=== PATIENT | female | born 1950 | race Caucasian/White ===

== ENCOUNTER 2022-05-02 08:35 | Outpatient (CLI) | payer MEDICARE, BC, SELFPAY | END 2022-05-02 08:36 | disposition home or self-care (01) | LOC: INJ CL 08:39 | PROVIDERS: PCP Family Medicine; Visit Provider Family Medicine | DX: M53.3 Sacrococcygeal disorders, not elsewhere classified (principal) | CPT/HCPCS: 27096; J0702; Q9966 ==

== ENCOUNTER 2022-06-20 09:34 | Outpatient (CLI) | payer MEDICARE, BC, SELFPAY | END 2022-06-20 09:35 | disposition home or self-care (01) | PROVIDERS: PCP Family Medicine; Visit Provider Family Medicine | DX: M47.816 Spondylosis without myelopathy or radiculopathy, lumbar region (principal) | CPT/HCPCS: 64493; 64494; J0702; Q9966 ==

== ENCOUNTER 2023-01-30 08:26 | Outpatient (CLI) | payer MEDICARE, BC, SELFPAY | END 2023-01-30 08:27 | disposition home or self-care (01) | LOC: INJ CL 08:29 | PROVIDERS: PCP Family Medicine; Visit Provider Family Medicine | DX: M53.3 Sacrococcygeal disorders, not elsewhere classified (principal) | CPT/HCPCS: 27096; J1100; Q9966 ==

== ENCOUNTER 2023-10-23 09:51 | Outpatient (CLI) | payer MEDICARE, BC, SELFPAY ==
--- OUTSIDE RECORDS SUMMARY | 2023-10-23 09:54 | XMS_ITS ---
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 Procedure Estimated Blood Loss Check Surgery Details section. Procedure Findings Check Surgery Details section. Procedure Specimens Taken Check Surgery Details section.
--- OUTSIDE RECORDS SUMMARY | 2023-10-23 09:54 | XMS_ITS ---
Author Organization [facility] Address [address] [place] [id number] Care Team Providers Care Manager Ethics Name Role Phone Elsewhere, Pcp Primary Care Provider Unavailabl e Active Problems Problem Noted Date Diagnosed Date Gynecological Examination Normal 02/16/2022 Overview: S/P total abdominal hysterectomy with bilateral salpingo-oophorectomy for endometrial cancer in 2007. Recommend follow-up every 1-2 years for gynecological exam. She no longer requires Pap smears. Cancer Breast Personal History 02/16/2022 Overview: Diagnosed November, with Stage IA (cT1c, cN0, cM0, G1, ER: Positive, KS: Positive, HER2: Negative) right breast cancer. She continues to follow up every 6 months in the breast Clinic at the [facility] in [place]. 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 on 02/04/2018 Overview: Added automatically from request for surgery [id number] Cancer Colon Personal History 08/15/2017 Cancer Endometrium Personal History 08/15/2017 Overview: She is status post laparoscopic vaginal hysterectomy with bilateral salpingo-oophorectomy and bilateral pelvic and periaortic lymphadenectomy on the January for a grade 1, stage IB endometrial cancer. Last Assessment & Plan: Recommend follow-up in 1-2 years for continued visual assessment. Hypertension 12/15/2016 Other Polyuria 09/12/2016 Body Mass Index 40.0 To 44.9 Adult 08/02/2016 Overview: Body mass index (BMI) 40.0-44.9, adult Rule activated problem due to BMI 40-44 posted on 08/02 at 11:01 CDT. Varicose Veins Of Other Specified Sites 02/22/20 13 Hyperlipidemia Mixed 02/21/2013 Keratosis Seborrheic 09/29/2010 Primary Osteoarthritis Knee Bilateral 02/03/2010 Urinary Urge Incontinence 09/29/2009 Hernia Ventral 02/18/2009 Embolus Pulmonary Personal History 08/05/2008 Lymphedema 04/29/2008 Current Oncology Plans No current plan information found. Past Plans No past plan information found. Radiation Treatments * Plan Last Treated On Elapsed Days Fractions Treated Prescribed Fraction Dose Prescribed Total Dose F1 R breast 03/18/2018 21 15 of 15 267 cGy 4,005 c Gy Reference Point Last Treated On Elapsed Days Session Dose Total Dose [id number] 03/18/2018 21 267 cGy 4,005 cGy Treatment Summaries Malignant Neoplasm Of Breast Female Right (HCC)* Your Survivorship Care Plan Provided on 08/19/18 General Information Patient name Melita Glaser (home) Date of 1950 Introduction This is your personal survivorship care plan. It is both a summary of your treatment history as well as a follow-up plan to guide you through the management of your continued medical care. The plan was developed by a multidisciplinary team of [place] cancer providers to help you understand, discuss, and plan post-treatment needs with your healthcare providers, including your primary care team. It includes detailed medical information regarding your treatment as well as information relating to potential shorter and long-term side-effects post-treatment. It also provides specific tools and direction for self-care, including advice on wellness that encompasses both the physical and emotional aspects of your journey to recovery. What is Survivorship? The most widely used definition of survivorship care involves the following elements: 1. Prevention of recurrent and new cancers, and of other late effects; 2. Surveillance for cancer spread, recurrence, or second cancers; assessment of medical and psychosocial late effects; 3. Intervention for consequences of cancer and its treatment, for example: medical problems such aslymphedema and sexual dysfunction; symptoms, including pain and fatigue; psychological distress experienced by cancer survivors and their caregivers; and concerns related to employment, insurance, and disability; and 4. Coordination between specialists and primary care providers to ensure that all of the survivors health needs are met. Care Team Medical Oncologist Dr. Lopez Your point of contact for questions regarding the adverse effects of IV cancer treatments Your point of contact for questions regarding the adverse effects of oral cancer treatments Surgeon Dr. Contreras Your point of contact for any questions regarding your surgical incision or cancer surgery. Radiation Oncologist Dr. Jeffrey Your point of contact for any questions you have regarding radiation therapy including skin issues related to radiation therapy Internal Medicine Breast Clinic Dr. Renee Redding/[place]mira Calero [facility] Genetic Counselor Veronique Lackey Your point of contact for any questions you have regarding genetic tests for cancer Plastic Surgeon Primary Care Physician No primary care provider on file. Your point of contact for any questions regarding your routine health maintance (e.g blood pressure, cholesterol, other cancer screenings) Cancer Diagnosis and Staging Information Diagnosis Malignant Neoplasm Of Breast Female Right (HCC) Diagnosis date 12/14/2017 Staging information Cancer Staging No matching staging information was found for the patient. Breast laterality right Core needle biopsy date 12/12/2017 Size 4 x4 mm, 7mm Grade 2 (intermediate / moderate grade) Estrogen Receptor (ER) status positive Progesterone Receptor (KS) status positive HER2 pura protein status negative Surgical margins Clear (negative or clean) Was re-excision required? No Comments on re-excision Other pathology information [place] lymph node biopsy performed? Yes # Removed 1 # Positive 0 # with micrometastasis (0.2-2 mm) 0 Extracapsular extension 0 Axillary dissection performed? No # Removed # Positive # with micrometastasis (0.2-2 mm) Extracapsular extension no Total number of positive lymph nodes 0 Angiolymphatic invasion No Dermal invasion No Genetic Testing Performed None needed Background Information Family history Cancer-related family history includes Colon cancer in her aunt, father's brother, father's brother, father's sister, and uncle; Lung cancer in her father; Pancreatic cancer in her mother's sister. Social History Alcohol use reports that she drinks alcohol. Tobacco use reports that she quit smoking about 43 years ago. She started smoking about 50 years ago. She has never used smokeless tobacco. Treatment Summary Breast Cancer Surgeries Oncologic Systemic Therapies [No treatment plan] Lifetime Cumulative Dose Lifetime Dose Tracking: No doses have been documented on this patient for the following tracked chemicals: doxorubicin, epirubicin, idarubicin, daunorubicin, mitoxantrone, bleomycin, doxorubicin HCl pegylated liposomal, daunorubicin citrate liposomal, Pediatric total anthracycline, Adult total anthracycline Oral Endocrine Therapy Start date of endocrine therapy January 2018 Drug name Anastrozole 1 mg daily for 5 years Radiation Therapy:?? Treatment Dates: February 25, 2018 - March 18, 2018 ?? 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 The course of treatment was tolerated well and with anticipated side effects. Mrs. Melita Glaser experienced toxicities of grade 1 radiation dermatitis during radiation treatment. Making Healthy Choices After cancer treatment, most people are eager to get back to good health. Many of the steps you cantake to live well are the same steps everyone can take to improve health: -Exercise -Eat a balanced diet -Stay at a healthy weight -Do not use tobacco -Limit alcohol But after cancer treatment, these steps have added benefits. They can improve your quality of life,and they may lower the risk for cancer coming back. Exercise Regular exercise can help you feel better about yourself after cancer treatment. It also may speed your recovery. Exercise may strengthen your immune system and give you more strength and endurance. You may also feel the following benefits from regular exercise: -Less anxiety -More energy -Better sleep -Better mood -Fewer signs and symptoms of depression -Greater self-worth Try to work up to at least 30 minutes of exercise five or more days a week. But don???t do it all at once. Talk to your health care provider before you start an exercise program. Then start slowly. Sometimes you won???t feel like exercising. That???s OK. Do what you can. Remember that rest also is important to your recovery. Eat a balanced diet Choose a healthy, balanced diet. Include lots of fruits, vegetables and whole grains. It???s not known whether a certain kind of diet can keep cancer from coming back. Studies of low-fat diets or diets that have specific foods show mixed results. In general, it???s a good idea to have many different kinds of food in your diet. Follow these guidelines: -Eat five or more servings of fruits and vegetables every day. -Pick healthy sources of carbohydrates, such as whole grains, legumes, and fruits and vegetables. -Choose proteins low in saturated fat, such as fish, lean meats, eggs, nuts, seeds and legumes. -Limit dietary supplements. The best way to get the vitamins and minerals you need is in the food you eat. If you think you need a supplement, talk to your health care provider before you start to take it. Large amounts of some supplements can hurt you. Stay at a healthy weight You may have gained or lost weight during cancer treatment. Try to get your weight to a healthy level. Talk to your health care provider about what a healthy weight is for you and the best way to reach that weight. Get the sleep you need A good night???s sleep can help restore your energy. Most adults need 7 to 9 hours of sleep a night. To help you sleep, try these tips: -Go to bed and get up at about the same time every day. -Follow a bedtime routine each night. -Make your bedroom as quiet and comfortable as possible. -Don???t use caffeine or alcohol or drink a lot of fluids before bedtime. After cancer treatment, some people struggle with feeling tired. If this is a problem for you, paceyourself during the day. Save energy for the work you need to do. Limit naps to about 10 to 30 minutes in the middle of the afternoon, so they don???t cause problems with your sleep at night. Do not use tobacco Smoking cigarettes or using any other tobacco puts you at risk for several kinds of cancer. If you smoke and you stop now, you could lower your risk for future cancers. If you have tried to quit smoking but have not been able to do so, seek help. Talk to your health care provider about programs in your area that can help you. Limit alcohol If you choose to drink alcohol, keep it to a minimum. Women and anyone over 65 should have no more than one alcoholic drink a day. Men younger than 65 should not have more than two alcoholic drinks aday. Alcohol does have health benefits for some people. Having one drink a day may lower your risk for heart disease. But alcohol also raises your risk for certain cancers. These include breast, mouth and throat cancers. Think about the risks and benefits of drinking alcohol. Talk about alcohol usewith your health care provider. Understand complementary therapies You can use complementary therapies along with your other medical care. In some people, complementary therapies may ease tiredness, help manage stress and lower pain. Examples of these therapies include: -Mind-body therapies, such as relaxation techniques, aromatherapy and meditation. -Therapy that uses manipulation and touch, such as massage. -Energy therapy, such as acupuncture and healing touch. Talk to your health care provider to learn more about the risks and benefits of complementary therapies. Schedule of Surveillance Testing and Visits The basis for the surveillance testing schedule and test recommendations in this section are largely based on guidelines from the [place] [employer] (ASCO), the biggest cancer society regarding clinical practice. -Physical examinations should be performed every 3 to 6 months for the first 3 years, every 6 to 12months for years 4 and 5, and annually thereafter. -Monthly breast and/or chest wall self examinations. -Women who have undergone breast conserving surgery should have a post treatment mammogram 1 year after the initial mammogram and at least 6 months after completion of radiation therapy. Thereafter, unless otherwise indicated, a yearly mammographic evaluation should be performed. Message from provider: Surveillance visits How often: Every 6 months for the 1st 5 years post diagnosis With Who: Primary Care Additional information: Imaging (mammograms and bone scans) How often: Annual diagnostic mammograms for the 1st 5 years post diagnosis and then annual screening mammograms there after Where: Her local provider clinic Additional information: Follow-up care with your Primary Care Physician (PCP) Follow-up care with your primary care physician is recommended for age- appropriate cancer screenings, for monitoring blood pressure, cholesterol, blood sugar, weight, and for other medical conditions. Your Potential side effects x indicates this is a possibility for you x Side Effects from Endocrine Therapy Endocrine therapy uses medication that travels through your body to either reduce the amount of hormones that reach hormone-sensitive cancer cells or block the action of estrogen so cancer cells stopgrowing and . Women whose tumors are hormone receptor positive generally have a lower rate of cancer returning inthat location and have a longer overall survival rate. Hormonal therapy appears to lessen the chance of recurrence and improve survival rates. Tamoxifen (Nolvadex???) blocks a tumor???s ability to use hormones. It typically is taken daily in pill form for five years after cancer surgery. Tamoxifen is available for women who are premenopausal or postmenopausal. Common side effects of tamoxifen include: -Hot flashes or night sweats. -Nausea. -Irregular periods in women prior to menopause. -Vaginal discharge. -Vaginal itching, dryness or irritation. Less frequent symptoms include depression, loss of appetite, eye problems such as cataracts, headache, and weight gain. There also can be an increased risk of blood clots, strokes and uterine cancerssuch as endometrial cancer. Another group of hormonal medications called aromatase inhibitors are available for post-menopausalwomen who have hormone receptor positive breast cancer. Rather than blocking a tumor???s ability touse estrogen, aromatase inhibitors prevent tumor growth by reducing the amount of estrogen the bodyproduces. The three aromatase inhibitors currently approved for use in breast cancer treatment are anastrozole (Arimidex???), exemestane (Aromasin???) and letrozole (Femara???). Aromatase inhibitors come in pill form and typically are taken daily for five years. They appear to be as effective as tamoxifen, with fewer side effects and less risk of blood clots and uterine cancer. However, aromatase inhibitors are associated with a small increased risk for osteoporosis. Common side effects of aromatase inhibitors include: -Joint/ muscle pain -Muscle pain. -Hot flashes. -Vaginal dryness. -Fatigue x Side Effects from Radiation Therapy Side effects from radiation therapy tend to build up; they may affect you more toward the end of your radiation treatment. Side effects usually lessen over time after radiation treatment ends. Common side effects include the following: Fatigue is the most common side effect of radiation therapy. Try to plan for this possibility by limiting your extra activities so that you can rest whenever you feel the need. Sometimes putting yourfeet up for 15 to 20 minutes can help you feel rested. Your skin near the radiation site may feel as if it were sunburned. It may be itchy, red, shiny, sore or swollen and may peel or blister. For some women, sensation at the radiation site may increase or it may decrease. -You may have swelling, pain, or tenderness in the breast. -Your breast may become tender, darker, firmer or smaller from radiation therapy. -You also may have a feeling of heaviness in the breast. These changes may be permanent. More serious, long-term complications are rare but they can occur. These include rib fractures, lung inflammation, nerve damage and injury to the heart. In extremely rare cases, a new tumor may result from radiation therapy. If you receive radiation after a mastectomy with immediate reconstruction,you may be at higher risk for healing problems and for the reconstruction to fail, and you may needmore surgery. How your breast looks may not be as good as it would have been had you not received radiation. If you experience or have concerns about the side effects of radiation therapy, talk with your health care provider. Your Ongoing Side Effects x indicates this is a possibility for you x Fatigue Some cancer survivors report that they still feel tired or worn out. In fact, fatigue is one of themost common complaints during the first year of recovery. Rest or sleep does not cure the type of fatigue that you may have. Doctors do not know its exact causes. The causes of fatigue are different for people who are receiving treatment than they are for those who have finished. Fatigue during treatment can be caused by cancer therapy. Other problems can also play a part in fatigue, like anemia (having too few red blood cells) or having a weak immune system. Poor nutrition, not drinking enoughliquids, and depression can also be causes. Pain can make fatigue worse. Researchers are still learning about what may cause fatigue after treatment. How long will fatigue last? There is no normal pattern. For some, fatigue gets better over time. Some people may still feel energy loss years later. Some people feel very frustrated when fatigue lasts longer than they think it should and when it gets in the way of their normal routine. They may also worry that their friends, family, and coworkers will get upset with them if they continue to show signs of fatigue. Getting Help Talk with your doctor or nurse about what may be causing your fatigue and what can be done about it. Ask about: -How many medicines you are taking or other medical problems you have might affect your energy level -How you can control your pain, if pain is a problem for you -Exercise programs that might help, such as walking -Relaxation exercises -Changing your diet or drinking more fluids -Medicines or nutritional supplements that can help -Specialists who might help you, such as physical therapists, occupational therapists, procedures nurse, or mental health care providers Coping With Fatigue Here are some ideas: -Plan your day. Be active at the time of day when you feel most alert and energetic. -Save your energy by changing how you do things. For example, sit on a stool while you cook or washdishes. -Take short naps or rest breaks between activities. -Try to go to sleep and wake up at the same time every day. -Do what you enjoy, but do less of it. Focus on old or new interests that don???t tire you out. Forexample, try to read something brief or listen to music. -Let others help you. They might cook a meal, run errands, or do the laundry. If no one offers, askfor what you need. Friends and family might be willing to help but may not know what to do. -Choose how to spend your energy. Try to let go of things that don???t matter as much now. -Think about joining a support group. Talking about your fatigue with others who have had the same problem may help you find new ways to cope. x Changes in Weight and Eating Habits Some survivors who have had certain kinds of chemotherapy or medicines have problems with weight gain. Sometimes the added pounds stay on even when treatment ends. Breast cancer survivors who have had certain types of chemotherapy gain weight in a different way--they may lose muscle and gain fat tissue. Unfortunately, the usual ways people try to lose weight may not work for them. Try to be patient with yourself. Look for the positive things that you can control, such as eating a healthy diet. Try to focus on the fact that treatment is over, and you are trying to get stronger with time. Some cancer survivors have the opposite problem: they have no desire to eat, and they lose weight. Some men say that weight loss or loss of muscle tone is a bigger concern for them than weight gain. It makes them feel less strong and like less of a man. Managing a Healthy Weight For weight issues, ask your doctor or nurse about: -Doing strength-building exercises, if you have lost muscle or gained fat tissue -Talking to a dietitian or lather apprentice who can help you plan a healthy diet that won???t add extrapounds Regaining a Lost Appetite Here are some tips that have helped others improve their appetites: -Start with small meals. Five small meals a day may be easier to manage than three larger ones. -Focus on your favorite foods. If the thought of eating still lacks appeal, try the foods you really liked before treatment to jump-start your appetite. Try adding some fresh fruit, juice, or other flavoring to improve the taste. -Stay active. A short walk before a meal can help you feel hungry. Menopause Symptoms After chemotherapy, some women stop getting their periods every month-- or stop getting them altogether. Some cancer treatments (and the medicines tamoxifen and raloxifene) can cause changes in women???s bodies and reduce the amount of hormones they make. These changes can cause your periods to stop, as well as cause other symptoms of menopause (also called ???the change?? or ???change of life?? ). Over time, some women will start getting their periods again (this is more likely foryounger women), but others will not. Even though your doctor may have discussed early menopause with you, give yourself permission to mourn the loss of your fertility. Some common signs of menopause are: Irregular periods. One of the first signs is a change in your periods. They may become less regular. They could be engagement quality consultant. Some women have short times of heavy bleeding. Sometimes, they stop all of a sudden. Hot flashes. Hot flashes are often worse at night and can affect sleep or cause mood changes. Problems with your vagina or bladder. Tissues in these areas become drier belt conveyor and thinner. You may be more likely to get vaginal infections. As you get older, you may also have problems holding your urine or urinary tract problems. Lack of interest in having sex. These changes may make it hard for you to become sexually aroused. Fatigue and sleep problems. You may feel tired or have trouble getting to sleep, getting up early, or getting back to sleep after waking up in the middle of the night. Memory and other problems, such as depression, mood swings, and irritability. Some of these, especially memory problems, may be related to growing older. There may be a connection between changes in your hormone levels and your emotions. Other changes in your body. You may notice your waist getting bigger, less muscle and more fat around your body, or thinning and loss of elasticity of your skin. Ask your doctor if you still need to use control, even if you are not getting your period. Understand the Emotional Impact x indicates this is a possibility for you After cancer treatment, you may feel your life has changed in some ways that are hard to explain. It may seem hard to get back to ???normal.?? It is common for people who have had cancer to feel many emotions, including anxiety, depression, anger, grief or guilt. These are reasonable responses to a big health change. To help handle these emotions, you may need to decide what ???normal?? means to you after all the changes you have gone through. Doing this may help you find a new way to live that brings you more dex and meaning. If you feel emotionally overwhelmed after your cancer treatment, tell your health care provider. She or he may be able to connect you with a support group or other support services. Your health care provider may also offer you treatment choices for specific concerns or refer to you a mental health p fessional. x Anxiety Anxiety is a common emotion among people who have had cancer. Fear of cancer coming back often causes anxiety. Because of this, follow-up testing can be stressful. Other common sources of anxiety include job issues, concerns about money or relationships, and worries about the physical effect of cancer treatment. What you can do -Talk about your worries with someone you trust. -Try stress management tools, such as meditation, prayer and regular exercise. -Learn the signs that may tell you your cancer has returned. Learn what you can do to lower your cancer risk. -Focus on the healthy choices you can make in areas of your life that you can control. If anxiety makes your daily life difficult, see your health care provider. x Depression After cancer treatment, you may have many different feelings as you think about what you have been through. Some of these feelings may not be positive. That is normal. However, negative feelings thatstay with you for more than two weeks or get in the way of your daily life can be signs of depression. If this happens to you, talk to your health care provider. Symptoms of depression include: -Sadness -Hopelessness -Loss of interest in activities -Irritability -Difficulty Sleeping -Change in appetite -Difficulty concentrating -Problems thinking clearly Anger Many cancer survivors feel a sense of anger. Cancer may change many parts of your life, including relationships, school, work, and correction plans. Anger is a normal response to those changes. What you can do It is important to express your anger in a healthy way. Talk about the way you are feeling with someone you trust. Think about whether you can talk with: -Friends -Family members -Other people who have been through cancer -A professional counselor -Your health care provider x Spiritual issues A cancer diagnosis may change your spirituality. You may find it to be stronger and deeper and fromthe challenges you have overcome, or you may feel abandoned and struggle with the question Why me? What you can do - Take time to think about your spirituality. Try to find a sense of peace within your own spiritual framework. -Talk with your spiritual or leadership recruiter to help guide you through some of the questions raised by your illness. -Consider using the [employer] staff at [facility] to help you with your spiritual questions. x Back to Work Going back to work can be a challenging transition after cancer treatment. If you have questions about employment, ask your health care provider to refer you to a [facility] social work msw. He or shecan give you workplace information. Americans with Disabilities Act If you believe that your physical function is temporarily or permanently affected by cancer or its treatment, you should know about the Americans with Disabilities Act, or ADA. ADA bans discrimination against qualified employees with disabilities who can perform the essential functions of their job, with or without reasonable accommodations. Cancer survivors who return to work are due any reasonable change or adjustment in their work environment that allows a person with a disability to have equal opportunities. A social work msw can help you look at your situation and the Americans with Disabilities Act Genetic testing and employment Sometimes cancer diagnosis and treatment involves genetic testing. This information becomes a part of your medical record. It is against the law for an employer to discriminate against a job applicant or a current or former employee because of genetic information. Additional Information for you: Some of the information provided in this care plan was provided by the [place] Department of Health and Human Services and National Cancer Leupp. (2014) Facing Forward: Life after cancer treatment. NIH Publications No. 14-8978. Resources [employer] [place] [employer] The [place] [employer] is a non-profit organization that has developed many resources for patients and families dealing with a cancer diagnosis. http://www.cancer.org National Cancer Leupp The National Cancer Leupp (NCI) is part of the National [employer] for Health and is a governmental organization with a mission focused on cancer research and training. The NCI has developed many patient resources related to cancer. Included here is their Facing Forward which is an electronic resource focused on helping patients negotiate their lives after cancer treatment. http://www.cancer.gov http://www.cancer.gov/cancertopics/coping/dsgd-gvvqx-yqbwhzkmr [facility] Cancer Education Program www.[employer].org/cancer-education Cancer Support Community www.cancersupportcommunity.org/?gclid=BMrd-6-1jZUJJLxWsKjfweLE6i [facility] Living with Cancer blog www.[employer]/livingwithcancer [facility] web site www.[employer].org Resolved Problems Problem Noted Date Diagnosed Date Resolved Date Thrombosis Deep Vein Without Delivery 02/21/2013 08/15/2017 Morbid obesity 01/09/2012 08/15/2017 Edema 10/12/2008 08/15/2017 Thrombosis Deep Vein Acute Lower Extremity 05/22/2008 08/15/2017 Overview: Deep Vein Thrombosis Lower Extremity NOS Malignant Neoplasm Of Endometrium 04/22/2008 08/15/2017 Overview: Ca Uterus Endometrial Malignant Neoplasm Of Uterus Endometrial 04/22/2008 08/15/2017 Malignant Neoplasm Of Endometrium 01/29/2008 08/15/2017 Malignant Neoplasm Of Rectum 05/31/2004 08/15/2017
--- OUTSIDE RECORDS SUMMARY | 2023-10-23 09:54 | XMS_ITS | Encounter Summary ---
Author Organization [facility] Address [address] [place] [id number] Care Team Providers Care Signwriter Name Role Phone Elsewhere, Pcp Primary Care Provider Unavailabl e Reason for Visit * Reason Comments Follow-up Post Botox * Outpatient (Routine) - Closed Specialty Diagnoses / Procedures Referred By Sarina t Referred To Contact Urology Nicolasa Fields APRN, C.N.P. [address] [phone] [facility] Region Referral ID Status Reason Start Date Expiration Date Visits Re quested Visits Authorized [id number] Closed 08/21/2023 02/19/2025 1 1 Encounter Details Date Type Department Care Team (Late st Contact Info) Description 10/08/2023 2:30 PM CDT Office Visit Department of Urology in [place] [address] [place] [phone] Nicolasa Fields APRN, C.N.P. [address] [phone] Urinary Urge Incontinence (Primary Dx) Social History Tobacco Use Types Packs/Day Years Used Date Smoking Tobacco: Former Cigarettes 0 12/23/1967 - 06/22/1975 Smokeless Tobacco: Never Tobacco Cessation:Counseling Given: Not Answered Comments:Only a social smoker when I smoked. Maybe smoked a pack a week. Alcohol Use Standard Drinks/Week Comments Yes 1 (1 standard drink = 0.6 oz pur e alcohol) Rarely drink. [facility] Utilities Answer Date Recorded In the past 12 months has th e electric, gas, oil, or water company threatened to shut off services in your home? No 10/01/2023 Humiliation, Afraid, Rape, and Kick questionnair e Answer Date Recorded Within the last year, have y ou been afraid of your partner or ex-partner? No 09/18/2022 Within the last year, have y ou been humiliated or emotionally abused in other ways by your partner or ex-partner? No Within the last year, have y ou been kicked, hit, slapped, or otherwise physically hurt by your partner or ex-partner? No 09/18/2022 Within the last year, have y ou been raped or forced to have any kind of sexual activity by your partner or ex-partner? No 09/18/2022 Social Connection and Isolat ion Panel [NHANES] Answer Date Recorded In a typical week, how many times do you talk on the phone with family, friends, or neighbors? More than three times a week 09/04/2022 How often do you get togethe r with friends or relatives? More than three times a week 09/04/2022 How often do you attend chur ch or voodoo services? 1 to 4 times per year 09/04/2022 Do you belong to any clubs o r organizations such as latter day groups, unions, fraternal or athletic groups, or school groups? Yes 09/04/2022 How often do you attend meet ings of the clubs or organizations you belong to? More than 4 times per year 09/04/2022 Are you , , di vorced, , never , or living with a partner? 09/04/2022 AUDIT-C Answer Date Recorded Q1: How often do you have a drink containing alc ohol? 2-4 times a month 09/04/2022 Q2: How many drinks containi ng alcohol do you have on a typical day when you are drinking? 1 or 2 09/04/2022 Q3: How often do you have si x or more drinks on one occasion? Never 09/04/2022 Overall Financial Resource Strain (CARDIA) Answe r Date Recorded How hard is it for you to pa y for the very basics like food, housing, medical care, and heating? Not hard at all 09/18/2022 PHQ-2 Answer Date Recorded PHQ-2 Score 0 11/25/2019 [facility] Occupat ional Health - Occupational Stress Questionnaire Answer Date Recorded Do you feel stress - tense, restless, nervous, or anxious, or unable to sleep at night because your mind is troubled all the time - these days? Only a little 09/04/2022 Exercise Vital Sign Answer Date Recorde d On average, how many days pe r week do you engage in moderate to strenuous exercise (like a brisk walk)? 2 days 10/01/2023 On average, how many minutes do you engage in exercise at this level? 50 min 10/01/2023 Hunger Vital Sign Answer Date Recorded Within the past 12 months, y ou worried that your food would run out before you got the money to buy more. Never true 10/01/19 24 Within the past 12 months, t he food you bought just didn't last and you didn't have money to get more. Never true 10/01/2023 PRAPARE - Transportation Answer Date Re corded In the past 12 months, has l ack of transportation kept you from medical appointments or from getting medications? No 09/21 In the past 12 months, has l ack of transportation kept you from meetings, work, or from getting things needed for daily living? No 10/01/2023 Nutrition Answer Date Recorded On average, how many serving s of fruits and vegetables do you eat per day (serving size is equal to 1 cup or approximately the size of a tennis ball)? 3-5 10/01/2023 Dental Answer Date Recorded Dental: Regular Dentist Yes 06/15/19 Employment Answer Date Recorded Employment status Retired 10/01/2023 Housing Stability Answer Date Recorded What is your living situation today? I have a [facility] [place] [address] to live 10/01/2023 Education Answer Date Recorded What is the highest level of school you have completed or the highest degree you have received? 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 - 10/08/2023 2:30 PM CDT SUBJECTIVE CHIEF COMPLAINT/REASON FOR VISIT Chief Complaint Patient presents with Follow-up Post Botox HISTORY OF PRESENT ILLNESS Melita is a pleasant 72-year-old female here today for follow-up after intravesical Botox injectionswith Dr. Livingston on September 27, 2023. She is emptying her bladder well, her urinary symptoms are greatly improved. She gets up once in the night to urinate. She takes trospium 20 mg tablet at bedtime and is very pleased with results. The following portions of the patient's history were reviewed and updated as appropriate: allergies, current medications, family history, medical history, social history, surgical history, and problem list. DIAGNOSTIC Postvoid residual by bladder scan 21 mL ASSESSMENT / PLAN 1. Urinary Urge Incontinence She is doing well, emptying her bladder well, urinary symptoms have improved. Plan to follow-up in Urology Department as needed. When she is ready to schedule Botox injections again she will contact us. All questions answered. Signed by: Nicolasa Fields APRN, C.N.P. 10/08/2023 4:50 PM CDT documented in this encounter Plan of Treatment Not on file documented as of this encounter Visit Diagnoses Diagnosis Urinary Urge Incontinence- Primary documented in this encounter Care Teams Signwriter Relationship Specialty Start Date End Date Elsewhere, Pcp PCP - General Internal Medicine 01/04/23 documented as of this encounter
--- OUTSIDE RECORDS SUMMARY | 2023-10-23 09:54 | XMS_ITS | Clinical Summary ---
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 For routine questions regarding patient records, call [phone] during business hours, M-F 8:00 AM - 5:00 PM Central Time. Record requests for emergency care only can be directed to [phone] at any time.[facility] Allergies Active Allergy Reactions Criticality Noted Date Comments Clams GI intolerance Medium 10/12/2008 Projectile vomiting Lisinopril Cough Medium 10/27/2016 Oxycodone-Acetaminophen Anxiety 08/15/2017 Medications Medication Sig Dispensed Refills Start Date End Date Status atorvastatin (LIPITOR) 20 mg tablet Take 20 mg by mouth daily. 10/27/2016 Active cholecalciferol (VITAMIN D3) 1,000 Unit capsule Take 1 tablet by mouth daily. 02/25/2014 Active cinnamon bark 500 mg capsule Take 1,000 mg by mouth daily. 02/15/2011 Active docusate sodium (COLACE) 100 mg capsule Take 100 mg by mouth as needed for constipation. 02/25/2014 Active multivit-min/iron /folic/lutein (CENTRUM SILVER WOMEN ORAL) Take 1 tablet by mouth daily. 10/04/2010 Active piroxicam (FELDENE) 20 mg capsule Take 1 capsule by mouth daily. 10/04/2010 Active metFORMIN XR (GLUCOPHAGE-XR) 500 mg 24 hr tablet Take 1 tablet by mouth daily. 05/14/2021 Active DME Gradient compression garments & suppliesIndicatio ns:Lymphedema DME Order Open Toe 4 Unspecified 02/16/2022 Active losartan (COZAAR) 100 mg tablet 08/28/2022 Active anastrozole (ARIMIDEX) 1 mg tabletIndications :Cancer Breast Personal History TAKE 1 TABLET(1 MG) BY MOUTH DAILY. SWALLOW WHOLE WITH A DRINK OF WATER 90 tablet 11/17/2022 Active potassium chloride (KLOR-CON M) 10 mEq ER tablet Take 10 mEq by mouth daily with breakfast. 10/04/2022 Active furosemide (LASIX) 20 mg tablet Take 20 mg by mouth daily. 10/04/2022 Active losartan (COZAAR) 50 mg tablet Take 50 mg by mouth daily. 03/16/2023 Active trospium (SANCTURA) 20 mg tablet TAKE 1 TABLET(20 MG) BY MOUTH TWICE DAILY BEFORE BREAKFAST AND DINNER 180 tablet 3 05/28/2023 Active tirzepatide (MOUNJARO) 2.5 mg/0.5 mL pen injector injection Inject 2.5 mg under the skin over 168 hr. 08/29/2023 Active tirzepatide (MOUNJARO) 15 mg/0.5 mL pen injector injection Inject 15 mg under the skin over 168 hr. 12/19/2023 Active tirzepatide (MOUNJARO) 12.5 mg/0.5 mL pen injector injection Inject 12.5 mg under the skin over 168 hr. 11/21/2023 12/19/2023 Active tirzepatide (MOUNJARO) 10 mg/0.5 mL pen injector injection Inject 10 mg under the skin over 168 hr. 10/24/2023 11/21/2023 Active tirzepatide (MOUNJARO) 7.5 mg/0.5 mL pen injector injection Inject 7.5 mg under the skin over 168 hr. 09/26/2023 Active cefdinir (OMNICEF) 300 mg capsule Take 1 capsule (300 mg total) by mouth every 12 (twelve) hours for 7 days. 14 capsule 09/18/2023 09/25/2023 Hospital, Clinic, or Other Facility Administered Medication Ordered Dose Route Frequency Start Date End Date Status onabotulinumtoxinA injection 100 Units (BOTOX)Indications:Urinary Urge Incontinence,Hypertonic Bladder 100 Units dtrs Once 09/27/2023 09/27/2023 Ended Active Problems Problem Noted Date Diagnosed Date Gynecological Examination Normal 02/16/2022 Overview: S/P total abdominal hysterectomy with bilateral salpingo-oophorectomy for endometrial cancer in 2007. Recommend follow-up every 1-2 years for gynecological exam. She no longer requires Pap smears. Cancer Breast Personal History 02/16/2022 Overview: Diagnosed November, with Stage IA (cT1c, cN0, cM0, G1, ER: Positive, OK: Positive, HER2: Negative) right breast cancer. She continues to follow up every 6 months in the breast Clinic at the [facility] in [place]. 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 on 02/04/2018 Overview: Added automatically from request for surgery [id number] Cancer Colon Personal History 08/15/2017 Cancer Endometrium [...] Embolus Pulmonary Personal History 08/05/2008 Lymphedema 04/29/2008 Resolved Problems Problem Noted Date Diagnosed Date [...] 08/15/2017 Malignant Neoplasm Of Rectum 05/31/2004 08/15/2017 Encounters Date Type Department Care Team Description 10/08/2023 2:30 PM CDT Office Visit Department of Urology in [place], [place] [address] [place] [address] Nicolasa Fields APRN, C.N.P. Urinary Urge Incontinence (Primary Dx) 09/27/2023 2:30 PM CDT Procedure visit Department of Urology in [place], [place] [address] [phone] Schuyler Livingston M.D. Hypertonic Bladder (Primary Dx); Urinary Urge Incontinence 09/18/2023 Orders Only Department of Urology in [place], [place] [address] [address] Nicolasa Fields APRN, C.N.P. 09/14/2023 11:20 AM CDT - 09/14/2023 11:59 PM CDT Hospital Encounter Department of Laboratory Medicine in [place], [place] [address] [place] [phone] Nicolasa Fields APRN, C.N.P. Urinary Urge Incontinence Discharge Disposition: Home or Self Care from Last 3 Months Immunizations Name Administration Dates Next Due H1N1 Inj 04/06/2009 HZV (ZOSTAVAX) 05/05/2009 HepA Adult 12/15/2016,06/03/2000 HepB Adult 12/30/2013,07/24/2013,06/27/2013 Influenza (IM) Preservative Free 01/14/2009,01/22 Influenza TIV (IM) 01/01/2019, 1,03/07/2005,2003,02/19/2003 Influenza high dose QV(65 ye ars or older) (PF) 01/09/2020 Influenza, Quadrivalent, Adj uvanted, Preservative Free 01/23/2023,01/01/2022,01/27/2021 Influenza, Unspecified 03/07/2005,02/18/2004, PCV13 03/06/2014 PCV20 10/05/2022 PPSV23 07/29/2015 RSV: respiratory syncytial v irus (ABRYSVO) bivalent vaccine 01/23/2023 RZV (SHINGRIX) 09/23/2018, 9(Deferred: Other - Patient states 05/24/2018),07/22/2018,05/24/2018 SARS-COV-2 (COVID-19) - MODERNA(Discontinued) 07/10/2020,06/10/2020 SARS-COV-2 (COVID-19) - PFIZ ER (Discontinued)(12 years or older) 12/16/2020 Td Preservative Free (TENIVA C, DECAVAC) 10/27/2016 Tdap 09/27/2006 TyVi (inj) 06/18/2013 Typhoid, Unspecified 05/24/2000 Typhus (discontinued) 05/24/2000 influenza high dose (65 year s or older) (PF) 01/01/2019,01/21/2018,01/26/2014 Family History Medical History Relation Name Comments Colon cancer Aunt Paternal Age 52 Lung cancer Father Chris Cabezas passed at 69 Colon cancer Father's Brother 1 Fran Cabezas Colon cancer Father's Brother 2 Jeremiah Cabezas Daughter, Alda, had colon cancer Colon cancer Father's Sister Mattie Castillo No Known Problems Maternal Grandfather pa ssed in 80's No Known Problems Maternal Grandmother po ssible stroke Arthritis Mother Chanelle Cabezas Osteoporosis Mother Chanelle Cabezas pelvic fracture Mother Chanelle Cabezas related to fall Other cancer Mother's Brother 1 Alonso Gutierrez Bladd er cancer Stroke Mother's Brother 2 Sigmund Chogabonackayla Stroke Mother's Brother 3 Iain Chogabonackayla Pancreatic cancer Mother's Sister Mira Riggs Lung disease Paternal Grandmother overweight Sister 1 dry eye Sister 2 No Known Problems Son 1 No Known Problems Son 2 Colon cancer Uncle Paternal Age 56 Relation Name Status Comments Aunt Paternal Father Chris Cabezas Father's Brother 1 Fran Cabezas Father's Brother 2 Jeremiah Cabezas Father's Sister Mattie Castillo Maternal Grandfather Maternal Grandmother Mother Chanelle Cabezas Mother's Brother 1 Alonso Gutierrez Mother's Brother 2 Sigmbeth Gutierrez Mother's Brother 3 Iain Mynorki Mother's Sister Mira Riggs Paternal Grandfather Paternal Grandmother Sister 1 Alive Sister 2 Alive Son 1 Alive Son 2 Alive Uncle Paternal Social History Tobacco Use Types Packs/Day Years Used Date Smoking Tobacco: Former Cigarettes 0 12/23/1967 - 06/22/1975 Smokeless Tobacco: Never Tobacco Cessation:Counseling Given: Not Answered Comments:Only a social smoker when I smoked. Maybe smoked a pack a week. Alcohol Use Standard Drinks/Week Comments Yes 1 (1 standard drink = 0.6 oz pur e alcohol) Rarely drink. [facility] Utilities Answer Date Recorded In the past 12 months has e [employer], oil, or water the grafter threatened to shut off services in your [...] often do you attend chur ch or taoism services? 1 to 4 times per year 09/04/2022 Do you belong to any clubs o r organizations such as uatsdin groups, unions, fraternal or athletic groups, or [...] Answer Date Recorded PHQ-2 Score 0 11/25/2019 [facility] of Occupat ional Health - Occupational Stress [...] Date Recorded Dental: Regular Dentist Yes 06/15/19 21 Employment Answer Date Recorded Employment status Retired 10/01/2023 Housing Stability Answer Date Recorded What is your living situation today? [facility] 10/01/2023 Education Answer Date Recorded What is the highest level of school you have completed or the highest degree you have received? Master's degree (e.g., MA, MS, Enrique, MEd, ROOFER, ALLYN) 01/09/2019 Sex and Gender Information Value Date Recorded Sex Assigned at Female 09/19/2017 7:29 PM CDT Gender Identity Female 09/19/2017 7:29 PM CDT Sexual Orientation Straight 09/19/2017 7: 29 PM CDT Last Filed Vital Signs Vital Sign Reading Time Taken Comments Blood Pressure 147/84 03/29/2023 3:04 PM [employer] Pulse 83 03/29/2023 3:04 PM [employer] Temperature 37 ??C (98.6 ??F) 12/06/2020 1:49 PM CDT Respiratory Rate 20 11/25/2019 12:44 PM CDT Oxygen Saturation 95% 12/06/2020 1:49 PM CDT Inhaled Oxygen Concentration - - Weight 131 kg (289 lb 11 oz) 03/29/2023 3:04 PM [employer] Height 168.5 cm (5' 6.34) 03/29/2023 3:04 PM CS T Body Mass Index 46.28 03/29/2023 3:04 PM [employer] Plan of Treatment Health Maintenance Due Date Last Done Comments CT Colonography 1950 Cologuard 1950 Hepatitis C Screening 1950 Depression Screening (Annual PHQ-2) 04/23/2023 Fall Risk Screen (Annual) 04/23/2023 Office Visit for Blood Pressure Check / Re-check 06/28/2023 03/29/2023 Influenza Vaccine (#1) 2024 , 01/01/2022, 01/27/2021, Additional history exists Creatinine Level (Kidney Function Test) 03/20/2024 03/20/2023, 10/17/2022, 10/04/2022, Additional history exists Potassium Level 03/20/2024 03/20/2023, 09/22, 10/04/2022, Additional history exists Sodium Level 03/20/2024 03/20/2023, 09/22, 10/04/2022, Additional history exists Mammogram 03/29/2024 03/29/2023, 12/2021, 02/01/2021, Additional history exists Colonoscopy 02/08/2026 02/08/2021, 01/21, 10/05/2010 (Performed elsewhere), Additional history exists Colorectal Cancer Surveillance 02/08/2026 Fasting Glucose for Diabetes Screening 03/20/2026 03/20/2023, 10/17/2022, 10/04/2022, Additional history exists DTaP,Tdap,and Td Vaccines (3 - Td or Tdap) 10/27/2026 10/27/2016, 09/27/2006 Lipid (Cholesterol) Screening 03/20/2028 03/20/2023, 03/03/2022, 02/18/2021, Additional history exists Hepatitis B Vaccines Completed 12/30/2013, 07/24/2013, 06/27/2013 Hepatitis A Vaccines Completed 12/15/2016, 06/03/19 Zoster Vaccines Completed 09/23/2018, 04/2018, 05/24/2018, Additional history exists Bone Density Scan (Osteoporosis Screen) Discontinued 03/01/2022 Pneumococcal vaccine (65+ years) Completed 10/05/2022, 07/29/2015, 03/06/2014 RSV vaccine - (32-36 weeks) or 60+ years Completed 01/23/2023 COVID-19 Vaccine Completed 07/24/2023, 06/2022, 08/24/2022, Additional history exists HPV Vaccines Aged Out No longer eligi ble based on patient's age to complete this topic Medical Devices Implanted Type [employer] Device Identifier Shelf Expiration Date Model / Serial / Lot Clp Hrzn Ti 6 Clp Md Dank - [id number] Implanted:Qty: 1 on 12/31/2017 by Monica Contreras M.D. at [facility] Hardware e.g. pins/screw s/rods [employer] [id number] / / Clp Hrzn Ti 6 Clp Sm Red - [id number] Implanted:Qty: 1 on 12/31/2017 by Monica Contreras M.D. at [facility] Hardware e.g. pins/screw s/rods Weck (Div of [employer]) [id number] 07/21/2022 1201 / / [id number] Gabo Lopez Tib Mb Sz 4.0 - Wright [id number] Implanted:Qty: 1 on 04/12/2010 Knee Implant Other/Legacy - See Implant Description [employer] Description:Device Manufactu rer - [employer]. Body Location - Other. Right. Device Status Text - [id number] [id number]. Sigma Post Stab.W Lug Fem Sz 4n Rt - Wright [id number] Implanted:Qty: 1 on 04/12/2010 Knee Implant Other/Legacy - See Implant Description [employer] Description:Device Manufactu rer - [employer]. Body Location - Other. Right. Device Status Text - KNEE [id number]. J Gabo Tib Insert Sigma 4x12.5 - Wright [id number] Implanted:Qty: 1 on 04/12/2010 Knee Implant Other/Legacy - See Implant Description [employer] Description:Device Manufactu rer - [employer]. Body Location - Other. Right. Device Status Text - KNEE [id number]. J J Sig Patella Oval 38 - Wright [id number] Implanted:Qty: 1 on 04/12/2010 Knee Implant Other/Legacy - See Implant Description [employer] Description:Device Manufactu rer - [employer]. Body Location - Other. Right. Device Status Text - KNEE [id number]. Patch Dual Mesh 1mm 20.0 X 30 - Wright [id number] Implanted:Qty: 1 on 01/13/2009 Mesh or Patch Other/Legacy - See Implant Description [place] Description:Device Manufactu rer - [employer] Body Location - ?. Not Applicable. Device Status Text - [id number]. Cement Bone Large - Wright [id number] Implanted:Qty: 1 on 04/12/2010 Mis Other [place] Description:Device Manufactu rer - [place] [employer]iola.. Device Status Text - [id number]. Cement Bone Small - Wright [id number] Implanted:Qty: 1 on 04/12/2010 Misc Other [place] Description:Device Manufactu rer - [place] [employer].. Device Status Text - [id number]. Procedures Procedure Name Priority Date/Time Associated Diagnosis Comments URO CYSTO W/BOTOX Routine 09/27/2023 2:3 0 PM CDT Urinary Urge Incontinence URINALYSIS WITH MICROSCOPIC Routine 09/14/2023 11:27 AM CDT Urinary Urge Incontinence BACTERIAL CULTURE, AEROBIC + SUSC, URINE Routine 09/14/2023 11:27 AM CDT Urinary Urge Incontinence BI BREAST DIAGNOSTIC BILATERAL WITH TOMOSYNTHESIS RAD - Routine (most inpatients and all outpatients) 03/29/2023 10:56 AM [employer] Screening Mammogram Breast Cancer EXTI LIPID PANEL W REFLEX MEASURED LDL Routine 03/20/2023 10:05 AM [employer] EXTI BASIC METABOLIC PANEL, S/P Routine 03/20/2023 10:05 AM [employer] from Last 3 Months or Most Recently Relevant to Health Maintenance Results * Cysto w/botox (09/27/2023 2:30 PM CDT) Narrative Schuyler Livingston M.D. - 09/27/2023 2:30 PM CDT Schuyler Livingston M.D. ? 09/27/2023 ??2:50 PM Cystoscopy within injection of Intravesicular Botox PREOPERATIVE DIAGNOSIS Urge incontinence secondary to a hypertonic bladder. 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 PROCEDURE Cystoscopy with injection of intravesical botulinum toxin. (CPT code 20580) MEDICATION Botulinum toxin 100 units mixed with 10 mL of injectable normal saline. The patient received preoperative antibiotics and had a negative urine culture prior to the procedure. After informed consent, and after appropriately identifying the patient with 2 separate parameters, the patient was placed in a modified dorsal lithotomy position. The urethral area was prepped and draped in the usual sterile fashion, then 5 mL of 2% aqueous lidocaine was instilled into the urethra for several minutes. A Rader catheter was placed and the urine drained, then 30 mL of 1% lidocaine solution was instilled into the bladder and allowed to remain in place for 15 to 30 minutes. The lidocaine was drained and the Rader catheter removed. A second 5 mm aqueous lidocaine 2% gel was injected into the urethra. A rigid 22-Kazakh Olympus cystoscope with 30-degree lens was utilized for the procedure. Normal saline was used as an irrigant. A cystoscope needle ??was used for the procedure. The 100 units of botulinum toxin was injected in equally divided aliquots. ??Approximately 12 to 15 injection sites were utilized in a 3-row pattern, sparing the trigone and the ureteral orifices. After this was completed, the bladder was drained and the procedure concluded. The patient tolerated the procedure well. The patient normally tolerates her procedure well and will return in a few weeks to follow-up. She will complete her existing antibiotics. Electronically signed by: Schuyler Livingston M.D. 09/27/23 2:50 PM CDT Russ Irizarry APRNNShantePShante UROLOGY O RDERABLES * (ABNORMAL) Bacterial Culture, Aerobic + Susceptibility, Urine (09/14/2023 11:27 AM CDT) Urine Culture with mixed microbiota(A) 09/16/2023 9:43 AM CDT MKTO Urine Culture ESCHERICHIA COLI >100,000 cfu/mL (A) 09/16/2023 9:43 AM CDT MKTO Urine (Urine, Midstream) 09/14/2023 11:27 AM CDT 09/14/2023 2:23 PM CDT Comment:Specimen Source Site : Urine Narrative Organism Antibiotic Method Susceptibility Escherichia coli Ampicillin SUSCEPTIBILITY, WANDY (MCG/ML) 4 mcg/mL: Susceptible Escherichia coli Ampicillin + Sulbactam SUSCEPTI BILITY, WANDY (MCG/ML) <=2 mcg/mL: Susceptible Escherichia coli Piperacillin + Tazobactam SUSCE PTIBILITY, WANDY (MCG/ML) <=4 mcg/mL: Susceptible Escherichia coli Cefazolin SUSCEPTIBILITY, WANDY (MCG/ML) <=4 mcg/mL: Susceptible Comment: The interpretation applies to uncomplicated urinary tract infections only. It also applies to these oral cephalosporins: cefuroxime, cephalexin, and cefprozil. Escherichia coli Ceftazidime SUSCEPTIBILITY, WANDY (MCG/ML) <=1 mcg/mL: Susceptible Escherichia coli Ceftriaxone SUSCEPTIBILITY, WANDY (MCG/ML) <=1 mcg/mL: Susceptible Escherichia coli Cefepime SUSCEPTIBILITY, WANDY (MCG/ML) <=1 mcg/mL: Susceptible Escherichia coli Aztreonam SUSCEPTIBILITY, WANDY (MCG/ML) <=1 mcg/mL: Susceptible Escherichia coli Ertapenem SUSCEPTIBILITY, WANDY (MCG/ML) <=0.5 mcg/mL: Susceptible Escherichia coli Meropenem SUSCEPTIBILITY, WANDY (MCG/ML) <=0.25 mcg/mL: Susceptible Escherichia coli Gentamicin SUSCEPTIBILITY, WANDY (MCG/ML) <=1 mcg/mL: Susceptible Escherichia coli Tobramycin SUSCEPTIBILITY, WANDY (MCG/ML) <=1 mcg/mL: Susceptible Escherichia coli Levofloxacin SUSCEPTIBILITY, WANDY (MCG/ML) <=0.12 mcg/mL: Susceptible Escherichia coli Nitrofurantoin SUSCEPTIBILITY, WANDY (MCG/ML) 32 mcg/mL: Susceptible Escherichia coli Trimethoprim + Sulfamethoxazole SUSCEPTIBILITY, WANDY (MCG/ML) <=20 mcg/mL: Susceptible Nicolasa Fields APRN, C.N.P. LAB MICRO BIOLOGY - GENERAL ORDERABLES [facility] [address] [place] [address], [facility] MKTO [facility] in [place] [address] [place] [address] * (ABNORMAL) Urinalysis, with Microscopic: Urine, Midstream (09/14/2023 11:27 AM CDT) Source Urine, Urine, Midstream 09/14/2023 11:36 AM CDT FB60 Clarity Slightly Cloudy(A) Clear 09/14/2023 11:40 AM CDT FB60 Color Yellow 09/14/2023 11:40 AM CDT FB60 Comment: ----REFERENCE VALUE---- Colorless Yellow Ester Blood Negative Negative 09/14/2023 11:40 AM CDT FB60 Nitrite Positive(A) Negative 09/14/2023 11:40 AM CDT FB60 Leukocyte Esterase Small(A) Negative 09/14/2023 11:40 AM CDT FB60 Protein Negative mg/dL 09/14/2023 11:40 AM CDT FB60 Comment: ----REFERENCE VALUE---- Negative Trace Glucose Negative Negative mg/dL 09/14/2023 11:40 AM CDT FB60 Ketones, QI(U) Negative Negative mg/dL 09/14/2023 11:40 AM CDT FB60 Bilirubin Negative Negative 09/14/2023 11:40 AM CDT FB60 pH 7.0 5.0 - 8.0 09/14/2023 11:40 AM CDT FB60 Specific [place] 1.015 1.001 - 1.035 09/14/2023 11:40 AM CDT FB60 Urobilinogen 1.0 0.2 - 1.0 mg/dL 09/14/2023 11:40 AM CDT FB60 White Blood Cells 4-10 /hpf 09/14/2023 12:07 PM CDT FB60 Comment: ----REFERENCE VALUE---- Males: 0-3 Females: 0-10 Unknown: 0-10 Red Blood Cells Occ-2 0 - 2 /hpf 12:07 PM CDT FB60 Squamous Cells 4-10 /hpf 09/14/2023 12:07 PM CDT FB60 Bacteria Present(A) None Seen 09/14/2023 12:07 PM CDT FB60 Urine (Urine, Midstream) 09/14/2023 11:27 AM CDT 09/14/2023 11:36 AM CDT Russ Irizarry APRNNGabriela LAB URINE ORDERABLES Performing Organization Address City/State/[facility] Co de Phone Number [facility] [address] [place] [address], [facility] FB60 [facility] in [place] [address] [place] [address] * BI Breast Diagnostic Bilateral with Tomosynthesis (03/29/2023 10:56 AM [employer]) Anatomical Region Laterality Modality Breast, Breast Imaging RST L OS, Breast Imaging ARZ LOS, Breast Imaging FLA LOS Bilateral Mammography 03/29/2023 11:0 6 AM [employer] Impressions 03/29/2023 11:18 AM [employer] No mammographic findings of malignancy. RECOMMENDATION: ??Annual Screening Mammogram ASSESSMENT: ??BI-RADS: 2: Benign. Narrative 03/29/2023 11:18 AM [employer] EXAM: ??BI BREAST DIAGNOSTIC BILATERAL WITH TOMOSYNTHESIS INDICATION: ??Lumpectomy followup COMPARISON: ??Prior exam(s) were available and reviewed for comparison. DENSITY: ??b. There are scattered areas of fibroglandular density. FINDINGS: ??Stable postsurgical change can be seen in the upper right breast. Nothing for malignancy in either breast. Procedure Note Cristy Gilmore M.B., Ch.B. - 03/29/2023 EXAM: BI BREAST DIAGNOSTIC BILATERAL WITH TOMOSYNTHESIS INDICATION: Lumpectomy followup COMPARISON: Prior exam(s) were available and reviewed for comparison. DENSITY: b. There are scattered areas of fibroglandular density. FINDINGS: Stable postsurgical change can be seen in the upper rightbreast. Nothing for malignancy in either breast. IMPRESSION: No mammographic findings of malignancy. RECOMMENDATION: Annual Screening Mammogram ASSESSMENT: BI-RADS: 2: Benign. Carol Brambila APRN, C.N.P., M.S.N. 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
--- OUTSIDE RECORDS SUMMARY | 2023-10-23 09:54 | XMS_ITS | Referral Summary ---
Author Organization [facility] Address [address] [place] [id number] Care Team Providers Care Sld Teacher Name Role Phone Elsewhere, Pcp Primary Care Provider Unavailabl e Source Comments Patient records contain information from all sites at [facility]. For routine questions regarding patient records, call [phone] during business hours, M-F 8:00 AM - 5:00 PM Central Time. Record requests for emergency care only can be directed to [phone] at any time.[facility] Encounters Date Type Department Care Team Description 10/08/2023 2:30 PM CDT Office Visit Department of Urology in [place] [address] [place] [address] Nicolasa Fields APRN, C.N.P. Urinary Urge Incontinence (Primary Dx) 09/27/2023 2:30 PM CDT Procedure visit Department of Urology in [place], [place] [address] [phone] Schuyler Livingston M.D. Hypertonic Bladder (Primary Dx); Urinary Urge Incontinence 09/18/2023 Orders Only Department of Urology in [place], [place] [address] [phone] Nicolasa Fields APRN, C.N.P. 09/14/2023 11:20 AM CDT - 09/14/2023 11:59 PM CDT Hospital Encounter Department of Laboratory Medicine in [place], [place] [address] [facility] [address] Nicolasa Fields APRN, C.N.P. Urinary Urge Incontinence Discharge Disposition: Home or Self Care from Last 3 Months Allergies Active Allergy Reactions Criticality Noted Date [...] IA (cT1c, cN0, cM0, G1, ER: Positive, MI: Positive, HER2: Negative) right breast cancer. She continues to follow up every 6 months in the breast Clinic at the [facility] in [place]. 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 on 02/04/2018 Overview: Added automatically from request for surgery [id number] Cancer Colon Personal History 08/15/2017 Cancer Endometrium [...] 08/15/2017 Malignant Neoplasm Of Rectum 05/31/2004 08/15/2017 Immunizations Name Administration Dates Next Due H1N1 [...] (65 year s or older) (PF) 01/01/2019,01/21/2018,01/26/2014 Social History Tobacco Use Types Packs/Day Years Used Date Smoking Tobacco: Former Cigarettes 0 12/23/1967 - 06/22/1975 Smokeless Tobacco: Never Tobacco Cessation:Counseling Given: Not Answered Comments:Only a social smoker when I smoked. Maybe smoked a pack a week. Alcohol Use Standard Drinks/Week Comments Yes 1 (1 standard drink = 0.6 oz pur e alcohol) Rarely drink. [facility] Utilities Answer Date Recorded In the [...] often do you attend chur ch or oriental orthodox services? 1 to 4 times per year 09/04/2022 Do you belong to any clubs o r organizations such as advent groups, unions, fraternal or athletic groups, or [...] Answer Date Recorded PHQ-2 Score 0 11/25/2019 [facility] - Occupational Stress Questionnaire Answer Date Recorded [...] Master's degree (e.g., MA, MS, Enrique, MEd, INSPECTOR [employer]OL, ALLYN) 01/09/2019 Sex and Gender Information Value Date Recorded Sex Assigned at Female 09/19/2017 7:29 PM CDT Gender Identity Female 09/19/2017 7:29 PM CDT Sexual Orientation Straight 09/19/2017 7: 29 PM CDT Last Filed Vital Signs Vital Sign Reading Time Taken Comments Blood Pressure 147/84 03/29/2023 3:04 PM WHEAT SHIPPER Pulse 83 03/29/2023 3:04 PM WHEAT SHIPPER Temperature 37 ??C (98.6 ??F) 12/06/2020 1:49 PM CDT Respiratory Rate 20 11/25/2019 12:44 PM CDT Oxygen Saturation 95% 12/06/2020 1:49 PM CDT Inhaled Oxygen Concentration - - Weight 131 kg (289 lb 11 oz) 03/29/2023 3:04 PM WHEAT SHIPPER Height 168.5 cm (5' 6.34) 03/29/2023 3:04 PM CS T Body Mass Index 46.28 03/29/2023 3:04 PM WHEAT SHIPPER Plan of Treatment Not on file Medical Devices Implanted Type Area Retail Planner Device Identifier Shelf Expiration Date Model / Serial / Lot Clp Hrzn Ti 6 Clp Md Dank - [id number] Implanted:Qty: 1 on 12/31/2017 by Monica Contreras M.D. at [facility] Hardware e.g. pins/screw s/rods [employer] [id number] / / Clp Hrzn Ti 6 Clp Red - [id number] Implanted:Qty: 1 on 12/31/2017 by Monica Contreras M.D. at [facility] Hardware e.g. pins/screw s/rods Weck (Div of [employer]) [id number] 07/21/2022 1201 / / [id number] Gabo Ramirez Sz 4.0 - [place] [id number] Implanted:Qty: 1 on 04/12/2010 Knee Implant Other/Legacy - See Implant Description [employer] Description:Device Manufactu rer - [employer]. Body Location - Other. Right. Device Status Text - [id number] [id number]. Sigma Post Stab.W Lug Fem Sz 4n Rt - [place] [id number] Implanted:Qty: 1 on 04/12/2010 Knee Implant Other/Legacy - See Implant Description [employer] Description:Device Manufactu rer - [employer]. Body Location - Other. Right. Device Status Text - KNEE [id number]. J J Tib Insert Sigma 4x12.5 - Wright [id number] Implanted:Qty: 1 on 04/12/2010 Knee Implant Other/Legacy - See Implant Description [employer] Description:Device Manufactu rer - [employer]. Body Location - Other. Right. Device Status Text - [id number] [id number]. J J Sig Patella Oval 38 - [place] [id number] Implanted:Qty: 1 on 04/12/2010 Knee Implant Other/Legacy - See Implant Description [employer] Description:Device Manufactu rer - [employer]. Body Location - Other. Right. Device Status Text - KNEE [id number]. Patch Dual Mesh 1mm 20.0 X 30 - Wright [id number] Implanted:Qty: 1 on 01/13/2009 Mesh or Patch Other/Legacy - See Implant Description [place] Description:Device Manufactu rer - [employer] [place] [employer] Body Location - ?. Not Applicable. Device Status Text - [id number]. Cement Bone Large - [place] [id number] Implanted:Qty: 1 on 04/12/2010 Misc Other [place] Description:Device Manufactu rer - [place] [employer].. Device Status Text - [id number]. Cement Bone Small - Wright [id number] Implanted:Qty: 1 on 04/12/2010 Misc Other [place] Description:Device Manufactu rer - [place] [employer].. Device Status Text - MISCOTHER-2841. Procedures [...] inpatients and all outpatients) 03/29/2023 10:56 AM WHEAT SHIPPER Screening Mammogram Breast Cancer EXTI LIPID PANEL W REFLEX MEASURED LDL Routine 03/20/2023 10:05 AM WHEAT SHIPPER EXTI BASIC METABOLIC PANEL, S/P Routine 03/20/2023 10:05 AM WHEAT SHIPPER from Last 3 Months or Most Recently [...] injection of intravesical botulinum toxin. (CPT code 23914) MEDICATION Botulinum toxin 100 units mixed with [...] was injected into the urethra. A rigid 22-Swazi Olympus cystoscope with 30-degree lens was utilized [...] Schuyler Livingston M.D. 09/27/23 2:50 PM CDT Nicolasa Fields APRN, C.N.P. UROLOGY O RDERABLES * (ABNORMAL) Bacterial Culture, [...] C.N.P. LAB MICRO BIOLOGY - GENERAL ORDERABLES [facility] [address] [place] [address], [facility] [place] [address] [place] [address] * (ABNORMAL) Urinalysis, with Microscopic: Urine, Midstream [...] 8.0 09/14/2023 11:40 AM CDT FB60 Specific [place] 1.015 1.001 - 1.035 09/14/2023 11:40 AM [...] 11:27 AM CDT 09/14/2023 11:36 AM CDT Nicolasa Fields APRN, C.N.P. LAB URINE ORDERABLES Performing Organization Address City/State/[facility] Co de Phone Number [facility] [address] [place] [address], [facility] FB60 [facility] [place] [address] [place] [address] * BI Breast Diagnostic Bilateral with Tomosynthesis (03/29/2023 10:56 AM WHEAT SHIPPER) Anatomical Region Laterality Modality Breast, Breast Imaging RST L OS, Breast Imaging ARZ LOS, Breast Imaging FLA LOS Bilateral Mammography 03/29/2023 11:0 6 AM WHEAT SHIPPER Impressions 03/29/2023 11:18 AM WHEAT SHIPPER No mammographic findings of malignancy. RECOMMENDATION: ??Annual Screening Mammogram ASSESSMENT: ??BI-RADS: 2: Benign. Narrative 03/29/2023 11:18 AM WHEAT SHIPPER EXAM: ??BI BREAST DIAGNOSTIC BILATERAL WITH TOMOSYNTHESIS [...] Advance Directives For more information, please contact: [phone] * Full Code (Latest Code Status on File) Date Activated Date Inactivated Comments 12/31/2017 8:57 AM 12/31/2017 7:23 PM Question Answer Comments Full Code: Not Discussed Due to: Not medically appropriate Care Teams Sld Teacher Relationship Specialty Start Date End Date Elsewhere, Pcp PCP - General Internal Medicine 01/04/23
--- OUTSIDE RECORDS SUMMARY | 2023-10-23 09:54 | XMS_ITS | Clinical Summary ---
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 0 0 Active Cinnamon Bark (CINNAMON) 500 mg capsule Take 2 capsules by mouth once daily. 0 1 Active medical supply, miscellaneous (GRADUATED COMPRESSION STOCKINGS)Indicatio ns:Lymphedema For personal use. Length: calf Strength: 30-40 mmHg. Measurements pending. 4 Packet 2 8 Active docusate (COLACE) 100 mg capsule Take 2 mg by mouth. 4 Active cholecalciferol (VITAMIN D) 1,000 unit capsule Take 1 capsule by mouth once daily. 1 capsule 9 Active trospium (SANCTURA) 20 mg tablet Take 20 mg by mouth. 0 Active amoxicillin (AMOXIL) 500 mg capsuleIndications: History of joint replacement, unspecified joint TAKE FOUR CAPSULES BY MOUTH 1 HOUR BEFORE DENTAL APPOINTMENT 24 capsule. 2 Active Blood Pressure Monitor KitIndications:Hype rtension, unspecified type Frequency of testin times per week 1 Each 2 Active traMADoL (ULTRAM) 50 mg tabletIndications:C hronic right-sided low back pain without sciatica,Facet arthritis of lumbar region Take 0.5-1 Tablets (25-50 mg) by mouth 3 times daily if needed for Pain. Only for severe pain. 14 Tablet 3 Active potassium chloride (KLOR-CON M10) 10 mEq extended-release tablet (part/cryst)Indicat ions:Bilateral lower extremity edema Take 1 Tablet (10 mEq) by mouth once daily with a meal. 90 Tablet 3 3 Active losartan (COZAAR) 100 mg tabletIndications:H ypertension, unspecified type Take 1 Tablet (100 mg) by mouth once daily. 90 Tablet 3 3 Active furosemide (LASIX) 20 mg tabletIndications:B ilateral lower extremity edema Take 1 Tablet (20 mg) by mouth every morning. 90 Tablet 3 3 Active atorvastatin (LIPITOR) 20 mg tabletIndications:H yperlipidemia, unspecified hyperlipidemia type Take 1 Tablet (20 mg) by mouth once daily with evening meal. 90 Tablet 3 3 Active metFORMIN (GLUCOPHAGE XR) 500 mg Extended-Release tabletIndications:P rediabetes Take 1 Tablet (500 mg) by mouth once daily with evening meal. 90 Tablet 1 3 Active piroxicam (FELDENE) 20 mg capsuleIndications: Mastodynia TAKE 1 CAPSULE(20 MG) BY MOUTH EVERY DAY WITH A MEAL 90 Capsule 2 3 Active CPAPIndications:BELINDA (obstructive sleep apnea) CPAP machine for home use at pressure: 5-16 cmw , Heated humidifier x 1 q 5 yr, Humidifier chamber x 1 q 6 mo, Full face mask x1 q 3mos, with cushion x 1 q mo, Heated tubing x 1 q 3 mo, Headgear x 1 q 6 mo, Filters: Disposable x 2 q mo non-disposable filters x1 q 6mo, Length of Need: 99 months, Frequency of use: Daily 1 Each 3 Active tirzepatide (MOUNJARO) 2.5 mg/0.5 mL penIndications:Morb id obesity (HC) Inject 0.5 mL (2.5 mg) subcutaneous once weekly. 2 mL 5 4 Active tirzepatide (MOUNJARO) 7.5 mg/0.5 mL penIndications:Morb id obesity (HC) Inject 0.5 mL (7.5 mg) subcutaneous once weekly. 2 mL 4 Active celecoxib (CELEBREX) 100 mg capsuleIndications: Chronic right sacroiliac joint pain,Chronic right-sided low back pain without sciatica Take 1 Capsule (100 mg) by mouth two times daily with meals. 30 Capsule 4 Active pen tirzepatide (MOUNJARO) 10 mg/0.5 mL penIndications:Morb id obesity (HC) Inject 0.5 mL (10 mg) subcutaneous once weekly. 2 mL 4 Active tirzepatide (MOUNJARO) 12.5 mg/0.5 mL penIndications:Morb id obesity (HC) Inject 0.5 mL (12.5 mg) subcutaneous once weekly. 2 mL 4 Active tirzepatide (MOUNJARO) 15 mg/0.5 mL penIndications:Morb id obesity (HC) Inject 0.5 mL (15 mg) subcutaneous once weekly. 6 mL 3 4 Active tirzepatide (MOUNJARO) 5 mg/0.5 mL penIndications:Morb id obesity (HC) Inject 0.5 mL (5 mg) subcutaneous once weekly for 28 days. 2 mL 4 09/26/19 24 tirzepatide (MOUNJARO) 7.5 mg/0.5 mL penIndications:Morb id obesity (HC) Inject 0.5 mL (7.5 mg) subcutaneous once weekly for 28 days. 2 mL 4 09/26/19 24 Discontinue d(Reorder (E-cancel not sent)) pen tirzepatide (MOUNJARO) 10 mg/0.5 mL penIndications:Morb id obesity (HC) Inject 0.5 mL (10 mg) subcutaneous once weekly for 28 days. 2 mL 4 10/16/19 24 Discontinue d(*Availabi lity/Formul elizabeth change/Cost of medication) tirzepatide (MOUNJARO) 12.5 mg/0.5 mL penIndications:Morb id obesity (HC) Inject 0.5 mL (12.5 mg) subcutaneous once weekly for 28 days. 2 mL 4 10/16/19 24 Discontinue d(*Availabi lity/Formul elizabeth change/Cost of medication) tirzepatide (MOUNJARO) 15 mg/0.5 mL penIndications:Morb id obesity (HC) Inject 0.5 mL (15 mg) subcutaneous once weekly. 6 mL 3 4 10/16/19 24 Discontinue d(*Availabi lity/Formul elizabeth change/Cost of medication) Active Problems Problem Noted Date Diagnosed Date Bilateral lower extremity edema 10/04/2022 Venous insufficiency 10/04/2022 Chronic right-sided low back pain without sciati ca 06/22/2022 Overview: 05/02/2022 fluoroscopic guided right sacroiliac joint injection???LIdocaine was mildly better, ?? 50% better pain relief. June 20 2022: Right L4-5 and L5-S1 facet joint injections under fluoroscopic guidance. Jan 2023: Right sacroiliac joint injection under fluoro. Primary cancer of right breast 12/18/2017 Essential hypertension 12/15/2016 Lymphedema 02/21/2013 Endometrial cancer 02/21/2013 Mixed hyperlipidemia 02/21/2013 Morbid obesity 01/09/2012 Unspecified urinary incontinence 01/09/2012 Impaired fasting glucose 12/19/2011 Personal history of rectal cancer 03/09/2009 Overview: Colonoscopy 02/2009 normal repeat in 3 years Colonoscopy 03/2012 normal repeat in 5 years Colonoscopy 07/2015 diverticuli repeat in 5 years Colonoscopy 01/2021 2 TA, repeat in 5 years Resolved Problems Problem Noted Date Diagnosed Date Resolved Date Varicose veins 02/21/2013 03/27/2023 PE (pulmonary embolism) 02/21/201301/22 DVT (deep vein thrombosis) in 02/21/2013 02/19/2020 Mastodynia 01/09/2012 02/19/2020 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 (current) use of anticoagulants 04/15/2010 01/09/2012 Overview: INR Goal Range: 2.0 - 3.0 DVT (deep venous thrombosis) 04/29/2008 01/09/2012 Overview: Updated by system to replace inactive record Other pulmonary embolism and infarction 04/29/2008 01/09/2012 Other lymphedema 04/29/2008 02/17/2019 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 03/01/2021 FPC (current) use of anticoagulants 04/29/2008 01/09/2012 Encounters Date Type Department Care Team Description 10/12/2023 Refill [facility] [address] [place] [address] Maurizio Moreno MD Refill Request (Mounjaro) 10/09/2023 12:35 PM CDT Office Visit [facility] [address] [place] [address] Tristan Khan MD Musculoskeletal Problem (Follow-up Low Back Pain - Chronic RIGHT SI pain) 10/09/2023 Travel 07/24/2023 11:20 AM CDT Office Visit [facility] [address] [place] [address] Maurizio Moreno MD Concerns (Increase in SOB/Discuss weight loss) 07/24/2023 Travel from Last 3 Months Immunizations Name Administration Dates Next Due AMB INFLUENZA IIV3 (AGE 65+ YRS) PF (Flu Clinic Only) 02/02/2017 AMB Influenza, IIV3 (Age >=3 years)(Flu Clinic Only) 01/22/2013 Amb Influenza, Inact (High-d ose Quadrivalent) (Flu Clinic Only) 01/09/2020 Amb Influenza, Inact (High-d ose) (Flu Clinic Only) 02/05/2016,02/11/2015 COVID-19 Vaccine Spikevax (M oderna 50mcg/0.5mL) 12YO+ 9213-6575 Formula PF 07/24/2023 COVID-19 vaccine (Moderna 100mcg/0.5mL) PF, MDV 07/10/2020,06/10/2020 COVID-19 vaccine (Moderna 50mcg/0.5mL) 12YO+ BIVALENT PF, MDV 08/24/2022 COVID-19 vaccine (Activ [employer] 30mcg/0.3mL) 12YO+ BIVALENT PF, MDV 01/01/2022 COVID-19 vaccine ([employer] 30mcg/0.3mL) 12YO+ HERMINIA-SUCROSE PF, MDV 08/13/2021 COVID-19 vaccine Comirnaty (Activ [employer] 30mcg/0.3mL) 12YO+ [id number] Formula PF, SDV, PFS 01/23/2023 Hepatitis A (Adult) 12/15/2016,06/03/2000 Hepatitis B (Adult) 12/30/2013,07/24/2013,201312/28/2013 Inactivated Polio Vaccine 05/24/2000 Influenza A (H1N1), Inactiva lex (Age >=3 Years) 04/06/2009 Influenza Virus, Unspecified 01/22/2011 Influenza, High-dose Inactivated 01/21/2018,09/2013 Influenza, IIV3 (Age 6-35 mos) 01/14/2009,2007 Influenza, IIV3 (Age >=3 years) 01/09/20 12,01/22/2011,03/20/2007,02/21,02/18/2004,02/19/2003 Influenza, Inactivated AIIV4 (Age 65+ Years) Preserv Free 01/23/2023,01/01/2022,01/27/2021 Influenza, Inactivated IIV3 (Age 65+ Years) Preserv Free 01/01/2019 Pneumococcal Conj 20-valent (Prevnar 20) 10/04/2022 Pneumococcal Poly,23-Valent (Pneumovax) 07/29/2015 Pneumococcal conj 13-Valent (Prevnar 13) 03/06/2014 Pneumococcal, Unspecified 09/26/2005 RSV, Bivalent Vaccine Recons tituted (Abrysvo 120MCG/0.5mL) 01/23/2023 Td, Preservative Free (age > = 7 Years) 10/27/2016 Tdap 09/27/2006 Typhoid (injectable) 06/18/2013 Typhoid, Unspecified 05/24/2000 Zoster (Shingrix-RZV, recombinant) 09/23/2018,,05/24/2018 Zoster (Zostavax-ZVL, live) 05/05/2009 Family History Medical History Relation Name Comments Cancer Father lung fatal at 6 9. Cancer-breast Neg. 1 Heart Disease Neg. 2 Diabetes Neg. 3 Anesthesia Problem No Family History Relation Name Status Comments Father Mother Alive Neg. 1 Neg. 2 Neg. 3 Social History Tobacco Use Types Packs/Day Years Used Date Smoking Tobacco: Never Smokeless Tobacco: Never Tobacco Cessation:Counseling Given: No Alcohol Use Standard Drinks/Week Comments Yes 0 (1 standard drink = 0.6 oz pur e alcohol) rarely PHQ-2 Answer Date Recorded PHQ-2 TOTAL SCORE 0 03/27/2023 Social Connections Answer Date Recorded Frequency of Communication with Friends and Fami ly 0 03/27/2023 Financial Resource Strain Answer Date R ecorded Difficulty of Paying Living Expenses 3 03/27/2023 Difficulty of Paying Living Expenses Not on file 03/27/2023 Food Insecurity Answer Date Recorded Worried About Running Out of Food in the Last Ye ar 1 03/27/2023 Transportation Needs Answer Date Record ed Lack of Transportation (Medical) 1 03/27/2023 Housing Stability Answer Date Recorded Unable to Pay for Housing in the Last Year 1 03/27/2023 Sex and Gender Information Value Date Recorded Sex Assigned at Not on file Gender Identity Not on file Sexual Orientation Not on file Obstetrics History Last Filed Vital Signs Vital Sign Reading Time Taken Comments Blood Pressure 154/87 10/09/2023 12:43 PM CDT Pulse 70 10/09/2023 12:43 PM CDT Temperature 36.9 ??C (98.4 ??F) 11/29/2022 2:16 PM CD T Respiratory Rate 18 11/29/2022 2:16 PM CDT Oxygen Saturation 97% 10/09/2023 12: 43 PM CDT Inhaled Oxygen Concentration - - Weight 130.3 kg (287 lb 3.2 oz) 024 11:26 AM CDT Height 168.9 cm (5' 6.5) 03/27/2023 10 :28 AM DIRECTOR RADIO NEWS Body Mass Index 45.67 03/27/2023 10:28 AM DIRECTOR RADIO NEWS Plan of Treatment Upcoming Encounters Date Type Department Care Team (Late st Contact Info) Description 10/23/2023 10:20 AM CDT Office Visit [facility] [address] [phone] Chandra Gimenez MD [address] [place] [address] Arrived Health Maintenance Due Date Last Done Comments Mammogram for age 45-75 09/20/2023 09/20/19 23 (Verified in Care Everywhere or Patient Record), 12/06/2017, 11/27/2017, Additional history exists Influenza for age 65+ 12/23/2023 01/23/2023 , 01/01/2022, 01/27/2021, Additional history exists BMI (ht and wt on same day) for age 18+ 03/27/2024 03/27/2023, 03/09/2022, 04/21/2020, Additional history exists Depression screening for age 12+ 03/27/2024 03/27/2023, 03/09/2022, 03/01/2021, Additional history exists Medicare Wellness for age 65+ 03/27/2024, 03/09/2022, 03/01/2021, Additional history exists Colonoscopy through age 75 02/08/202602/08, 02/08/2021, 02/08/2021, Additional history exists Tetanus booster 10/27/2026 10/27/2016, 09/27/2006 Lipids for age 45-75 03/20/2028 03/20/2023, 03/03/2022, 02/18/2021, Additional history exists Tdap Completed 09/27/2006 DEXA/DXA scan for age 65+ Completed 03/12/2014 Hepatitis C screening for ag e 18-79 Completed 07/13/2015 Zoster (shingles) series for age 50+ Completed 09/23/2018, 07/22/2018, 05/24/2018, Additional history exists Pneumococcal series for age 65+ Completed 10/04/2022, 07/29/2015, 03/06/2014, Additional history exists COVID-19 vaccine series Completed 07/24/19 24, 01/23/2023, 08/24/2022, Additional history exists Procedures Procedure Name Priority Date/Time Associated Diagnosis Comments CBC WITH AUTO DIFFERENTIAL Routine 07/24/2023 12:25 PM CDT Fatigue, unspecified type TSH WITH REFLEX Routine 07/24/2023 12:25 PM CDT Fatigue, unspecified type CBC WITH AUTO DIFFERENTIAL Routine 07/24/2023 12:25 PM CDT Fatigue, unspecified type HEMOGLOBIN A1C SCREENING Routine 07/24/2023 12:25 PM CDT Prediabetes LIPID PANEL W REFLEX MEASURED LDL Routine 03/20/2023 10:05 AM DIRECTOR RADIO NEWS Hyperlipidemia, unspecified hyperlipidemia type COLONOSCOPY SCREENING Routine 02/08/2021 8:39 AM CDT Polyp of colon, unspecified part of colon, unspecified type XR MAMMO UNI ADDL VIEWS RIGHT Routine 12/06/2017 2:08 PM CDT Abnormal mammogram ANTI HCV Routine 07/13/2015 11:05 AM CDT Need for hepatitis C screening test XR DXA BONE DENSITY 2 SITES AXIAL Routine 03/12/2014 11:18 AM DIRECTOR RADIO NEWS Osteoporosis from Last 3 Months or Most Recently Relevant to Health Maintenance Results * (ABNORMAL) CBC WITH AUTO DIFFERENTIAL (07/24/2023 12:25 PM CDT) Pathologist [facility] WHITE BLOOD COUNT 7.3 4.5 - 11.0 thou/cu mm 07/24/2023 12:29 PM CDT [facility] RED BLOOD COUNT 4.98 4.00 - 5.20 mil/cu mm 07/24/2023 12:29 PM CDT [facility] HEMOGLOBIN 14.9 12.0 - 16.0 g/dL 07/24/2023 12:29 PM CDT [facility] HEMATOCRIT 44.3 33.0 - 51.0 % 07/24/2023 12:29 PM CDT [facility] MCV 89 80 - 100 fL 07/24/2023 12:29 PM CDT [facility] MCH 29.9 26.0 - 34.0 pg 07/24/2023 12:29 PM CDT [facility] MCHC 33.6 32.0 - 36.0 g/dL 07/24/2023 12:29 PM CDT [facility] RDW 15.4 11.5 - 15.5 % 07/24/2023 12:29 PM CDT [facility] PLATELET COUNT 195 140 - 440 thou/cu mm 07/24/2023 12:29 PM CDT [facility] MPV 11.6(H) 6.5 - 11.0 fL 07/24/2023 12:29 PM CDT [facility] % NEUT 70.9 % 07/24/2023 12:29 PM CDT [facility] % LYMPH 17.6 % 07/24/2023 12:29 PM CDT [facility] % MONO 9.0 % 07/24/2023 12:29 PM CDT [facility] % EOS 2.1 % 07/24/2023 12:29 PM CDT [facility] % BASO 0.4 % 07/24/2023 12:29 PM CDT [facility] ABSOLUTE NEUTROPHILS 5.2 1.7 - 7.0 thou/cu mm 07/24/2023 12:29 PM CDT [facility] ABSOLUTE LYMPHOCYTES 1.3 0.9 - 2.9 thou/cu mm 07/24/2023 12:29 PM CDT [facility] ABSOLUTE MONOCYTES 0.7 <0.9 thou/cu mm 07/24/2023 12:29 PM CDT [facility] ABSOLUTE EOSINOPHILS 0.2 <0.5 thou/cu mm 07/24/2023 12:29 PM CDT [facility] ABSOLUTE BASOPHILS 0.0 <0.3 thou/cu mm 07/24/2023 12:29 PM CDT [facility] Blood BLOOD SPECIMEN / Unknown Venipuncture / Unknown 07/24/2023 12:25 PM CDT 07/24/2023 12:25 PM CDT Maurizio Moreno MD HEMATOLOGY [facility] [address] [place] [address], [place] [phone] * HEMOGLOBIN A1C SCREENING (07/24/2023 12:25 PM CDT) HEMOGLOBIN A1C SCREENING 6.3 <=6.4 % 07/25/2023 6:49 AM CDT [facility] Blood BLOOD SPECIMEN / Unknown Venipuncture / Unknown 07/24/2023 12:25 PM CDT 07/24/2023 12:25 PM CDT Narrative [facility] - 07/25/2023 6:49 AM CDT ? (<5.7%) ?Normal ? (5.7% to 6.4%) ? Indicates prediabetes ? (>=6.5%) ? Confirms diabetes Falsely low levels may be seen with: Recent Transfusion, Recent Significant Blood Loss, Hemolytic Diseases, or Falsely elevated levels may be seen with: Untreated Anemias, Splenectomy Maurizio Moreno MD CHEMISTRY [facility] [address] [place] [address], * TSH WITH REFLEX (07/24/2023 12:25 PM CDT) Pathologist [facility] TSH 1.70 0.27 - 4.20 uIU/mL 07/24/2023 9:37 PM CDT [facility] Blood BLOOD SPECIMEN / Unknown Venipuncture / Unknown 07/24/2023 12:25 PM CDT 07/24/2023 12:25 PM CDT Narrative [facility] - 07/24/2023 9:37 PM CDT In Adults, TSH values between 5.00 and 10.00 uIU/ml do not necessarily indicate the presence of Hypothyroidism. Correlation with clinical findings such as presence of goiter and/or Thyroperoxidase (TPO) Antibody may be helpful. For more information please refer to LYSSA 2004; 291: 228-238. Maurizio Moreno MD CHEMISTRY Performing Organization Address City/[facility]/ZIP Co de Phone Number [facility] [address] [address], * (ABNORMAL) LIPID PANEL W REFLEX MEASURED LDL (03/20/2023 10:05 AM DIRECTOR RADIO NEWS) CHOLESTEROL,TOTAL 188 100 - 199 mg/dL 03/20/2023 4:27 PM DIRECTOR RADIO NEWS [facility] Comment: Cholesterol, Total Reference Ranges Desirable <200 mg/dL Borderline 200-239 mg/dL High >=240 mg/dL TRIGLYCERIDES 156(H) <150 mg/dL 03/20/2023 4:27 PM DIRECTOR RADIO NEWS [facility] HDL CHOLESTEROL 52 >40 mg/dL 4:27 PM DIRECTOR RADIO NEWS [facility] NON-HDL CHOLESTEROL 136 <145 mg/dl 03/20/2023 4:27 PM DIRECTOR RADIO NEWS [facility] CHOL/HDL RATIO 3.62 <4.50 03/20/2023 4:27 PM DIRECTOR RADIO NEWS [facility] LDL CHOLESTEROL 105 <=130 mg/dL 03/20/2023 4:27 PM DIRECTOR RADIO NEWS [facility] VLDL CHOLESTEROL 31(H) <=30 mg/dL 03/20/2023 4:27 PM DIRECTOR RADIO NEWS [facility] PROVIDER ORDERED STATUS RANDOM 03/20/2023 4:27 PM DIRECTOR RADIO NEWS [facility] Blood BLOOD SPECIMEN / Unknown Venipuncture / Unknown 03/20/2023 10:05 AM DIRECTOR RADIO NEWS 03/20/2023 10:08 AM DIRECTOR RADIO NEWS Maurizio Moreno MD CHEMISTRY Performing Organization Address City/[facility]/ZIP Co de Phone Number [facility] [address] [address], * COLONOSCOPY (02/08/2021 8:48 AM CDT) 02/08/2021 8:48 AM CDT Narrative Transcriptions Sheldon Love MD - 02/08/2021 10:06 AM CDT Patient Name: Melita Glaser Procedure Date: 02/08/2021 Gender: Female Date of : 1950 Admit Type: Outpatient Procedure: Colonoscopy Proceduralist: Sheldon Love MD , Ankita West (Nurse) Referring MD: Maurizio Moreno Indications/Pre-Op Diagnosis: High risk colon cancer surveillance:Personal history of colon cancer, Last colonoscopy: July 2015 Medications: Fentanyl 100 micrograms IV, Midazolam 4 mgIV, The level of sedation administered wasmoderate Procedure Description: The patient had risks, benefits and alternatives explained to andgave informed consent. The patient had a stable cardiopulmonary status and judged an adequate candidate for conscious sedation. The [id number] was passed through the anus and advanced tothe cecum, identified by appendiceal orifice and ileocecal valve. The colonoscopy was performed without difficulty. The patient toleratedthe procedure well. The quality of the bowel preparation was good. The ileocecal valve, appendiceal orifice, and rectum were photographed. Complications: No immediate complications. Estimated Blood Loss & Specimen: Estimated blood loss: none. Specimen collected - Yes and sent to Laboratory Findings: The perianal and digital rectal examinations were normal. Two sessile polyps were found in the ascending colon. The polyps were3 to 5 mm in size. These polyps were removed with a cold snare.Resection was complete, but the polyp tissue was only partially retrieved. There was evidence of a prior end-to-end colo-colonic anastomosis inthe rectum. This was patent and was characterized by healthy appearing mucosa. The exam was otherwise without abnormality on direct and retroflexion views. Impressions/Post-Op Diagnosis: - Two 3 to 5 mm polyps in the ascending colon, removed with a cold snare. Complete resection. Partial retrieval. - Patent end-to-end colo-colonic anastomosis, characterized byhealthy appearing mucosa. - The examination was otherwise normal on direct and retroflexionviews. Recommendation: - Patient has a contact number available for emergencies. The signsand symptoms of potential delayed complications were discussed with the patient. Return to normal activities tomorrow. Written discharge instructions were provided to the patient. - Resume previous diet. - Continue present medications. - Await pathology results. - Repeat colonoscopy in 5 years for surveillance. Moderate Sedation: Moderate (conscious) sedation was administered by the endoscopy nurse and supervised by the endoscopist. The following parameters were monitored: oxygen saturation, heart rate, respiratory rate, blood pressure, adequacy of pulmonary ventilation and reponse to care. Please refer to the patient's medical record flowsheets and nursing notes for moderate sedation details. Total physician intraservice time was 28 minutes. Sheldon Love MD 02/08/2021 10:06:48 AM This report has been signed electronically. Note Initiated On: 02/08/2021 8:48 AM Procedure Code(s): --- Professional --- 75274, Colonoscopy, flexible; with removalof tumor(s), polyp(s), or other lesion(s) bysnare technique Diagnosis Code(s): --- Professional --- Z85.038, Personal history of other malignant neoplasm of large intestine K63.5, Polyp of colon Z98.0, Intestinal bypass and anastomosisstatus CPT copyright 2020 [employer]. All rights reserved. The codes documented in this report are preliminary and upon certified medical coder reviewmay be revised to meet current compliance requirements. Scope In: 9:34:49 AM Scope Withdrawal Time 0 hours 12 minutes 23 seconds Scope Out: 9:59:26 AM Sheldon Love MD PROCEDURE ORD * XR MAMMO UNI ADDL VIEWS RIGHT (12/06/2017 2:08 PM CDT) Anatomical Region Laterality Modality BREASTS, Breast Right Mammograph y Impressions 12/06/2017 3:09 PM CDT ??BI-RADS Category 4: Suspicious RECOMMENDATION: ??Stereotactic biopsy. ?? NOTE: ??I discussed today's imaging findings with the patient. ??The biopsy will be scheduled through one of the care coordinators. ?? Clint Grande D.O. Diagnostic Radiologist [email or web address] ?? / Narrative 12/06/2017 3:09 PM CDT ADDITIONAL VIEWS RIGHT BREAST DIGITAL MAMMOGRAM, 12/06/2017 CLINICAL HISTORY: ??Recall for further evaluation of a focus of microcalcifications associated with a focal asymmetry in the RIGHT breast 12 o'clock position on screening mammogram 11/27/17. ?? TECHNIQUE: ??Magnification views of the RIGHT breast in the CC, MLO, and ML projections. BREAST COMPOSITION: ??Fatty. ?? FINDINGS: ??There is a focal oval asymmetry with associated punctate microcalcifications at the 12 o'clock position of the anterior to mid RIGHT breast. ?? Maurizio Moreno MD MAMMO * ANTI HCV (07/13/2015 11:05 AM CDT) HEPATITIS C ANTIBODY Non-Reacti ve Non-Reacti ve 07/13/2015 6:02 PM CDT [facility] [employer] [facility] Blood specimen (specimen) BLOOD SPECIMEN / Unknown Butterfly / Unknown 07/13/2015 11:05 AM CDT 07/13/2015 11:05 AM CDT Narrative [facility] - 07/13/2015 6:02 PM CDT Antibodies to HCV not detected; does not exclude the possibility of exposure to HCV. Maurizio Moreno MD SEND OUTS [facility] [address] [place] [address], [place] * XR DXA BONE DENSITY 2 SITES (03/12/2014 11:18 AM DIRECTOR RADIO NEWS) Anatomical Region Laterality Modality Spine, HIPS, HIPL, HIPR Other Narrative 03/23/2014 2:06 PM DIRECTOR RADIO NEWS Please see scanned document for results of this study. Procedure Note Shannan Cole, ANIVAL - 03/23/2014 Please see scanned document for results of this study. Maurizio Moreno MD DEXA from Last 3 Months or Most Recently Relevant to Health Maintenance Advance Directives Documents on File Type Date Recorded Patient Store Operations Associate Expl anation Healthcare Directive 03/12/2014 12:00 AM 15 Care Teams Mica Machine Operator Relationship Specialty Start Date End Date Maurizio Moreno MD [address] [place] [address] PCP - General 08/10/05
--- OUTSIDE RECORDS SUMMARY | 2023-10-23 09:55 | XMS_ITS | Encounter Summary ---
Author Organization [facility] Address [address] [place] [id number] Care Team Providers Care Microbiology Director Name Role Phone Elsewhere, Pcp Primary Care Provider Unavailabl e Encounter Details Date Type Department Care Team (Latest Contact Info) Description 09/14/2023 11:20 AM CDT - 09/14/2023 11:59 PM CDT Hospital Encounter Department of Laboratory Medicine in [place] [address] [place] [address] Nicolasa Fields, WET SUIT GLUER, C.N.P. [address] [phone] Urinary Urge Incontinence Discharge Disposition: Home or Self Care Social History Tobacco Use Types Packs/Day Years Used Date Smoking Tobacco: Former Cigarettes 0 12/23/1967 - 06/22/1975 Smokeless Tobacco: Never Comments:Only a social smoke r when I smoked. Maybe smoked a pack a week. Alcohol Use Standard Drinks/Week Comments Yes 1 (1 standard drink = 0.6 oz pur e alcohol) Rarely drink. Humiliation, Afraid, Rape, and Kick questionnair e [...] often do you attend chur ch or mandaen services? 1 to 4 times per year 09/04/2022 Do you belong to any clubs o r organizations such as congregational groups, unions, fraternal or athletic groups, or [...] Answer Date Recorded PHQ-2 Score 0 11/25/2019 [facility] [place] of Occupat ional Health - Occupational Stress [...] to strenuous exercise (like a brisk walk)? 0 days 09/04/2022 On average, how many minutes do you engage in exercise at this level? 0 min 09/04/2022 Hunger Vital Sign Answer Date Recorded Within the past 12 months, y ou worried that your food would run out before you got the money to buy more. Never true 09/19/19 23 Within the past 12 months, t he food you bought just didn't last and you didn't have money to get more. Never true 09/18/2022 PRAPARE - Transportation Answer Date Re corded In the past 12 months, has l ack of transportation kept you from medical appointments or from getting medications? No 08/22 In the past 12 months, has l ack of transportation kept you from meetings, work, or from getting things needed for daily living? No 09/18/2022 Nutrition Answer Date Recorded On average, how many serving s of fruits and vegetables do you eat per day (serving size is equal to 1 cup or approximately the size of a tennis ball)? 4-5 09/04/2022 Dental Answer Date Recorded Dental: Regular Dentist Yes 06/15/19 Employment Answer Date Recorded Employment status Retired 09/04/2022 Housing Stability Answer Date Recorded What is your living situation today? I have a [facility] place to live 09/18/2022 Education Answer Date Recorded What is the highest level of school you have completed or the highest degree you have received? Master's degree (e.g., MA, MS, Enrique, MEd, FOXING PAINTER, ALLYN) 01/09/2019 Sex and Gender Information Value Date Recorded Sex Assigned at Female 09/19/2017 7:29 PM CDT Gender Identity Female 09/19/2017 7:29 PM CDT Sexual Orientation Straight 09/19/2017 7: 29 PM CDT documented as of this encounter Medications at Time of Discharge Medication Sig Dispensed Refills Start Date End Date anastrozole (ARIMIDEX) 1 mg tabletIndications:Canc er Breast Personal History TAKE 1 TABLET(1 MG) BY MOUTH DAILY. SWALLOW WHOLE WITH A DRINK OF WATER 90 tablet 11/17/2022 atorvastatin (LIPITOR) 20 mg tablet Take 20 mg by mouth daily. 10/27/2016 cholecalciferol (VITAMIN D3) 1,000 Unit capsule Take 1 tablet by mouth daily. 02/25/2014 cinnamon bark 500 mg capsule Take 1,000 mg by mouth daily. 02/15/2011 DME Gradient compression garments & suppliesIndications:Ly mphedema DME Order Open Toe 4 Unspecified 02/16/2022 docusate sodium (COLACE) 100 mg capsule Take 100 mg by mouth as needed for constipation. 02/25/2014 furosemide (LASIX) 20 mg tablet Take 20 mg by mouth daily. 10/04/2022 losartan (COZAAR) 100 mg tablet 08/28/2022 losartan (COZAAR) 50 mg tablet Take 50 mg by mouth daily. 03/16/2023 metFORMIN XR (GLUCOPHAGE-XR) 500 mg 24 hr tablet Take 1 tablet by mouth daily. 05/14/2021 multivit-min/iron/foli c/lutein (CENTRUM SILVER WOMEN ORAL) Take 1 tablet by mouth daily. 10/04/2010 piroxicam (FELDENE) 20 mg capsule Take 1 capsule by mouth daily. 10/04/2010 potassium chloride (KLOR-CON M) 10 mEq ER tablet Take 10 mEq by mouth daily with breakfast. 10/04/2022 tirzepatide (MOUNJARO) 2.5 mg/0.5 mL pen injector injection Inject 2.5 mg under the skin over 168 hr. 08/29/2023 trospium (SANCTURA) 20 mg tablet TAKE 1 TABLET(20 MG) BY MOUTH TWICE DAILY BEFORE BREAKFAST AND DINNER 180 tablet 3 05/28/2023 documented as of this encounter Plan of Treatment Not on file documented as of this encounter Procedures Procedure Name Priority Date/Time Associated Diagnosis Comments BACTERIAL CULTURE, AEROBIC + SUSC, URINE Routine 09/14/2023 11:27 AM CDT Urinary Urge Incontinence URINALYSIS WITH MICROSCOPIC Routine 09/14/2023 11:27 AM CDT Urinary Urge Incontinence documented in this encounter Results * (ABNORMAL) Urinalysis, with Microscopic: Urine, Midstream [...] 8.0 09/14/2023 11:40 AM CDT FB60 Specific [place] 1.015 1.001 - 1.035 09/14/2023 11:40 AM [...] Nicolasa Fields APRN, C.N.P. LAB URINE ORDERABLES [facility] [address] [place] [address], [facility] FB60 [facility] [place] [address] [place] [address] * (ABNORMAL) Bacterial Culture, Aerobic + Susceptibility, [...] Sulfamethoxazole SUSCEPTIBILITY, WANDY (MCG/ML) <=20 mcg/mL: Susceptible Russ Irizarry APRNNGabriela LAB MICRO BIOLOGY - GENERAL ORDERABLES Performing Organization Address City/State/[facility] Co de Phone Number [facility] [address] [place] [address], [facility] MKTO [facility] [place] [address] documented in this encounter Visit Diagnoses Diagnosis Urinary Urge Incontinence documented in this encounter Care Teams Microbiology Director Relationship Specialty Start Date End Date Elsewhere, Pcp PCP - General Internal Medicine 01/04/23 documented as of this encounter
--- OUTSIDE RECORDS SUMMARY | 2023-10-23 09:55 | XMS_ITS | Encounter Summary ---
Author Organization [facility] Address [address] [place] [address] Care Team Providers Care Hat Liner Name Role Phone Elsewhere, Pcp Primary Care Provider Unavailabl e Encounter Details Date Type Department Care Team (Late st Contact Info) Description 09/18/2023 Orders Only Department of Urology in [place], [place] [address], [place] [phone] Nicolasa Fields, RAJNI, C.N.P. [address], [place] [address] Social History Tobacco Use Types Packs/Day Years [...] often do you attend chur ch or jewish services? 1 to 4 times per year 09/04/2022 Do you belong to any clubs o r organizations such as druze groups, unions, fraternal or athletic groups, or [...] Answer Date Recorded PHQ-2 Score 0 11/25/2019 [facility] [place] of Occupat ional Health - Occupational Stress [...] your living situation today? I have a [facility] place to live 09/18/2022 Education Answer Date Recorded What is the highest level of school you have completed or the highest degree you have received? Master's degree (e.g., MA, MS, Enrique, MEd, HELMET COVERER, ALLYN) 01/09/2019 Sex and Gender Information Value Date Recorded Sex Assigned at Female 09/19/2017 7:29 PM CDT Gender Identity Female 09/19/2017 7:29 PM CDT Sexual Orientation Straight 09/19/2017 7: 29 PM CDT documented as of this encounter Plan of Treatment Not on file documented as of this encounter Visit Diagnoses Not on filedocumented in this encounter Care Teams Hat Liner Relationship Specialty Start Date End Date Elsewhere, Pcp PCP - General Internal Medicine 01/04/23 documented as of this encounter
--- OUTSIDE RECORDS SUMMARY | 2023-10-23 09:55 | XMS_ITS | Encounter Summary ---
Author Organization [facility] Address [address] [place] [address] Care Team Providers Care Dye Tub Operator Name Role Phone Elsewhere, Pcp Primary Care Provider Unavailabl e Reason for Visit * Reason Comments Botulinum Toxin Injection * Outpatient (Routine) - Closed Specialty Diagnoses / Procedures Referred By Sarina pierce Referred To Contact Diagnoses Urinary Urge Incontinence Procedures Cysto w/botox Nicolasa Feilds APRN, C.N.P. [address], [place] [address] [facility] Referral ID Status Reason Start Date Expiration Date Visits Re quested Visits Authorized [id number] Closed 08/21/2023 08/20/2026 1 1 Encounter Details Date Type Department Care Team (Latest Contact Info) Description 09/27/2023 2:30 PM CDT Procedure visit Department of Urology in [place], [place] [address] [place] [address] Schuyler Livingston M.D. [address], [place] [address] Hypertonic Bladder (Primary Dx); Urinary Urge Incontinence Social History Tobacco Use Types Packs/Day Years [...] 09/04/2022 How often do you attend chur or taoist services? 1 to 4 times per year 09/04/2022 Do you belong to any clubs o r organizations such as latter-day groups, unions, fraternal or athletic groups, or [...] Answer Date Recorded PHQ-2 Score 0 11/25/2019 [facility] - Occupational Stress Questionnaire Answer Date [...] money to buy more. Never true 09/19/19 Within the past 12 months, t he [...] living situation today? I have a [facility] place to live 09/18/2022 Education Answer Date Recorded What is the highest level of school you have completed or the highest degree you have received? Master's degree (e.g., DEMETRIO, MS, Enrique, MEd, TREASURY MANAGEMENT SALES CONSULTANT, ALLYN) 01/09/2019 Sex and Gender Information Value Date Recorded Sex Assigned at Female 09/19/2017 7:29 PM CDT Gender Identity Female 09/19/2017 7:29 PM CDT Sexual Orientation Straight 09/19/2017 7: 29 PM CDT documented as of this encounter Procedure Notes * Schuyler Livingston M.D. 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 PROCEDURE Cystoscopy with injection of intravesical botulinum toxin. (CPT code 07834) MEDICATION Botulinum toxin 100 units mixed with [...] was injected into the urethra. A rigid 22-Peruvian Olympus cystoscope with 30-degree lens was utilized for the procedure. Normal saline was used as an irrigant. A cystoscope needle was used for the procedure. The 100 units of botulinum toxin was injected in equally divided aliquots. Approximately 12 to 15 injection sites were utilized [...] Schuyler Livingston M.D. 09/27/23 2:50 PM CDT documented in this encounter Plan of Treatment Not on file documented as of this encounter Procedures Procedure Name Priority Date/Time Associated Diagnosis Comments URO CYSTO W/BOTOX Routine 09/27/2023 2:3 0 PM CDT Urinary Urge Incontinence documented in this encounter Results * Cysto w/botox (09/27/2023 2:30 PM CDT) Narrative Schuyler Livingston M.D. - 09/27/2023 2:30 PM CDT Schuyler Livingston M.D. ? 09/27/2023 ??2:50 PM Cystoscopy within injection of Intravesicular Botox PREOPERATIVE DIAGNOSIS Urge incontinence secondary to a hypertonic bladder. 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 PROCEDURE Cystoscopy with injection of intravesical botulinum toxin. (CPT code 00416) MEDICATION Botulinum toxin 100 units mixed with [...] was injected into the urethra. A rigid 22-Peruvian Olympus cystoscope with 30-degree lens was utilized [...] Nicolasa Fields APRN, C.N.P. UROLOGY O RDERABLES documented in this encounter Visit Diagnoses Diagnosis Hypertonic Bladder- Primary Urinary Urge Incontinence documented in this encounter Administered Medications Inactive Administered Medications - up to 3 most recent administrations Medication Order MAR Action Action Date Dose Rate Site onabotulinumtoxinA injection 100 Units (BOTOX) 100 Units, intradetrusor, Once, On Sosa 09/27/23 at 1515, For 1 dose, Reconstitute per package insert instructions according to maintenance worker. Given 09/27/2023 3:13 PM CDT 100 Units Other documented in this encounter Care Teams Dye Tub Operator Relationship Specialty Start Date End Date Elsewhere, Pcp PCP - General Internal Medicine 01/04/23 documented as of this encounter
== END 2023-10-23 09:52 | disposition home or self-care (01) ==
LOC: INJ CL 09:52
PROVIDERS: PCP Family Medicine; Visit Provider Family Medicine
DX: M53.3 Sacrococcygeal disorders, not elsewhere classified (principal)
CPT/HCPCS: 27096; J0702; Q9966

== ENCOUNTER 2024-01-22 08:10 | Outpatient (CLI) | payer MEDICARE, BC, SELFPAY ==
--- OUTSIDE RECORDS SUMMARY | 2024-01-22 08:14 | XMS_ITS | Clinical Summary ---
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 0 11/26/2009 Active Cinnamon Bark (CINNAMON) 500 mg capsule Take 2 capsules by mouth once daily. 0 02/15/2011 Active medical supply, miscellaneous (GRADUATED COMPRESSION STOCKINGS)Indication s:Lymphedema For personal use. Length: calf Strength: 30-40 mmHg. Measurements pending. 4 Packet 2 12/18/2017 Active docusate (COLACE) 100 mg capsule Take 2 mg by mouth. 02/25/2014 Active cholecalciferol (VITAMIN D) 1,000 unit capsule Take 1 capsule by mouth once daily. 1 capsule 07/01/2018 Active trospium (SANCTURA) 20 mg tablet Take 20 mg by mouth. 03/22/2020 Active amoxicillin (AMOXIL) 500 mg capsuleIndications:H istory of joint replacement, unspecified joint TAKE FOUR CAPSULES BY MOUTH 1 HOUR BEFORE DENTAL APPOINTMENT 24 capsule. 09/26/2021 Active Blood Pressure Monitor KitIndications:Hyper tension, unspecified type Frequency of testin times per week 1 Each 03/09/2022 Active traMADoL (ULTRAM) 50 mg tabletIndications:Ch ronic right-sided low back pain without sciatica,Facet arthritis of lumbar region Take 0.5-1 Tablets (25-50 mg) by mouth 3 times daily if needed for Pain. Only for severe pain. 14 Tablet 02/16/2023 Active potassium chloride (KLOR-CON M10) 10 mEq extended-release tablet (part/cryst)Indicati ons:Bilateral lower extremity edema Take 1 Tablet (10 mEq) by mouth once daily with a meal. 90 Tablet 3 03/27/2023 Active losartan (COZAAR) 100 mg tabletIndications:Hy pertension, unspecified type Take 1 Tablet (100 mg) by mouth once daily. 90 Tablet 3 03/27/2023 Active furosemide (LASIX) 20 mg tabletIndications:Bi lateral lower extremity edema Take 1 Tablet (20 mg) by mouth every morning. 90 Tablet 3 03/27/2023 Active atorvastatin (LIPITOR) 20 mg tabletIndications:Hy perlipidemia, unspecified hyperlipidemia type Take 1 Tablet (20 mg) by mouth once daily with evening meal. 90 Tablet 3 03/27/2023 Active piroxicam (FELDENE) 20 mg capsuleIndications:M astodynia TAKE 1 CAPSULE(20 MG) BY MOUTH EVERY DAY WITH A MEAL 90 Capsule 2 04/17/2023 Active CPAPIndications:BELINDA (obstructive sleep apnea) CPAP machine [...] months, Frequency of use: Daily 1 Each 04/20/2023 Active tirzepatide (MOUNJARO) 2.5 mg/0.5 mL penIndications:Morbi d obesity (HC) Inject 0.5 mL (2.5 mg) subcutaneous once weekly. 2 mL 5 08/29/2023 Active tirzepatide (MOUNJARO) 7.5 mg/0.5 mL penIndications:Morbi d obesity (HC) Inject 0.5 mL (7.5 mg) subcutaneous once weekly. 2 mL 09/26/2023 Active celecoxib (CELEBREX) 100 mg capsuleIndications:C hronic right sacroiliac joint pain,Chronic right-sided low back pain without sciatica Take 1 Capsule (100 mg) by mouth two times daily with meals. 30 Capsule 10/09/2023 Active tirzepatide (MOUNJARO) 12.5 mg/0.5 mL penIndications:Morbi d obesity (HC) Inject 0.5 mL (12.5 mg) subcutaneous once weekly. 2 mL 11/21/2023 Active tirzepatide (MOUNJARO) 15 mg/0.5 mL penIndications:Morbi d obesity (HC) Inject 0.5 mL (15 mg) subcutaneous once weekly. 6 mL 3 12/19/2023 Active pen tirzepatide (Mounjaro) 10 mg/0.5 mL penIndications:Morbi d obesity (HC) ADMINISTER 10 MG UNDER THE SKIN 1 TIME WEEKLY 2 mL 11/03/2023 Active metFORMIN (GLUCOPHAGE XR) 500 mg Extended-Release tabletIndications:Pr ediabetes TAKE 1 TABLET(500 MG) BY MOUTH EVERY DAY WITH THE EVENING MEAL 90 Tablet 11/23/2023 Active Active Problems Problem Noted Date Diagnosed Date Bilateral lower extremity edema 10/04/2022 Venous insufficiency 10/04/2022 Chronic right-sided low back pain without sciati ca 06/22/2022 Overview (11/28/2023): 05/02/2022 fluoroscopic guided right sacroiliac joint injection? LIdocaine was mildly better, 50% better pain relief. June 20 2022: Right L4-5 and L5-S1 facet joint injections under fluoroscopic guidance. Jan 2023: Right sacroiliac joint injection under fluoro. October 23, 2023: Right sacroiliac joint injection under fluoro, did not get any significant relief, at best 20% pain reduction. Primary cancer of right breast 12/18/2017 Essential hypertension 12/15/2016 Lymphedema 02/21/2013 Endometrial cancer 02/21/2013 Mixed hyperlipidemia 02/21/2013 Morbid obesity 01/09/2012 Unspecified urinary incontinence 01/09/2012 Impaired fasting glucose 12/19/2011 Personal history of rectal cancer 03/09/2009 Overview (02/09/2021): Colonoscopy 02/2009 normal repeat in 3 years Colonoscopy 03/2012 normal repeat in 5 years Colonoscopy 07/2015 diverticuli repeat in 5 years Colonoscopy 01/2021 2 TA, repeat in 5 years Resolved Problems Problem Noted Date Diagnosed Date Resolved Date Varicose veins 02/21/2013 03/27/2023 PE (pulmonary embolism) 02/21/201301/22 DVT (deep vein thrombosis) in 02/21/2013 02/19/2020 Mastodynia 01/09/2012 02/19/2020 FDC (current) use of anticoagulants 04/15/2010 01/09/2012 Overview (04/18/2010): INR Goal Range: 2.0 - 3.0 DVT (deep venous thrombosis) 04/29/2008 01/09/2012 Overview (07/06/2009): Updated by system to replace inactive record Other pulmonary embolism and infarction 04/29/2008 01/09/2012 Other lymphedema 04/29/2008 02/17/2019 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 03/01/2021 watermaster (current) use of anticoagulants 04/29/2008 01/09/2012 Encounters Date Type Department Care Team Description 01/18/2024 Telephone [facility] [address] [place] [address] Maurizio Moreno MD Follow Up 01/18/2024 Orders Only [facility] [address] [place] [id number] Maurizio Moreno MD <No scans attached> 01/17/2024 Travel 01/04/2024 1:45 PM CDT Ancillary Procedure [facility] [address] [place] [id number] 01/04/2024 Travel 12/31/2023 Travel 11/27/2023 8:15 AM CDT Office Visit [facility] [address] [place] [address] Tristan Khan MD Musculoskeletal Problem (Follow-up Low Back Pain/Had injection with Dr Gimenez on 10/23/2023) 11/27/2023 Travel 11/23/2023 Travel 11/21/2023 Refill [facility] [address] [place] [address] Maurizio Moreno MD Refill Request (Metformin) 10/31/2023 Refill [facility] [address] [place] [address] Maurizio Moreno MD Refill Request (Mounjaro) 10/23/2023 10:20 AM CDT Office Visit [facility] [address] [facility] [phone] Chandra Gimenez MD Procedure (Right intra-articular SACROILIAC JOINT INJECTION ) 10/23/2023 Orders Only [facility] Scanner 1 scan: (1-Ord) [facility], DIAGNOSTIC AND THERAPEUTIC RT SACRO-ILIAC JOINT INJ OF ANESTHETIC AND OR STEROID UNDER FLUORO, 10/23/2023 from Last 3 Months Immunizations Name Administration Dates Next Due AMB INFLUENZA IIV3 (AGE 65+ YRS) PF (Flu Clinic Only) 02/02/2017 AMB Influenza, IIV3 (Age >=3 years)(Flu Clinic Only) 01/22/2013 Amb Influenza, Inact (High-d ose Quadrivalent) (Flu Clinic Only) 01/09/2020 Amb Influenza, Inact (High-d ose) (Flu Clinic Only) 02/05/2016,02/11/2015 COVID-19 VACCINE COMIRNATY (PFIZER-BIONTECH 30MCG/0.3ML) 12YO+ PFS 01/23/2023 COVID-19 VACCINE SPIKEVAX (M ODERNA 50MCG/0.5ML) 12YO+ PFS 07/24/2023 COVID-19 vaccine (Moderna 100mcg/0.5mL) PF, MDV 07/10/2020,06/10/2020 COVID-19 vaccine (Moderna 50mcg/0.5mL) 12YO+ BIVALENT PF, MDV 08/24/2022 COVID-19 vaccine (Pfizer-Bio NTech 30mcg/0.3mL) 12YO+ BIVALENT PF, MDV 01/01/2022 COVID-19 vaccine (Pfizer-Bio NTech 30mcg/0.3mL) 12YO+ HERMINIA-SUCROSE PF, MDV 08/13/2021 Hepatitis A (Adult) 12/15/2016,06/03/2000 Hepatitis B (Adult) [...] Sign Reading Time Taken Comments Blood Pressure 121/79 11/27/2023 8:18 AM CDT Pulse 71 11/27/2023 8:18 AM CDT Temperature 36.9 ??C (98.4 ??F) 11/29/2022 2:16 PM CD T Respiratory Rate 18 11/29/2022 2:16 PM CDT Oxygen Saturation 99% 11/27/2023 8:18 AM CDT Inhaled Oxygen Concentration - - Weight 126.6 kg (279 lb 1.6 oz) 11/27/2023 8:18 AM CDT Height 168.9 cm (5' 6.5) 03/27/2023 10 :28 AM RN HEMODIALYSIS CHARGE Body Mass Index 44.38 03/27/2023 10:28 AM RN HEMODIALYSIS CHARGE Plan of Treatment Upcoming Encounters Date Type Department Care Team (Late st Contact Info) Description 01/22/2024 8:40 AM CDT Office Visit [facility] at [facility] [address] [place] [phone] Chandra Gimenez MD [address] [place] [address] Arrived 02/14/2024 10:20 AM CDT Office Visit [facility] [address] [place] [address] Tristan Khan MD [address] [place] [address] 04/08/2024 9:40 AM RN HEMODIALYSIS CHARGE Office Visit [facility] [address] [place] [address] Maurizio Moreno MD [address] [place] [address] Health Maintenance Due Date Last Done Comments COVID-19 vaccine series ( season) 2023 07/24/2023, 01/23/2023, 08/24/2022, Additional history exists Influenza for age 65+ [...] Completed 10/04/2022, 07/29/2015, 03/06/2014, Additional history exists RSV vaccine for adults or Completed 01/23/2023 Procedures Procedure Name Priority Date/Time Associated Diagnosis Comments US THYROID/PARATHYROID Routine 01/04/2024 2:23 PM CDT Thyroid nodule SCAN-OPERATIVE/PROC EDURE REPORT 10/23/2023 12:00 AM CDT LIPID PANEL W REFLEX MEASURED LDL Routine 03/20/2023 10:05 AM RN HEMODIALYSIS CHARGE Hyperlipidemia, unspecified hyperlipidemia type COLONOSCOPY SCREENING Routine 02/08/2021 8:39 AM CDT Polyp of colon, unspecified part of colon, unspecified type ANTI HCV Routine 07/13/2015 11:05 AM CDT Need for hepatitis C screening test XR DXA BONE DENSITY 2 SITES AXIAL Routine 03/12/2014 11:18 AM RN HEMODIALYSIS CHARGE Osteoporosis from Last 3 Months or Most Recently Relevant to Health Maintenance Results * US THYROID/PARATHYROID (01/04/2024 2:23 PM CDT) Anatomical Region Laterality Modality THYROID Ultrasound 01/07/2024 5:49 AM CDT Impressions 01/07/2024 5:49 AM CDT Stable bilateral thyroid nodules. Dictated by Luis Felipe Lacey MD @ 01/07/2024 5:49:54 AM (Electronically Signed) Narrative 01/07/2024 5:49 AM CDT For Patients: ??As a result of the Century Cures Act, medical imaging exams and procedure reports are released immediately into your electronic medical record. ??You may view this report before your referring provider. ??If you have questions, please contact your health care provider. INDICATION: Thyroid nodule COMPARISON: 01/09/2022 TECHNIQUE: Cedeno scale and color Doppler images were acquired of the thyroid gland. FINDINGS: Isthmus measures less than 1 millimeter. Solid heterogeneous nodule left thyroid lobe measures 1.8 x 1.3 x 1.6 cm, previously measuring 1.9 x 1.0 x 1.4 cm. Solid and cystic nodule left thyroid lobe measures 1.1 x 0.9 x 0.9 cm, previously measuring 1.0 cm. Solid nodule right thyroid lobe measures 1.6 x 0.8 x 1.3 cm, previously measuring 1.1 cm. Mostly cystic nodule right thyroid lobe measures 1.2 x 0.7 x 1.1 cm, previously measuring 9 millimeters. The right lobe measures 5.0 x 2.3 x 1.8 cm and the left lobe measures 5.5 x 2.6 x 2.0 cm in size. The color Doppler images demonstrate normal vascularity. There is no evidence of cervical lymphadenopathy or parathyroid mass. Procedure Note Luis Felipe Lacey MD - 01/07/2024 For Patients: As a result of the Cures Act, medical imagingexams and procedure reports are released immediately into your electronicmedical record. You may view this report before your referring provider.If you have questions, please contact your health care provider. INDICATION: Thyroid nodule COMPARISON: 01/09/2022 TECHNIQUE: Cedeno scale and color Doppler images were acquired of the thyroid gland. FINDINGS: Isthmus measures less than 1 millimeter. Solid heterogeneous nodule leftthyroid lobe measures 1.8 x 1.3 x 1.6 cm, previously measuring 1.9 x 1.0 x1.4 cm. Solid and cystic nodule left thyroid lobe measures 1.1 x 0.9 x 0.9cm, previously measuring 1.0 cm. Solid nodule right thyroid lobe measures1.6 x 0.8 x 1.3 cm, previously measuring 1.1 cm. Mostly cystic noduleright thyroid lobe measures 1.2 x 0.7 x 1.1 cm, previously measuring 9millimeters. The right lobe measures 5.0 x 2.3 x 1.8 cm and the left lobemeasures 5.5 x 2.6 x 2.0 cm in size. The color Doppler images demonstratenormal vascularity. There is no evidence of cervical lymphadenopathy orparathyroid mass. IMPRESSION: Stable bilateral thyroid nodules. Dictated by Luis Felipe Lacey MD @ 01/07/2024 5:49:54 AM (Electronically Signed) Maurizio Moreno MD US * SCAN-OPERATIVE/PROCEDURE REPORT (10/23/2023 12:00 AM CDT) Scanner OTHER * (ABNORMAL) LIPID PANEL W REFLEX MEASURED LDL (03/20/2023 10:05 AM RN HEMODIALYSIS CHARGE) CHOLESTEROL,TOTAL 188 100 - 199 mg/dL 03/20/2023 4:27 PM RN HEMODIALYSIS CHARGE [facility] Comment: Cholesterol, Total Reference Ranges Desirable <200 mg/dL Borderline 200-239 mg/dL High >=240 mg/dL TRIGLYCERIDES 156(H) <150 mg/dL 03/20/2023 4:27 PM RN HEMODIALYSIS CHARGE [facility] HDL CHOLESTEROL 52 >40 mg/dL 4:27 PM RN HEMODIALYSIS CHARGE [facility] NON-HDL CHOLESTEROL 136 <145 mg/dl 03/20/2023 4:27 PM RN HEMODIALYSIS CHARGE [facility] CHOL/HDL RATIO 3.62 <4.50 03/20/2023 4:27 PM RN HEMODIALYSIS CHARGE [facility] LDL CHOLESTEROL 105 <=130 mg/dL 03/20/2023 4:27 PM RN HEMODIALYSIS CHARGE [facility] VLDL CHOLESTEROL 31(H) <=30 mg/dL 03/20/2023 4:27 PM RN HEMODIALYSIS CHARGE [facility] PROVIDER ORDERED STATUS RANDOM 03/20/2023 4:27 PM [facility] Blood BLOOD SPECIMEN / Unknown Venipuncture / Unknown 03/20/2023 10:05 AM RN HEMODIALYSIS CHARGE 03/20/2023 10:08 AM RN HEMODIALYSIS CHARGE Maurizio Moreno MD CHEMISTRY [facility] [address] [place] [address], * COLONOSCOPY (02/08/2021 8:48 AM CDT) 02/08/2021 [...] adequate candidate for conscious sedation. The [id number] was passed through the anus and advanced [...] 8:48 AM Procedure Code(s): --- Professional --- 60561, Colonoscopy, flexible; with removalof tumor(s), polyp(s), or other lesion(s) bysnare technique Diagnosis Code(s): --- Professional --- Z85.038, Personal history of other malignant neoplasm of large intestine K63.5, Polyp of colon Z98.0, Intestinal bypass and anastomosisstatus CPT copyright 2020 [employer]. All rights reserved. The codes documented in this report are preliminary and upon dye colorist dyer reviewmay be revised to meet current compliance requirements. Scope In: 9:34:49 AM Scope Withdrawal Time 0 hours 12 minutes 23 seconds Scope Out: 9:59:26 AM Sheldon Love MD PROCEDURE ORD * ANTI HCV (07/13/2015 11:05 AM CDT) HEPATITIS C ANTIBODY Non-Reacti ve Non-Reacti ve 07/13/2015 6:02 PM CDT [facility] Blood specimen (specimen) BLOOD SPECIMEN / Unknown Butterfly / Unknown 07/13/2015 11:05 AM CDT 07/13/2015 11:05 AM CDT Narrative [facility] - 07/13/2015 6:02 PM CDT Antibodies to HCV not detected; does not exclude the possibility of exposure to HCV. Maurizio Moreno MD SEND OUTS [facility] [address] [place] [address], [place] * XR DXA BONE DENSITY 2 SITES (03/12/2014 11:18 AM RN HEMODIALYSIS CHARGE) Anatomical Region Laterality Modality Spine, HIPS, HIPL, HIPR Other Narrative 03/23/2014 2:06 PM RN HEMODIALYSIS CHARGE Please see scanned document for results of this study. Procedure Note Shannan Cole PA - 03/23/2014 Please see scanned document for results of this study. 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
--- OUTSIDE RECORDS SUMMARY | 2024-01-22 08:14 | XMS_ITS | Clinical Summary ---
Author Organization [facility] Address [address] [place] [address] Care Team Providers Care Nurse Instructor Name Role Phone Elsewhere, Pcp Primary Care Provider Unavailabl e Source Comments Patient records contain information from all sites at [facility]. For routine questions regarding patient records, call [phone] during business hours, M-F 8:00 AM - 5:00 PM Central Time. Record requests for emergency care only can be directed to [phone] at any time.[facility] Allergies Active Allergy Reactions Criticality Noted [...] mouth as needed for constipation. 02/25/2014 Active multivit-min/iron/ folic/lutein (CENTRUM SILVER WOMEN ORAL) Take 1 tablet by mouth daily. 10/04/2010 Active piroxicam (FELDENE) 20 mg capsule Take 1 capsule by mouth daily. 10/04/2010 Active metFORMIN XR (GLUCOPHAGE-XR) 500 mg 24 hr tablet Take 1 tablet by mouth daily. 05/14/2021 Active DME Gradient compression garments & suppliesIndication s:Lymphedema DME Order Open Toe 4 Unspecified 02/16/2022 Active losartan (COZAAR) 100 mg tablet 08/28/2022 Active anastrozole (ARIMIDEX) 1 mg tabletIndications: Cancer Breast Personal History TAKE 1 TABLET(1 MG) [...] under the skin over 168 hr. 11/21/2023 Active tirzepatide (MOUNJARO) 10 mg/0.5 mL pen injector injection Inject 10 mg under the skin over 168 hr. 10/24/2023 Active tirzepatide (MOUNJARO) 7.5 mg/0.5 mL pen injector injection Inject 7.5 mg under the skin over 168 hr. 09/26/2023 Active Active Problems Problem Noted Date Diagnosed Date Gynecological Examination Normal 02/16/2022 Overview (02/16/2022): S/P total abdominal hysterectomy with bilateral salpingo-oophorectomy for endometrial cancer in 2007. Recommend follow-up every 1-2 years for gynecological exam. She no longer requires Pap smears. Cancer Breast Personal History 02/16/2022 Overview (02/16/2022): Diagnosed November, with Stage IA (cT1c, cN0, cM0, G1, ER: Positive, DE: Positive, HER2: Negative) right breast cancer. She continues to follow up every 6 months in the breast Clinic at the [facility] in [place]. 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 on 02/04/2018 Overview (12/14/2017): Added automatically from request for surgery [id number] Cancer Colon Personal History 08/15/2017 Cancer Endometrium Personal History 08/15/2017 Overview (11/25/2019): She is status post laparoscopic vaginal hysterectomy with bilateral salpingo-oophorectomy and bilateral pelvic and periaortic lymphadenectomy on the January for a grade 1, stage IB endometrial cancer. Assessment & Plan (11/25/2019 1:53 PM CDT): Recommend follow-up in 1-2 years for continued visual assessment. Hypertension 12/15/2016 Other Polyuria 09/12/2016 Body Mass Index 40.0 To 44.9 Adult 08/02/2016 Overview (09/12/2016): Body mass index (BMI) 40.0-44.9, adult Rule [...] Deep Vein Acute Lower Extremity 05/22/2008 08/15/2017 Overview (09/12/2016): Deep Vein Thrombosis Lower Extremity NOS Malignant Neoplasm Of Endometrium 04/22/2008 08/15/2017 Overview (09/12/2016): Ca Uterus Endometrial Malignant Neoplasm Of Uterus Endometrial 04/22/2008 08/15/2017 Malignant Neoplasm Of Endometrium 01/29/2008 08/15/2017 Malignant Neoplasm Of Rectum 05/31/2004 08/15/2017 Immunizations Name Administration Dates Next Due H1N1 Inj 04/06/2009 HZV (ZOSTAVAX) 05/05/2009 HepA Adult 12/15/2016,06/03/2000 HepB Adult 12/30/2013,07/24/2013,06/27/2013 Influenza TIV (IM) 01/01/2019, 1,03/07/2005,2003,02/19/2003 Influenza high [...] Typhoid, Unspecified 05/24/2000 Typhus (discontinued) 05/24/2000 influenza trivalent high dos e (HD)(PF) 01/01/2019,01/21/2018,01/26/2014 influenza trivalent vaccine (6 months and older)(PF) 01/14/2009,02/10/2008 Family History Medical History Relation Name Comments [...] er cancer Stroke Mother's Brother 2 Sigmund Chojnacki Stroke Mother's Brother 3 Iain Chojnacki Pancreatic cancer Mother's Sister Mira Oneil Lung disease Paternal Grandmother overweight Sister 1 dry eye Sister 2 No Known Problems Son 1 No Known Problems Son 2 Colon cancer Uncle Paternal Age 56 Relation Name Status Comments Aunt Paternal Father Chris Cabezas Father's Brother 1 Fran Cabezas Father's Brother 2 Jeremiah Cabezas Father's Sister Mattie Castillo Maternal Grandfather Maternal Grandmother Mother Chanelle Cabezas Mother's Brother 1 Alonso Babaralva Mother's Brother 2 Sigmund Chogabonacki Mother's Brother 3 Iain Chogabonacki Mother's Sister Mira Oneil Paternal Grandfather Paternal Grandmother Sister 1 Alive [...] 0.6 oz pur e alcohol) Rarely drink. [facility] Utilities Answer Date Recorded In the past [...] often do you attend chur ch or confucianist services? 1 to 4 times per year 09/04/2022 Do you belong to any clubs o r organizations such as anabaptist groups, unions, fraternal or athletic groups, or [...] Answer Date Recorded PHQ-2 Score 0 11/25/2019 [facility]ational Stress Questionnaire Answer Date Recorded [...] living situation today? I have a [facility] place to live 10/01/2023 Education Answer Date Recorded What is the highest level of school you have completed or the highest degree you have received? Master's degree (e.g., DEMETRIO, MS, Enrique, MEd, TICK INSPECTOR, ALLYN) 01/09/2019 Sex and Gender Information Value Date Recorded Sex Assigned at Female 09/19/2017 7:29 PM CDT Gender Identity Female 09/19/2017 7:29 PM CDT Sexual Orientation Straight 09/19/2017 7: 29 PM CDT Last Filed Vital Signs Vital Sign Reading Time Taken Comments Blood Pressure 147/84 03/29/2023 3:04 PM IT TECHNICIAN Pulse 83 03/29/2023 3:04 PM IT TECHNICIAN Temperature 37 ??C (98.6 ??F) 12/06/2020 1:49 PM CDT Respiratory Rate 20 11/25/2019 12:44 PM CDT Oxygen Saturation 95% 12/06/2020 1:49 PM CDT Inhaled Oxygen Concentration - - Weight 131 kg (289 lb 11 oz) 03/29/2023 3:04 PM IT TECHNICIAN Height 168.5 cm (5' 6.34) 03/29/2023 3:04 PM CS T Body Mass Index 46.28 03/29/2023 3:04 PM IT TECHNICIAN Plan of Treatment Upcoming Encounters Date Type Department Care Team (Late st Contact Info) Description 02/18/2024 12:00 PM CDT Office Visit Department of Obstetrics and Gynecology in [place], [place] [address] [phone] Veronique Galeana, LOADER MAGAZINE GRINDER, C.N.P. [address] [phone] Health Maintenance Due Date Last Done Comments CT Colonography 1950 Cologuard 1950 Hepatitis C Screening 1950 Depression Screening (Annual PHQ-2) 04/23/2023 Fall Risk Screen (Annual) 04/23/2023 Office Visit for Blood Pressure Check / Re-check 06/28/2023 03/29/2023 COVID-19 Vaccine ( season) 2023 07/24/2023, 01/23/2023, 08/24/2022, Additional history exists Influenza Vaccine (#1) 2024 , 01/01/2022, 01/27/2021, [...] (32-36 weeks) or 60+ years Completed 01/23/2023 HPV Vaccines Aged Out No longer eligi ble based on patient's age to complete this topic Medical Devices Implanted Type Area Plant Supervisor Device Identifier Shelf Expiration Date Model / Serial / Lot Clp Hrzn Ti 6 Demetrius Tapia Dank - [id number] Implanted:Qty: 1 on 12/31/2017 by Monica Contreras M.D. at [facility] Hardware e.g. pins/screw s/rods [employer] [id number] / / Clp Hrzn Ti 6 Demetrius Red - [id number] Implanted:Qty: 1 on 12/31/2017 by Monica Contreras M.D. at [facility] Hardware e.g. pins/screw s/rods Amanda (Div of [employer]) [id number] 07/21/2022 1201 / / [id number] Gabo Lopez Tib Mb Sz 4.0 - Wright [id number] Implanted:Qty: 1 on 04/12/2010 Knee Implant Other/Legacy - See Implant Description [employer] Description:Device Manufactu rer - J & J Ortho. Body Location - Other. Right. Device Status Text - [id number] [id number]. Sigma Post Stab.W Lug Fem Sz 4n Rt - Wright [id number] Implanted:Qty: 1 on 04/12/2010 Knee Implant Other/Legacy - See Implant Description [employer] Description:Device Manufactu rer - J & J Ortho. Body Location - Other. Right. Device Status Text - KNEE [id number]. J J Tib Insert Sigma 4x12.5 - Wright [id number] Implanted:Qty: 1 on 04/12/2010 Knee Implant Other/Legacy - See Implant Description [employer] Description:Device Manufactu rer - J & J Ortho. Body Location - Other. Right. Device Status Text - [id number] [id number]. J J Sig Patella Oval 38 - Wright [id number] Implanted:Qty: 1 on 04/12/2010 Knee Implant Other/Legacy - See Implant Description [employer] Description:Device Manufactu rer - J & J Ortho. Body Location - Other. Right. Device Status Text - KNEE [id number]. Patch Dual Mesh 1mm 20.0 X 30 - Wright [id number] Implanted:Qty: 1 on 01/13/2009 Mesh or Patch Other/Legacy - See Implant Description [place] Description:Device Manufactu rer - [employer] [place] [employer] Body Location - ?. Not Applicable. Device Status Text - [id number]. Cement Bone Large - Wright [id number] Implanted:Qty: 1 on 04/12/2010 Mis Other [place] Description:Device Manufactu rer - [place] Fabi[employer].. Device Status Text - MISCOTHER-2840. Cement Bone Small - Wright [id number] Implanted:Qty: 1 on 04/12/2010 Misc Other [place] Description:Device Manufactu rer - [employer].. Device Status Text - MISCOTHER-2841. Procedures Procedure Name Priority Date/Time Associated Diagnosis Comments BI BREAST DIAGNOSTIC BILATERAL WITH TOMOSYNTHESIS RAD - Routine (most inpatients and all outpatients) 03/29/2023 10:56 AM IT TECHNICIAN Screening Mammogram Breast Cancer from Last 3 Months or Most Recently Relevant to Health Maintenance Results * BI Breast Diagnostic Bilateral with Tomosynthesis (03/29/2023 10:56 AM IT TECHNICIAN) Anatomical Region Laterality Modality Breast, Breast Imaging RST L OS, Breast Imaging ARZ LOS, Breast Imaging FLA LOS Bilateral Mammography 03/29/2023 11:0 6 AM IT TECHNICIAN Impressions 03/29/2023 11:18 AM IT TECHNICIAN No mammographic findings of malignancy. RECOMMENDATION: ??Annual Screening Mammogram ASSESSMENT: ??BI-RADS: 2: Benign. Narrative 03/29/2023 11:18 AM IT TECHNICIAN EXAM: ??BI BREAST DIAGNOSTIC BILATERAL WITH TOMOSYNTHESIS [...] Advance Directives For more information, please contact: [phone] * Full Code (Latest Code Status on File) Date Activated Date Inactivated Comments 12/31/2017 8:57 AM 12/31/2017 7:23 PM Question Answer Comments Full Code: Not Discussed Due to: Not medically appropriate Care Teams Nurse Instructor Relationship Specialty Start Date End Date Elsewhere, Pcp PCP - General Internal Medicine 01/04/23
--- OUTSIDE RECORDS SUMMARY | 2024-01-22 08:14 | XMS_ITS | Referral Summary ---
Author Organization [facility] Address [address] [place] [address] Care Team Providers Care Platform Operations Director Name Role Phone Elsewhere, Pcp Primary Care Provider Unavailabl e Source Comments Patient records contain information from all sites at [facility]. For routine questions regarding patient records, call [phone] during business hours, M-F 8:00 AM - 5:00 PM Central Time. Record requests for emergency care only can be directed to [phone] at any time.[facility] Allergies Active Allergy Reactions Criticality Noted [...] IA (cT1c, cN0, cM0, G1, ER: Positive, AR: Positive, HER2: Negative) right breast cancer. She continues to follow up every 6 months in the breast Clinic at the [facility] in [place]. 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 on 02/04/2018 Overview (12/14/2017): Added automatically from request for surgery [id number] Cancer Colon Personal History 08/15/2017 Cancer Endometrium [...] trivalent vaccine (6 months and older)(PF) 01/14/2009,02/10/2008 Social History Tobacco Use Types Packs/Day Years Used Date Smoking Tobacco: Former Cigarettes 0 12/23/1967 - 06/22/1975 Smokeless Tobacco: Never Tobacco Cessation:Counseling Given: Not Answered Comments:Only a social smoker when I smoked. Maybe smoked a pack a week. Alcohol Use Standard Drinks/Week Comments Yes 1 (1 standard drink = 0.6 oz pur e alcohol) Rarely drink. [facility] Brigadeities Answer Date Recorded In the past 12 months has e Otto [employer]ave, gas, oil, or water JAYS threatened to shut off services in your [...] week 09/04/2022 How often do you attend up health system or anabaptism services? 1 to 4 times per year [...] Answer Date Recorded PHQ-2 Score 0 11/25/2019 [facility] - Occupational Stress [...] your living situation today? I have a [facility] place to live 10/01/2023 Education Answer Date Recorded What is the highest level of school you have completed or the highest degree you have received? Master's degree (e.g., MA, MS, Enrique, MEd, WHAT JOB TITLES MEAN, ALLYN) 01/09/2019 Sex and Gender Information Value Date Recorded Sex Assigned at Female 09/19/2017 7:29 PM CDT Gender Identity Female 09/19/2017 7:29 PM CDT Sexual Orientation Straight 09/19/2017 7: 29 PM CDT Last Filed Vital Signs Vital Sign Reading Time Taken Comments Blood Pressure 147/84 03/29/2023 3:04 PM KITCHEN WORK SUPERVISOR Pulse 83 03/29/2023 3:04 PM KITCHEN WORK SUPERVISOR Temperature 37 ??C (98.6 ??F) 12/06/2020 1:49 PM CDT Respiratory Rate 20 11/25/2019 12:44 PM CDT Oxygen Saturation 95% 12/06/2020 1:49 PM CDT Inhaled Oxygen Concentration - - Weight 131 kg (289 lb 11 oz) 03/29/2023 3:04 PM KITCHEN WORK SUPERVISOR Height 168.5 cm (5' 6.34) 03/29/2023 3:04 PM CS T Body Mass Index 46.28 03/29/2023 3:04 PM KITCHEN WORK SUPERVISOR Plan of Treatment Upcoming Encounters Date Type Department Care Team (Late st Contact Info) Description 02/18/2024 12:00 PM CDT Office Visit Department of Obstetrics and Gynecology in [place], [place] [address], [place] [phone] Veronique Galeana APRN, C.N.P. [address] [place] [phone] Medical Devices Implanted Type Area Acetylene Operator Device Identifier Shelf Expiration Date Model / Serial / Lot Clp Hrzn Ti 6 Clp Md Dank - [id number] Implanted:Qty: 1 on 12/31/2017 by Monica Contreras M.D. at [facility] Hardware e.g. pins/screw s/rods [employer] [id number] / / Clp Hrzn Ti 6 Clp Red - [id number] Implanted:Qty: 1 on 12/31/2017 by Monica Contreras M.D. at [facility] Hardware e.g. pins/screw s/rods Weck (Div of [employer]) [id number] 07/21/2022 1201 / / [id number] J Gabo Zheng Tranando Tib Mb Sz 4.0 - Wright [id number] Implanted:Qty: 1 on 04/12/2010 Knee Implant Other/Legacy - See Implant Description [employer] Description:Device Manufactu rer - J & J Ortho. Body Location - Other. Right. Device Status Text - KNEE [id number]. Sigma Post Stab.W Lug Fem Sz 4n Rt - Wright [id number] Implanted:Qty: 1 on 04/12/2010 Knee Implant Other/Legacy - See Implant Description [employer] Description:Device Manufactu rer - J & J Ortho. Body Location - Other. Right. Device Status Text - KNEE [id number]. J J Tib Insert Sigma 4x12.5 - Wright [id number] Implanted:Qty: 1 on 04/12/2010 Knee Implant Other/Legacy - See Implant Description [employer] Description:Device Manufactu rer - J & J Ortho. Body Location - Other. Right. Device Status Text - KNEE [id number]. J J Sig Patella Oval 38 - Wright [id number] Implanted:Qty: 1 on 04/12/2010 Knee Implant Other/Legacy - See Implant Description [employer] Description:Device Manufactu rer - J & J Ortho. Body Location - Other. Right. Device Status Text - KNEE [id number]. Patch Dual Mesh 1mm 20.0 X 30 - Wright [id number] Implanted:Qty: 1 on 01/13/2009 Mesh or Patch Other/Legacy - See Implant Description [place] Description:Device Manufactu rer - [employer] [place] [employer] Body Location - ?. Not Applicable. Device Status Text - [id number]. Cement Bone Large - Wright [id number] Implanted:Qty: 1 on 04/12/2010 [facility] Other [place] Description:Device Manufactu rer - [place] [employer].. Device Status Text - MISCOTHER-2840. Cement Bone Small - Wright [id number] Implanted:Qty: 1 on 04/12/2010 [facility] Other Chel[place] Description:Device Manufactu rer - [place] Fabi[employer].. Device Status Text - MISCOTHER-2841. Procedures Procedure Name Priority Date/Time Associated Diagnosis Comments BI BREAST DIAGNOSTIC BILATERAL WITH TOMOSYNTHESIS RAD - Routine (most inpatients and all outpatients) 03/29/2023 10:56 AM KITCHEN WORK SUPERVISOR Screening Mammogram Breast Cancer from Last 3 Months or Most Recently Relevant to Health Maintenance Results * BI Breast Diagnostic Bilateral with Tomosynthesis (03/29/2023 10:56 AM KITCHEN WORK SUPERVISOR) Anatomical Region Laterality Modality Breast, Breast Imaging RST L OS, Breast Imaging ARZ LOS, Breast Imaging FLA LOS Bilateral Mammography 03/29/2023 11:0 6 AM KITCHEN WORK SUPERVISOR Impressions 03/29/2023 11:18 AM KITCHEN WORK SUPERVISOR No mammographic findings of malignancy. RECOMMENDATION: ??Annual Screening Mammogram ASSESSMENT: ??BI-RADS: 2: Benign. Narrative 03/29/2023 11:18 AM KITCHEN WORK SUPERVISOR EXAM: ??BI BREAST DIAGNOSTIC BILATERAL WITH TOMOSYNTHESIS [...] Advance Directives For more information, please contact: [phone] * Full Code (Latest Code Status on File) Date Activated Date Inactivated Comments 12/31/2017 8:57 AM 12/31/2017 7:23 PM Question Answer Comments Full Code: Not Discussed Due to: Not medically appropriate Care Teams Platform Operations Director Relationship Specialty Start Date End Date Elsewhere, Pcp PCP - General Internal Medicine 01/04/23
--- OUTSIDE RECORDS SUMMARY | 2024-01-22 08:14 | XMS_ITS ---
Author Organization [facility] Address [address] [place] [address] Care Team Providers Care Billing Auditor Name Role Phone Unavailable Unavailable Unavailable Surgery Details Not on file Complications Check Surgery Details section. Procedure Estimated Blood Loss Check Surgery Details section. Procedure Findings Check Surgery Details section. Procedure Specimens Taken Check Surgery Details section.
--- OUTSIDE RECORDS SUMMARY | 2024-01-22 08:14 | XMS_ITS ---
Author Organization [facility] Address [address] [place] [address] Care Team Providers Care Mosaic Worker Name Role Phone Elsewhere, Pcp Primary Care [...] IA (cT1c, cN0, cM0, G1, ER: Positive, IL: Positive, HER2: Negative) right breast cancer. She continues to follow up every 6 months in the breast Clinic at the [facility] in [place]. 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 on 02/04/2018 Overview (12/14/2017): Added automatically from request for surgery [id number] Cancer Colon Personal History 08/15/2017 Cancer Endometrium [...] On Elapsed Days Session Dose Total Dose [id number] 03/18/2018 21 267 cGy 4,005 cGy Treatment [...] was developed by a multidisciplinary team of [place] cancer providers to help you understand, discuss, [...] Medicine Breast Clinic Dr. Renee Redding/Elmira Calero [facility] Genetic Counselor Veronique Lackey Your point [...] Estrogen Receptor (ER) status positive Progesterone Receptor (IL) status positive HER2 pura protein status negative Surgical margins Clear (negative or clean) Was re-excision required? No Comments on re-excision Other pathology information [place] lymph node biopsy performed? Yes # Removed [...] F1 R breast First treatment 02/25/2018 09:27 DIRECTOR SALES AND TRADE MARKETING Last treatment 03/18/2018 09:34 DIRECTOR SALES AND TRADE MARKETING Fractions treated to date 15 Planned total [...] are largely based on guidelines from the [place] Society of Clinical Oncology (ASCO), the biggest [...] you, such as physical therapists, occupational therapists, web support engineer, or mental health care providers Coping With [...] fat tissue -Talking to a dietitian or wafer fabrication operator who can help you plan a healthy [...] may become less regular. They could be supervisor heavy equipment. Some women have short times of heavy bleeding. Sometimes, they stop all of a sudden. Hot flashes. Hot flashes are often worse at night and can affect sleep or cause mood changes. Problems with your vagina or bladder. Tissues in these areas become drier tender naphthalene and thinner. You may be more likely [...] refer to you a mental health p alexsanderfessional. x Anxiety Anxiety is a common emotion [...] your life, including relationships, school, work, and snf plans. Anger is a normal response to [...] spiritual framework. -Talk with your spiritual or vaccine key customer leader to help guide you through some of the questions raised by your illness. -Consider using the Pelt Dropper staff at [facility] to help you with your spiritual questions. x Back to Work Going back to work can be a challenging transition after cancer treatment. If you have questions about employment, ask your health care provider to refer you to a [facility] licensed clinical social worker. He or shecan give you workplace information. [...] a disability to have equal opportunities. A licensed clinical social worker can help you look at your situation [...] Health and Human Services and National Cancer [place]. (2014) Facing Forward: Life after cancer treatment. NIH Publications No. 14-6294. Resources [place] Cancer Society The [place] Cancer Society is a non-profit organization that has developed many resources for patients and families dealing with a cancer diagnosis. http://www.cancer.org National Cancer [place] The National Cancer [place] (NCI) is part of the National [place] for Health and is a governmental organization with a mission focused on cancer research and training. The NCI has developed many patient resources related to cancer. Included here is their Facing Forward which is an electronic resource focused on helping patients negotiate their lives after cancer treatment. http://www.cancer.gov http://www.cancer.gov/cancertopics/coping/bbep-innup-yvcgoujam [facility] Cancer Education Program www.[employer].org/cancer-education Cancer Support Community www.cancersupportcommunity.org/?gclid=SGsn-0-7rEKBUKjSvMsunqAY4t [facility] Living with Cancer blog www.[employer]ockit/livingwithcancer [facility] web site www.[facility] springs general hospitalNanocomp Technologies.org Resolved Problems Problem Noted Date Diagnosed Date [...]
== END 2024-01-22 08:11 | disposition home or self-care (01) ==
LOC: INJ CL 08:11
PROVIDERS: PCP Family Medicine; Visit Provider Family Medicine
DX: M47.816 Spondylosis without myelopathy or radiculopathy, lumbar region (principal)
CPT/HCPCS: 64493; 64494; J0702; Q9966

== ENCOUNTER 2024-08-20 16:43 | Emergency (ER) | payer MEDICARE, BC, SELFPAY ==
--- OUTSIDE RECORDS SUMMARY | 2024-08-20 16:47 | XMS_ITS ---
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 Problem Noted Date Diagnosed Date Gynecological Examination Normal 02/16/2022 Overview (02/16/2022): S/P total abdominal hysterectomy with bilateral salpingo-oophorectomy for endometrial cancer in 2007. Recommend follow-up every 1-2 years for gynecological exam. She no longer requires Pap smears. Cancer Breast Personal History 02/16/2022 Overview (02/18/2024): Diagnosed November, with Stage IA (cT1c, cN0, cM0, G1, ER: Positive, MN: Positive, HER2: Negative) right breast cancer. She continues annual mammography, and clinical breast exams. 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 on 02/04/2018 Overview (12/14/2017): Added automatically from request for surgery [id number] Cancer Colon Personal History 08/15/2017 Cancer Endometrium Personal History 08/15/2017 Overview (03/26/2024): She is status post laparoscopic vaginal hysterectomy with bilateral salpingo-oophorectomy and bilateral pelvic and periaortic lymphadenectomy on the January for a grade 1, stage IB endometrial cancer. Post hysterectomy cancer surveillance recommendation includes gynecological exam on an annual basis for 25 years following cancer diagnosis. Endometrial cancer surveillance exam completed today. Assessment & Plan (11/25/2019 1:53 PM CDT): [...] Pulmonary Personal History 08/05/2008 Lymphedema 04/29/2008 Current Treatment and Therapy Plans No current plan information found. Past Treatment and Therapy Plans No past plan information found. Radiation Treatments * Course 1x R breast 02/25/2018 - 03/18/2018 Treatment Period Energy Fraction Dose Fractions Total Dose Plans Planned F1 R breast 02/25/2018 - 03/18/2018 267 cGy 4,005 cGy Reference Points Delivered [id number] 02/25/2018 - 03/18/2018 4,005 cGy Treatment Summaries Malignant Neoplasm Of [...] was developed by a multidisciplinary team of [place] cancer providers to help you understand, discuss, [...] Medicine Breast Clinic Dr. Renee Redding/Elmira Calero [facility] Genetic Counselor Veronique Lackey Your point [...] Estrogen Receptor (ER) status positive Progesterone Receptor (MN) status positive HER2 pura protein status negative Surgical margins Clear (negative or clean) Was re-excision required? No Comments on re-excision Other pathology information Echo lymph node biopsy performed? 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 They could be service counter cashier. Some women have short times of heavy bleeding. Sometimes, they stop all of a sudden. Hot flashes. Hot flashes are often worse at night and can affect sleep or cause mood changes. Problems with your vagina or bladder. Tissues in these areas become rotary drier operator and thinner. You may be more likely [...] refer to you a mental health p rofessional. x Anxiety Anxiety is a common emotion [...] your life, including relationships, school, work, and mcc plans. Anger is a normal response to [...] spiritual framework. -Talk with your spiritual or salon leader to help guide you through some of the questions raised by your illness. -Consider using the Building Supplies Salesperson Retail staff at [facility] to help you with your spiritual questions. x Back to Work Going back to work can be a challenging transition after cancer treatment. If you have questions about employment, ask your health care provider to refer you to a [facility] medical social worker. He or shecan give you [...] a disability to have equal opportunities. A medical social worker can help you look at [...] Health and Human Services and National Cancer [place]. (2014) Facing Forward: Life after cancer treatment. NIH Publications No. 14-2424. Resources [place] Cancer Society The [place] Cancer Society is a non-profit organization that has developed many resources for patients and families dealing with a cancer diagnosis. http://www.cancer.org National Cancer [place] The National Cancer [place] (NCI) is part of the National [place] for Health and is a governmental organization with a mission focused on cancer research and training. The NCI has developed many patient resources related to cancer. Included here is their Facing Forward which is an electronic resource focused on helping patients negotiate their lives after cancer treatment. http://www.cancer.gov http://www.cancer.gov/cancertopics/coping/biuk-dbaky-cnosdfxya [facility] Cancer Education Program www.[facility].org/cancer-education Cancer Support Community www.cancersupportcommunity.org/?gclid=QWbx-6-7tVBSQWuJyVjqcjTM7e [facility] Living with Cancer blog www.Rain/livingwithcancer [facility] web site www.[facility].org Resolved Problems Problem Noted Date Diagnosed Date [...]
--- OUTSIDE RECORDS SUMMARY | 2024-08-20 16:47 | XMS_ITS | Clinical Summary ---
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 0 11/27/19 10 Active Cinnamon Bark (CINNAMON) 500 mg capsule Take 2 capsules by mouth once daily. 0 02/16/20 11 Active medical supply, miscellaneous (GRADUATED COMPRESSION STOCKINGS)Indicati ons:Lymphedema For personal use. Length: calf Strength: 30-40 mmHg. Measurements pending. 4 Packet 2 12/19/19 18 Active cholecalciferol (VITAMIN D) 1,000 unit capsule Take 1 capsule by mouth once daily. 1 capsule 07/02/19 19 Active trospium (SANCTURA) 20 mg tablet Take 20 mg by mouth. 03/22/20 20 Active amoxicillin (AMOXIL) 500 mg capsuleIndications :History of joint replacement, unspecified joint TAKE FOUR CAPSULES BY MOUTH 1 HOUR BEFORE DENTAL APPOINTMENT 24 capsule. 09/27/19 22 Active Blood Pressure Monitor KitIndications:Hyp ertension, unspecified type Frequency of testin times per week 1 Each 03/09/20 Active CPAPIndications:OS A (obstructive sleep apnea) CPAP machine for home [...] months, Frequency of use: Daily 1 Each 04/20/20 23 Active potassium chloride (KLOR-CON M10) 10 mEq extended-release tablet (part/cryst)Indica tions:Bilateral lower extremity edema Take 1 Tablet (10 mEq) by mouth once daily with a meal. 90 Tablet 3 04/08/20 24 Active piroxicam (FELDENE) 20 mg capsuleIndications :Mastodynia Take 1 Capsule (20 mg) by mouth once daily with a meal. 90 Capsule 3 04/08/20 24 Active metFORMIN (GLUCOPHAGE XR) 500 mg Extended-Release tabletIndications: Prediabetes Take 1 Tablet (500 mg) by mouth once daily with evening meal. 90 Tablet 3 04/08/20 24 Active losartan (COZAAR) 100 mg tabletIndications: Hypertension, unspecified type Take 1 Tablet (100 mg) by mouth once daily. 90 Tablet 3 04/08/20 24 Active furosemide (LASIX) 20 mg tabletIndications: Bilateral lower extremity edema Take 1 Tablet (20 mg) by mouth once daily in the morning. 90 Tablet 3 04/08/20 24 Active atorvastatin (LIPITOR) 20 mg tabletIndications: Hyperlipidemia, unspecified hyperlipidemia type Take 1 Tablet (20 mg) by mouth once daily with evening meal. 90 Tablet 3 04/08/20 24 Active CPAPIndications:OS A (obstructive sleep apnea) CPAP (E0601) machine for home use at pressure: 5-16 , Choice of mask (A7030 or A7034) w/full face cushion (A7031) x1/mo, nasal cushion (A7032) x2/mo, or nasal pillows (A7033) x 2/mo; Length of Need: 99 months; Frequency of use: Daily 1 Each 06/06/19 25 Active tirzepatide 15 mg/0.5 mL penIndications:Mor bid obesity (HC),Prediabetes Inject 15 mg subcutaneous once weekly. 2 mL 5 08/20/19 25 Active tirzepatide (MOUNJARO) 12.5 mg/0.5 mL penIndications:Mor bid obesity (HC) Inject 12.5 mg subcutaneous once weekly. 6 mL 1 05/20/19 25 025 Discontin ued(Reord er (E-cancel not sent)) tirzepatide (weight loss) (Zepbound) 15 mg/0.5 mL penIndications:Mor bid obesity (HC) Inject 15 mg subcutaneous once weekly. 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/29/2008 01/09/2012 Other lymphedema 04/29/2008 02/17/2019 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 03/01/2021 terminologist (current) use of anticoagulants 04/29/2008 01/09/2012 Encounters Date Type Department Care Team Description 07/24/2024 Telephone [facility] [address] [place] [address] Wil House DO Screening (Injection Prescreening- Lumbar MBB) 07/23/2024 11:00 AM CDT Office Visit [facility] [place] [address] [facility] [address] [place] [address] Wil House DO Consult (Low back pain ) 07/23/2024 Travel 07/20/2024 Travel 07/18/2024 Travel 07/08/2024 Telephone [facility] [address] [facility] [address] [place] [address] Wil House DO Screening (Spine Center Screening ) 06/06/2024 12:15 PM PREPARING BOX TENDER Telemedicine [facility] [address] [place] [address] [address] [place] [phone] Nanette Carpio, LEATHER CRAFTER Telehealth 06/02/2024 Travel from Last 3 Months Immunizations Immunization Administration Dates Next Due AMB INFLUENZA IIV3 (AGE 65+ YRS) PF (Flu Clinic Only) 02/02/2017 AMB Influenza, IIV3 (Age >=3 years)(Flu Clinic Only) 01/22/2013 Amb Influenza, Inact (High-d ose Quadrivalent) (Flu Clinic Only) 01/09/2020 Amb Influenza, Inact (High-d ose) (Flu Clinic Only) 02/05/2016,02/11/2015 COVID-19 VACCINE COMIRNATY (PFIZER-BIONTECH 30MCG/0.3ML) 12YO+ PFS 01/23/2023 COVID-19 VACCINE SPIKEVAX (M ODERNA 50MCG/0.5ML) 12YO+ PFS 01/17/2024,07/24/2023 COVID-19 vaccine (Moderna 100mcg/0.5mL) PF, MDV 07/10/2020,06/10/2020 [...] Influenza Virus, Unspecified 01/22/2011 Influenza, High-dose Inactivated 01/17/2024,10/0 04/2017,01/26/2014 Influenza, IIV3 (Age 6-35 mos) 01/14/2009,2007 Influenza, [...] Given: No Alcohol Use Standard Drinks/Week Comments Not Currently 0 (1 standard drink = 0.6 oz pur e alcohol) rarely PHQ-2 Answer Date Recorded PHQ-2 TOTAL SCORE 0 04/08/2024 Social Connections Answer Date Recorded Do you often feel lonely or isolated from those around you? 0 04/08/2024 Financial Resource Strain Answer Date R ecorded Difficulty of Paying Living Expenses 3 04/08/2024 Difficulty of Paying Living Expenses Not on file 04/08/2024 Food Insecurity Answer Date Recorded Do you worry your food will run out before you are able to buy more? 1 04/08/2024 Transportation Needs Answer Date Record ed Does lack of transportation keep you from medica l appointments? 1 04/08/2024 Does lack of transportation keep you from work, meetings or getting things that you need? 1 04/08/2024 Housing Stability Answer Date Recorded What is your housing situation today? 1 04/08/2024 Utilities Answer Date Recorded Do you have trouble paying f or utilities (for example, heat, electricity, water, phone)? 1 04/08/2024 Comments No Sex and Gender Information Value Date Recorded Sex Assigned at Not on file Legal Sex Female 5:40 AM PREPARING BOX TENDER Gender Identity Not on file Sexual Orientation Not on file Travel History Travel Start Travel End [place] 07/18/2024 07/21/2024 Obstetrics History Last Filed Vital Signs Vital Sign Reading Time Taken Comments Blood Pressure 140/70 07/23/2024 10:59 AM CDT Pulse 63 07/23/2024 10:59 AM CDT Temperature 36.9 C (98.4 F) 11/29/2022 2:16 PM CDT Respiratory Rate 16 07/23/2024 10:59 AM CDT Oxygen Saturation 96% 07/23/2024 10:59 AM CDT Inhaled Oxygen Concentration - - Weight 119.7 kg (264 lb) 07/23/2024 10:59 AM CDT Height 169 cm (5' 6.54) 07/23/2024 10:59 AM CDT Body Mass Index 41.92 07/23/2024 10:59 AM CDT Plan of Treatment Health Maintenance Due Date Last Done Comments COVID-19 vaccine series ( season) 2024 01/17/2024, 07/24/2023, 01/23/2023, Additional history exists Depression screening for age 12+ 04/08/2025 04/08/2024, 03/27/2023, 03/09/2022, Additional history exists Medicare Wellness for age 65+ 04/09/2025, 03/27/2023, 03/09/2022, Additional history exists BMI (ht and wt on same day) for age 18+ 07/23/2025 07/23/2024, 04/08/2024, 03/27/2023, Additional history exists Colonoscopy through age 75 02/08/202602/08, 02/08/2021, 02/08/2021, Additional history exists Tetanus booster 10/27/2026 10/27/2016, 09/27/2006 Lipids for age 45-75 03/31/2029 03/31/2024, 03/20/2023, 03/03/2022, Additional history exists Tdap Completed 09/27/2006 DEXA/DXA scan for age 65+ Completed 03/12/2014 Hepatitis C screening for ag e 18-79 Completed 07/13/2015 Zoster (shingles) series for age 50+ Completed 09/23/2018, 07/22/2018, 05/24/2018, Additional history exists Pneumococcal series for age 50+ Completed 10/04/2022, 07/29/2015, 03/06/2014, Additional history exists RSV vaccine for adults or Completed 01/23/2023 Influenza Vaccine Completed 01/17/2024, , 01/01/2022, Additional history exists Procedures Procedure Name Priority Date/Time Associated Diagnosis Comments LIPID PANEL W REFLEX MEASURED LDL Routine 03/31/2024 11:11 AM PREPARING BOX TENDER Mixed hyperlipidemia COLONOSCOPY SCREENING Routine 02/08/2021 8:39 AM CDT Polyp of colon, unspecified part of colon, unspecified type ANTI HCV Routine 07/13/2015 11:05 AM CDT Need for hepatitis C screening test XR DXA BONE DENSITY 2 SITES AXIAL Routine 03/12/2014 11:18 AM PREPARING BOX TENDER Osteoporosis from Last 3 Months or Most Recently Relevant to Health Maintenance Results * LIPID PANEL W REFLEX MEASURED LDL (03/31/2024 11:11 AM PREPARING BOX TENDER) CHOLESTEROL, TOTAL 159 <200 mg/dL [facility] HDL CHOLESTEROL 57 > OR = 50 mg/dL [facility] TRIGLYCERIDES 91 <150 mg/dL [facility] LDL-CHOLESTEROL 83 mg/dL (calc) [facility] Comment: Reference range: <100 Desirable range <100 mg/dL for primary prevention; <70 mg/dL for patients with CHD or diabetic patients with > or = 2 CHD risk factors. LDL-C is now calculated using the Sheldon-Ilia calculation, which is a validated novel method providing better accuracy than the Friedewald equation in the estimation of LDL-C. Sheldon SS et al. LYSSA. 2013;310(19): 5813-0389 (http://education.StraighterLine/faq/SSO441) CHOL/HDLC RATIO 2.8 <5.0 (calc) [facility] NON HDL CHOLESTEROL 102 <130 mg/dL (calc) [facility] Comment: For patients with diabetes plus 1 major ASCVD risk factor, treating to a non-HDL-C goal of <100 mg/dL (LDL-C of <70 mg/dL) is considered a therapeutic option. Blood BLOOD SPECIMEN / Unknown 03/31/2024 11:11 AM PREPARING BOX TENDER 03/31/2024 11:12 AM PREPARING BOX TENDER Maurizio Moreno MD CHEMISTRY Final Result [facility] [address] [place] [address], [facility] [address] [place] [address] * COLONOSCOPY (02/08/2021 8:48 AM CDT) 02/08/2021 8:48 AM CDT Narrative Transcriptions Sheldon Love MD - 02/08/2021 10:06 AM CDT Patient Name: Melita Sousa Procedure Date: 02/08/2021 Gender: Female Date of [...] adequate candidate for conscious sedation. The [id number] was passed through the anus and advanced [...] 8:48 AM Procedure Code(s): --- Professional --- 58688, Colonoscopy, flexible; with removalof tumor(s), polyp(s), or other lesion(s) bysnare technique Diagnosis Code(s): --- Professional --- Z85.038, Personal history of other malignant neoplasm of large intestine K63.5, Polyp of colon Z98.0, Intestinal bypass and anastomosisstatus CPT copyright 2020 [employer] [employer]. All rights reserved. The codes documented in this report are preliminary and upon applications systems engineer reviewmay be revised to meet current compliance requirements. Scope In: 9:34:49 AM Scope Withdrawal Time 0 hours 12 minutes 23 seconds Scope Out: 9:59:26 AM us Sheldon Love MD PROCEDURE ORD Final Res ult * ANTI HCV (07/13/2015 11:05 AM CDT) HEPATITIS C ANTIBODY Non-Reacti ve Non-Reacti ve 07/13/2015 6:02 PM CDT [facility] Blood specimen (specimen) BLOOD SPECIMEN / Unknown Butterfly / Unknown 07/13/2015 11:05 AM CDT 07/13/2015 11:05 AM CDT Narrative [facility] - 07/13/2015 6:02 PM CDT Antibodies to HCV not detected; does not exclude the possibility of exposure to HCV. us Maurizio Moreno MD SEND OUTS Final Result [facility] [address] [place] [address], [place] * XR DXA BONE DENSITY 2 SITES (03/12/2014 11:18 AM PREPARING BOX TENDER) Anatomical Region Laterality Modality Spine, HIPS, HIPL, HIPR Other Narrative 03/23/2014 2:06 PM PREPARING BOX TENDER Please see scanned document for results of this study. Procedure Note Shannan Cole PA - 03/23/2014 Please see scanned document for results of this study. us Maurizio Moreno MD DEXA Final Result from Last 3 Months or Most Recently Relevant to [place] [address] MEDICARE PB ONLY [facility] MEDICARE PART A HB ONLY MEDICARE PART B HB ONLY [place] [phone] MEDICARE PB ONLY MEDICARE PART B HB ONLY Member Subscriber Plan / Payer ( fective 2013-Present) Name:Melita Sousa Member ID:[id number] Relation to Subscriber:Self Name:JailynMelita Subscriber ID:[id number] Payer ID:Not on file Group ID:NONE Type:Not on file Address: ATTN: CLAIMS [address] [facility] FED EMP Advance Directives Documents on File Type Date Recorded 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
--- OUTSIDE RECORDS SUMMARY | 2024-08-20 16:47 | XMS_ITS | Clinical Summary ---
Author Organization [facility] Address [address] [place] [id number] Care Team Providers Care Independent Contractor Name Role Phone Elsewhere, Pcp Primary Care Provider Unavailabl e Source Comments Patient records contain information from all sites at [facility]. For routine questions regarding patient records, call [phone] during business hours, M-F 8:00 AM - 5:00 PM Central Time. Record requests for emergency care only can be directed to [phone] at any time.[facility] Allergies Active Allergy Reactions Criticality Noted Date Comments Clams GI intolerance Medium 10/12/2008 Projectile vomiting Lisinopril Cough Medium 10/27/2016 Oxycodone-Acetaminophen Anxiety 08/15/2017 Medications * This document contains information received from the source organization and may not represent a complete record from that organization. atorvastatin (LIPITOR) 20 mg tablet Take 20 mg by mouth daily. 7 Active cholecalciferol (VITAMIN D3) 1,000 Unit capsule Take 1 tablet by mouth daily. 4 Active cinnamon bark 500 mg capsule Take 1,000 mg by mouth daily. 1 Active docusate sodium (COLACE) 100 mg capsule Take 100 mg by mouth as needed for constipation . 4 Active multivit-min/iro n/folic/lutein (CENTRUM SILVER WOMEN ORAL) Take 1 tablet by mouth daily. 1 Active piroxicam (FELDENE) 20 mg capsule Take 1 capsule by mouth daily. 1 Active metFORMIN XR (GLUCOPHAGE-XR) 500 mg 24 hr tablet Take 1 tablet by mouth daily. 2 Active DME Gradient compression garments & suppliesIndicati ons:Lymphedema DME Order Open Toe 4 Unspecified 2 Active losartan (COZAAR) 100 mg tablet 3 Active potassium chloride (KLOR-CON M) 10 mEq ER tablet Take 10 mEq by mouth daily with breakfast. 3 Active furosemide (LASIX) 20 mg tablet Take 20 mg by mouth daily. 3 Active losartan (COZAAR) 50 mg tablet Take 50 mg by mouth daily. 3 Active tirzepatide (MOUNJARO) 15 mg/0.5 mL pen injector injection Inject 15 mg under the skin over 168 hr. 4 Active trospium (Sanctura) 20 mg tablet Take 1 tablet (20 mg total) by mouth 2 (two) times a day before morning and evening meals. 180 tablet 3 5 Active Active Problems Problem Noted Date Diagnosed Date Gynecological Examination Normal 02/16/2022 Overview (02/16/2022): S/P total abdominal hysterectomy with bilateral salpingo-oophorectomy for endometrial cancer in 2007. Recommend follow-up every 1-2 years for gynecological exam. She no longer requires Pap smears. Cancer Breast Personal History 02/16/2022 Overview (02/18/2024): Diagnosed November, with Stage IA (cT1c, cN0, cM0, G1, ER: Positive, WV: Positive, HER2: Negative) right breast cancer. She continues annual mammography, and clinical breast exams. 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 on 02/04/2018 Overview (12/14/2017): Added automatically from request for surgery [id number] Cancer Colon Personal History 08/15/2017 Cancer Endometrium [...] Encounters Date Type Department Care Team Description 06/10/2024 10:30 AM AGRICULTURAL EXTENSION SPECIALIST Office Visit Department of Urology in [place], [place] [address], [place] [address] Nicolasa Fields APRN, C.N.P. Overactive Bladder (Primary Dx); Constipation 05/26/2024 10:00 AM AGRICULTURAL EXTENSION SPECIALIST Procedure visit Department of Urology in [place], [place] [address], [place] [address] Schuyler Livingston M.D. Hypertonic Bladder (Primary Dx); Urinary Urge Incontinence from Last 3 Months Immunizations Immunization Administration Dates Next Due H1N1 Inj 04/06/2009 [...] Chris Cabezas Father's Brother 1 Fran Cabezas Alive Father's Brother 2 Jeremiah Cabezas Alive Father's Sister Mattie Castillo Alive Maternal Grandfather Maternal Grandmother Mother Chanelle Cabezas Mother's Brother 1 Alonso Brenda Alive Mother's Brother 2 Sigmund Chojnacki Alive Mother's Brother 3 Iain Chojnacki Alive Mother's Sister Mira Oneil Alive Paternal Grandfather Paternal Grandmother Sister 1 Alive [...] 0.6 oz pur e alcohol) Rarely drink. [facility] Utilities Answer Date Recorded In the [...] often do you attend chur ch or lutheran services? 1 to 4 times per year 09/04/2022 Do you belong to any clubs o r organizations such as hindu groups, unions, fraternal or athletic groups, or [...] PHQ-2 Answer Date Recorded PHQ-2 Score 0 02/18/2024 [facility] Stem of Occupat ional Health - Occupational Stress [...] Master's degree (e.g., MA, MS, Enrique, MEd, DRAWING INSTRUCTOR, ALLYN) 01/09/2019 Comments No Sex and Gender Information Value Date Recorded Sex Assigned at Female 09/19/2017 7:29 PM CDT Legal Sex Female 5:53 AM AGRICULTURAL EXTENSION SPECIALIST Gender Identity Female 09/19/2017 7:29 PM CDT Sexual Orientation Straight 09/19/2017 7: 29 PM CDT Last Filed Vital Signs Vital Sign Reading Time Taken Comments Blood Pressure 125/78 02/18/2024 11:57 AM CDT Pulse 75 02/18/2024 11:57 AM CDT Temperature 37 C (98.6 F) 12/06/2020 1:49 PM CDT Respiratory Rate 20 11/25/2019 12:44 PM CDT Oxygen Saturation 95% 12/06/2020 1:49 PM CDT Inhaled Oxygen Concentration - - Weight 122 kg (268 lb 4.8 oz) 02/18/2024 11:57 A M CDT Height 168.5 cm (5' 6.34) 03/29/2023 3:04 PM CS T Body Mass Index 42.86 03/29/2023 3:04 PM AGRICULTURAL EXTENSION SPECIALIST Plan of Treatment Health Maintenance Due Date Last Done Comments CT Colonography 1950 Cologuard 1950 Hepatitis C Screening 1950 Creatinine Level (Kidney Function Test) 03/20/2024 03/20/2023, 10/17/2022, 10/04/2022, Additional history exists Potassium Level 03/20/2024 03/20/2023, 09/22, 10/04/2022, Additional history exists Sodium Level 03/20/2024 03/20/2023, 09/22, 10/04/2022, Additional history exists Depression Screening (Annual PHQ-2) 04/23/2024 Fall Risk Screen (Annual) 04/23/2024 COVID-19 Vaccine (10 - Mixed Product risk season) 2024 01/17/2024, 07/24/2023, 01/23/2023, Additional history exists Office Visit for Blood Pressure Check / Re-check 02/17/2025 02/18/2024 Mammogram 03/31/2025 03/31/2024, 12/0 12/2023, 03/29/2023, Additional history exists Colonoscopy 02/08/2026 02/08/2021, 01/21, [...] Completed 12/15/2016, 06/03/19 Zoster Vaccines Completed 09/23/2018, 0404/2018, 05/24/2018, Additional history exists Bone Density Scan (Osteoporosis Screen) Discontinued 03/01/2022 Pneumococcal vaccine (50+ years) Completed 10/05/2022, 07/29/2015, 03/06/2014 RSV vaccine - (32-36 weeks) or 60+ years Completed 01/23/2023 Influenza Vaccine Completed 01/17/2024, , 01/01/2022, Additional history exists HPV Vaccines Aged Out No longer eligi ble based on patient's age to complete this topic IPV Vaccines Aged Out No longer eligi ble based on patient's age to complete this topic Medical Devices Implanted Type Area Inspector Open Die Device Identifier Shelf Expiration Date Model / Serial / Lot Clp Hrzn Ti 6 Demetrius Tapia Dank - [id number] Implanted:Qty: 1 on 12/31/2017 by Monica Contreras M.D. at [facility] Hardware e.g. pins/screw s/rods [employer] [id number] / / Clp Hrzn Ti 6 Demetrius Red - [id number] Implanted:Qty: 1 on 12/31/2017 by Monica Contreras M.D. at [facility] Hardware e.g. pins/screw s/rods Weck (Div of Cool Containers) [id number] 07/21/2022 1201 / / [id number] J Gabo Keel Tray Tib Mb Sz 4.0 - Wright [id number] Implanted:Qty: 1 on 04/12/2010 Knee Implant Other/Legacy - See Implant Description [employer] Description:Device Manufactu rer - J [employer]. Body Location - Other. Right. Device Status Text - [id number] [id number]. Sigma Post Stab.W Lug Fem Sz 4n Rt - Wright [id number] Implanted:Qty: 1 on 04/12/2010 Knee Implant Other/Legacy - See Implant Description [employer] Description:Device Manufactu rer - J [employer]. Body Location - Other. Right. Device Status Text - KNEE [id number]. J J Tib Insert Sigma 4x12.5 - Wright [id number] Implanted:Qty: 1 on 04/12/2010 Knee Implant Other/Legacy - See Implant Description [employer] Description:Device Manufactu rer - J [employer]. Body Location - Other. Right. Device Status Text - KNEE [id number]. J J Sig Patella Oval 38 - Wright [id number] Implanted:Qty: 1 on 04/12/2010 Knee Implant Other/Legacy - See Implant Description [employer] Description:Device Manufactu rer - J [employer]. Body Location - Other. Right. Device Status Text - KNEE [id number]. Patch Dual Mesh 1mm 20.0 X 30 - Wright [id number] Implanted:Qty: 1 on 01/13/2009 Mesh or Patch Other/Legacy - See Implant Description [employer] Description:Device Manufactu rer - [employer] Body Location - ?. Not Applicable. Device Status Text - [id number]. Cement Bone Large - Wright [id number] Implanted:Qty: 1 on 04/12/2010 Misc Other [place] Description:Device Manufactu rer - Chelle Fabiola.. Device Status Text - [id number]. Cement Bone Small - Wright [id number] Implanted:Qty: 1 on 04/12/2010 Misc Other [place] Description:Device Manufactu rer - Chelle Fabiola.. Device Status Text - [id number]. Procedures Procedure Name Priority Date/Time Associated Diagnosis Comments URO CYSTO W/BOTOX Routine 05/26/2024 10:00 AM AGRICULTURAL EXTENSION SPECIALIST Urinary Urge Incontinence BI BREAST DIAGNOSTIC BILATERAL WITH TOMOSYNTHESIS RAD - Routine (most inpatients and all outpatients) 03/29/2023 10:56 AM AGRICULTURAL EXTENSION SPECIALIST Screening Mammogram Breast Cancer from Last 3 Months or Most Recently Relevant to Health Maintenance Results * Cysto w/botox (05/26/2024 10:00 AM AGRICULTURAL EXTENSION SPECIALIST) Narrative Schulyer Livingston M.D. - 05/26/2024 10:00 AM AGRICULTURAL EXTENSION SPECIALIST Schuyler Livingston M.D. 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 PROCEDURE Cystoscopy with injection of intravesical botulinum toxin. (CPT code 45966) MEDICATION Botulinum toxin 100 units mixed with [...] was injected into the urethra. A rigid 22-Telugu Olympus cystoscope with 30-degree lens was utilized for the procedure. Normal saline was used as an irrigant. A cystoscope needle was used for the procedure. The 100 units of botulinum toxin was injected in equally divided aliquots. Approximately 9 to 10 injection sites were utilized in a 3-row pattern, sparing the trigone and the ureteral orifices. After this was completed, the bladder was drained and the procedure concluded. The patient tolerated the procedure well. The patient normally tolerates her procedure well and will return in a few weeks to follow-up. She will complete her existing antibiotics. Electronically signed by: Schuyler Livingston M.D. 05/26/24 10:28 AM AGRICULTURAL EXTENSION SPECIALIST Nicolasa Fields APRN C.N.P. UROLOGY ORDERABLE S Final Result * BI Breast Diagnostic Bilateral with Tomosynthesis (03/29/2023 10:56 AM AGRICULTURAL EXTENSION SPECIALIST) Anatomical Region Laterality Modality Breast, Breast Imaging RST L OS, Breast Imaging ARZ LOS, Breast Imaging FLA LOS Bilateral Mammography 03/29/2023 11:0 6 AM AGRICULTURAL EXTENSION SPECIALIST Impressions 03/29/2023 11:18 AM AGRICULTURAL EXTENSION SPECIALIST No mammographic findings of malignancy. RECOMMENDATION: Annual Screening Mammogram ASSESSMENT: BI-RADS: 2: Benign. Narrative 03/29/2023 11:18 AM AGRICULTURAL EXTENSION SPECIALIST EXAM: BI BREAST DIAGNOSTIC BILATERAL WITH TOMOSYNTHESIS [...] Annual Screening Mammogram ASSESSMENT: BI-RADS: 2: Benign. us Carol Brambila APRN, C.N.P., M.P.H., M.S.N. IMG B I PROCEDURES Final Result from Last 3 Months or Most Recently Relevant to Health Maintenance [place] [address] MEDICARE [facility] Advance Directives For more information, please contact: [phone] * Full Code (Latest Code Status on File) Date Activated Date Inactivated Comments 12/31/2017 8:57 AM 12/31/2017 7:23 PM Question Answer Comments Full Code: Not Discussed Due to: Not medically appropriate Care Teams Independent Contractor Relationship Specialty Start Date End Date Elsewhere, Pcp PCP - General Internal Medicine 01/04/23
[2024-08-20 16:49] VITALS: BP 161/106; PULSE 79; RESP 18; TEMP 37.2; O2SAT 96; BMI 41.0
--- NOTE | 2024-08-20 16:57 | CRLHL7_ITS ---
For Patients: As a result of the Cures Act, medical imaging exams and procedure reports are released immediately into your electronic medical record. You may view this report before your referring provider. If you have questions, please contact your health care provider. INDICATION: Wrist injury, caught under sink COMPARISON: None. TECHNIQUE: Three radiographic view(s) of the right wrist. FINDINGS: No evident acute displaced fracture. Moderate degenerative change of the 1st CMC joint. [id number] degenerative change of the distal radioulnar joint. Mild degenerative change of the triscaphe joint. No substantial degenerative change of the radiocarpal joint. IMPRESSION: No evident acute displaced fracture. Degenerative changes as described. Dictated by Arvind Torres MD @ 08/20/2024 6:10:20 PM (Electronically Signed)
--- NOTE | 2024-08-20 17:54 | ED.GENADULT ---
HPI - General Adult General Date Seen: 08/20/24 Chief complaint: Extremity Pain/Injury, Upper Stated complaint: Right wrist pain Time Seen by Provider: 08/20/24 16:58 History of Present Illness HPI narrative: 73 yo F presenting to the emergency department for right wrist pain. Patient states that she was trying to carry a 70 lb sink in her garage and loaded in the trunk of her car. As she was lifting up this afternoon the handle on the box of the sink broke. The weight of the sink it was as it was falling awkwardly shifted and posterior off balance and so she fell. She reached her right hand out to break her fall and had a FOOSH type injury. She injured her right wrist but had no other injury from the fall. She did not injure her elbow or upper arm or shoulder. She did not hit her head or injure her neck. She does not have any pain in her hip, back, or pelvis. She does have significant pain with swelling over the distal radius. Range of motion is limited by pain. She has no numbness in her hand. Related Data Home Medications ?Medication ?Instructions ?Recorded ?Confirmed atorvastatin 20 mg tablet 20 mg PO DAILY 03/05/23 08/20/24 furosemide 20 mg tablet 20 mg PO DAILY 03/05/23 08/20/24 losartan 100 mg tablet 100 mg PO DAILY 03/05/23 08/20/24 metformin 500 mg tablet,extended 500 mg PO DAILY 03/05/23 08/20/24 release 24 hr piroxicam 20 mg capsule 20 mg PO DAILY 03/05/23 08/20/24 potassium chloride 10 mEq 10 meq PO DAILY 03/05/23 08/20/24 tablet,extended release(part/cryst) Previous Rx's ?Medication ?Instructions ?Recorded triamcinolone acetonide 0.025 % 1 applic topical BID #80 grams 07/26/23 topical cream tramadol 50 mg tablet 50 mg PO Q8H PRN pain #14 tabs 08/20/24 Allergies Allergy/AdvReac Type Severity Reaction Status Date / Time lisinopril Allergy Mild Cough Verified 08/20/24 16:49 oxycodone (From Percocet) Allergy Mild skin Verified 08/20/24 16:49 crawling clams Allergy Unknown Verified 08/20/24 16:49 acetaminophen (From Percocet) Allergy Verified 08/20/24 16:49 PFSH PFSH Medical History (Updated 08/20/24 @ 18:28 by Sven Venegas MD) Subconjunctival hemorrhage of right eye ?H11.31 - Conjunctival hemorrhage, right eye (ICD-10) Exam Narrative: Exam Narrative: Constitutional: Appears well-developed and well-nourished. Alert. Conversant. Non toxic. HENT: Head: Atraumatic. No depressed skull fracture, Raccoon Eyes, Loyola's sign, or hemotympanum. Face normal. TMs normal Nose: Nose normal. Mouth/Throat: Oral mucosa is clear and moist. no trismus. Eyes: Conjunctivae normal. EOM normal. Pupils equal, round, and reactive to light. No scleral icterus. Neck: Normal range of motion. Neck supple. No tracheal deviation present. No posterior midline tenderness Cardiovascular: Normal rate, regular rhythm. No gallop. No friction rub. No murmur heard. Symmetric radial artery pulses . Normal distal cap refill. Pulmonary/Chest: Effort normal. No stridor. No respiratory distress. No wheezes. No rales. No rhonchi . No tenderness. Abdominal: Soft. No distension. No mass. No tenderness. No rebound. No guarding. Musculoskeletal: RUE: Clavicle, shoulder, proximal humerus, humeral shaft, biceps, triceps, elbow are nontender. She has intact elbow flexion and extension. Proximal forearm is nontender. Pronation/supination of the forearm are limited by her wrist pain. She does have wrist tenderness and swelling especially over the distal radius. No tenderness over snuffbox, thenar eminence, hypothenar eminence, body the hand, thumb, fingers. Intact radial, median, ulnar nerve sensory and motor function. Normal distal cap refill. LUE: Normal range of motion. No tenderness. No deformity RLE: Normal range of motion. No edema. No tenderness. No deformity LLE: Normal range of motion. No edema. No tenderness. No deformity Neurological: Alert and oriented to person, place, and time. Normal strength. CN II-VII intact. No sensory deficit. GCS eye subscore is 4. GCS verbal subscore is 5. GCS motor subscore is 6. Normal coordination Skin: Skin is warm and dry. No rash noted. No pallor. Normal capillary refill. Psychiatric: Normal mood. Normal affect. Const: Vital Signs, click to edit/add: Vital Signs - 24 hr 08/20/24 16:49 Temperature 99 F Pulse Rate [Pulse Oximeter] 79 Respiratory Rate 18 Blood Pressure [Ri ght Upper Arm] 161/106 H Pulse Oximetry 96 Oxygen Delivery Me thod Room Air Course Vital Signs Vital signs: Initial Vital Signs Temperature 99 F 08/20/24 16:49 Temperature Source Temporal Artery Scan 08/20/24 16:49 Pulse Rate 79 08/20/24 16:49 Respiratory Rate 18 08/20/24 16:49 Blood Pressure 161/106 H 08/20/24 16:49 Blood Pressure Mean 124 H 08/20/24 16:49 Blood Pressure Position Sitting 08/20/24 16:49 Pulse Oximetry 96 08/20/24 16:49 Oxygen Delivery Method Room Air 08/20/24 16:49 Vital Signs Temperature 99 F 08/20/24 16:49 Pulse Rate 79 08/20/24 16:49 Respiratory Rate 18 08/20/24 16:49 Blood Pressure 161/106 H 08/20/24 16:49 Pulse Oximetry 96 08/20/24 16:49 Oxygen Delivery Method Room Air 08/20/24 16:49 Temperature 99 F 08/20/24 16:49 Pulse Rate 79 08/20/24 16:49 Respiratory Rate 18 08/20/24 16:49 Blood Pressure 161/106 H 08/20/24 16:49 Pulse Oximetry 96 08/20/24 16:49 Oxygen Delivery Method Room Air 08/20/24 16:49 Medical Decision Making [facility] Narrative Medical decision making narrative: Pleasant 73-year-old female presenting to the ER today with injuries after mechanical trip and fall. She has an injury isolated to her right wrist in particular on the distal radial side and on the volar wrist. On my clinical exam and suspicious for fracture. There is not a ?dinner fork? deformity to suggest a Colles fracture. X-rays of the wrist obtained an IP and do show a subtly impacted distal radius fracture possibly with a subtle step-off in the distal articular surface of the radius. In radiology interpreted the x-ray is that they are normal. She I will place the patient into a short-arm splint to immobilize her wrist. Also you give her a sling for comfort. She will follow-up with orthopedics for repeat wrist evaluation on Sunday. Discussed briefly with the on-call orthopedic provider, ANIVAL Salgado. he agrees that she would be safe for outpatient follow-up in clinic and if there is truly an intra-articular fracture, they can not determine at the time of follow-up whether not she needs surgery. Prescription for tramadol provided. She has tolerated this better than other pain killers in the past. Procedure: Right forearm short-arm splint placement Indication right wrist injury, probable distal radius fracture Patient's forearm was padded using cotton padding. Using 3 in fiberglass we placed a short-arm splint to immobilize the distal radius and thumb. Patient tolerated the splinting well and reports satisfactory comfort and positioning. After splint placement she remains neurovascularly intact. Careful attention was paid to make sure the splint was formed to her arm and there were no rubbing areas Imaging Data XR wrist: Attestation: I have reviewed the pertinent imaging results. My impression: Suspected nondisplaced, impacted distal radius fracture Radiologist's impression: IMPRESSION: No evident acute displaced fracture. Degenerative changes as described. Discharge Plan Discharge Clinical Impression: Fracture of wrist Patient Disposition: Home, Self-Care Condition: Stable Instructions: Wrist Fracture in Adults (ED), Splint Care (ED) Additional Instructions: As we discussed, please keep the splint clean and dry. Use an ice pack on the outside of the splint for 20 minutes every few hours to help reduce pain and swelling. Use Tylenol or ibuprofen if needed for pain and if you have pain uncontrolled by those meds, you can take tramadol. Be careful because tramadol old can cause dizziness and drowsiness. Please follow-up with the [facility] orthopedic [facility] in 2 days for recheck. Call [phone] tomorrow to make an appointment. Return to the ER right away if you have any concerns such as worsening or uncontrolled pain in your wrist or pallor or numbness in your hand. Prescriptions: New tramadol 50 mg tablet 50 mg PO Q8H PRN (Reason: pain) Qty: 14 0RF No Action atorvastatin 20 mg tablet 20 mg PO DAILY piroxicam 20 mg capsule 20 mg PO DAILY potassium chloride 10 mEq tablet,ER particles/crystals 10 meq PO DAILY metformin 500 mg tablet extended release 24 hr 500 mg PO DAILY losartan 100 mg tablet 100 mg PO DAILY furosemide 20 mg tablet 20 mg PO DAILY triamcinolone acetonide 0.025 % cream 1 applic topical BID Qty: 80 1RF Follow Up/Referrals: Maurizio Moreno MD [Primary Care Provider] - Stand Alone Forms: [employer] Info Instructions
--- OUTSIDE RECORDS SUMMARY | 2024-08-20 18:40 | XMS_ITS | Data Portability ---
Author Organization [place] - [facility], Main Office Address [address] [place] [address] Assessment Encounter Date Assessment Date Assessment LastModified by Organization Details LastModified Time 01/23/2022 01/23/2022 1. Sebaceous gland hyperplasia here for cosmetic treatment discussed pain discomfort downtime no guaranteed outcomes. Scarring. Anesthetized 1% lidocaine with epinephrine hyfrecated gently with 1.2 setting 1 rarely 2 passes to the areas. Total of 15 lesions. We curetted off the involved seborrheic keratosis. Total charge $100 Follow-up as needed. API-69 Not available 01/24/2022 00:04:10 Plan of Treatment Reminders Order Date Submit Date Provider Last Modified By Organization Details Last Modified Time Details Appointments None record ed. Lab None record ed. Referral None record ed. Procedures None record ed. Surgeries None record ed. Imaging None record ed. Medication Orders None record ed. Patient TargetsNo targets recorded. Patient InstructionsNo instructions recorded. Reason for Referral None Reported. Medical Equipment None Reported. Medications Name Sig Start Date Stop Date Status Note LastModified by Organization Details LastModified Time losartan 50 mg tablet TAKE 1 TABLET BY MOUTH EVERY DAY active Not Available Not Available No t Available amoxicillin 500 mg capsule TAKE 4 CAPSULES BY MOUTH 1 HR BEFORE DENTAL APPOINTMENT active Not Available Not Available Not Available anastrozole 1 mg tablet active Not Available Not Available Not Available atorvastatin 20 mg tablet active Not Available Not Available Not Available ciprofloxaci n 250 mg tablet active Not Available Not Available Not Available ciprofloxaci n 500 mg tablet START 48 HOURS PRIOR TO PLANNED PROCEDURE active Not Available Not Available No t Available cefdinir 300 mg capsule active Not Available Not Available N ot Available piroxicam 20 mg capsule active Not Available Not Available N ot Available metformin ER 500 mg tablet,exten ded release 24 hr active Not Available Not Available Not Available trospium 20 mg tablet active Not Available Not Available No t Available Vitals None Recorded Social History None recorded. Functional Status None recorded. Mental Status None recorded. Family History Nothing Reported. Medical History No medical history recorded. Gynecological HistoryNo gynecological history recorded. Obstetrics History GPAL:G 0 P 0 0 0 0 Past Encounters Encounter ID Performer Location Encounter Start Date Encounter Closed Date Diagnosis/Indication Diagnosis SNOMED-CT Code Diagnosis ICD10 Code Diagnosis Note [id number] Emely Bowles MD Main Office [address] [facility] [place] [address] 01/23/2022 15:40:25 01/24/2022 00:14:23 Cosmetic surgery [id number] Z41.1 Health Concerns Section Related Observation LastModified by Organization Detai ls LastModified Time None Recorded Concern Status LastModified by Organization Details LastModified Time None Recorded Advance Directives Directive None Recorded Payers Encounter Date Sequence Insurance Name Policy Number Policy Lemon Covered Member ID Lemon Member ID Guarantor Name 01/23/2022 1 *SELF PAY* Vidal Glaser Notes Date Note Type Note Provider Name and Address Organization Details Recorded Time 01/23/2022 text/html 71-year-old female presents today for cosmetic treatment sebaceous gland hyperplasia. And a few seborrheic keratosis. She has no issues with bleeding healing or access scarring. Known to me from [place] Emely Bowles MD [address] [place], [address], [facility] 01/24/2022 00:12:07 OBGyn Episode No OBEpisode recorded.
--- OUTSIDE RECORDS SUMMARY | 2024-08-20 18:40 | XMS_ITS | Clinical Summary ---
Author Organization [facility] Address [address] [place] [address] Care Team Providers Care Engine Generator Assembler Name Role Phone Elsewhere, Pcp Primary Care Provider Unavailabl e Source Comments Patient records contain information from all sites at [facility]. For routine questions regarding patient records, call [phone] during business hours, M-F 8:00 AM - 5:00 PM Central Time. Record requests for emergency care only can be directed to [phone] at any time.[facility] Allergies Active Allergy Reactions Criticality Noted Date [...] (12/14/2017): Added automatically from request for surgery [id number] Cancer Colon Personal History 08/15/2017 Cancer Endometrium [...] Department Care Team Description 06/10/2024 10:30 AM HOOKMAN Office Visit Department of Urology in [place], [place] [address] [address] Nicolasa Fields APRN, C.N.P. Overactive Bladder (Primary Dx); Constipation 05/26/2024 10:00 AM HOOKMAN Procedure visit Department of Urology in [place], [place] [address], [place] [address] Schuyler Livingston M.D. Hypertonic Bladder (Primary Dx); [...] 0.6 oz pur e alcohol) Rarely drink. [facility] Utilities Answer Date Recorded In the [...] any clubs o r organizations such as catholic groups, unions, fraternal or athletic groups, or [...] Answer Date Recorded PHQ-2 Score 0 02/18/2024 [facility] [place] of Occupat ional Health - Occupational Stress [...] Master's degree (e.g., MA, MS, Enrique, MEd, ELOCUTION TEACHER, ALLYN) 01/09/2019 Comments No Sex and Gender Information Value Date Recorded Sex Assigned at Female 09/19/2017 7:29 PM CDT Legal Sex Female 5:53 AM HOOKMAN Gender Identity Female 09/19/2017 7:29 PM CDT [...] Body Mass Index 42.86 03/29/2023 3:04 PM HOOKMAN Plan of Treatment Health Maintenance Due Date [...] this topic Medical Devices Implanted Type Area Rn Prior Authorization Device Identifier Shelf Expiration Date Model / Serial / Lot Clp Hrzn Ti 6 Demetrius Tapia Dank - [id number] Implanted:Qty: 1 on 12/31/2017 by Monica Contreras M.D. at [facility] Hardware e.g. pins/screw s/rods Engagor [id number] / / Clp Hrzn Ti 6 Demetrius Red - [id number] Implanted:Qty: 1 on 12/31/2017 by Monica Contreras M.D. at [facility] Hardware e.g. pins/screw s/rods Weck (Div of Engagor) [id number] 07/21/2022 1201 / / [id number] J Gabo Keel Tray Tib Mb Sz 4.0 - Wright [id number] Implanted:Qty: 1 on 04/12/2010 Knee Implant Other/Legacy - See Implant Description [employer] Description:Device Manufactu rer - J [employer] J [employer]. Body Location - Other. Right. Device Status Text - KNEE [id number]. Sigma Post Stab.W Lug Fem Sz 4n Rt - Wright [id number] Implanted:Qty: 1 on 04/12/2010 Knee Implant Other/Legacy - See Implant Description [employer] Description:Device Manufactu rer - J [employer] J [employer]. Body Location - Other. Right. Device Status Text - KNEE [id number]. J J Tib Insert Sigma 4x12.5 - Wright [id number] Implanted:Qty: 1 on 04/12/2010 Knee Implant Other/Legacy - See Implant Description [employer] Description:Device Manufactu rer - J [employer] J Orth[employer]. Body Location - Other. Right. Device Status Text - KNEE [id number]. J J Sig Patella Oval 38 - Wright [id number] Implanted:Qty: 1 on 04/12/2010 Knee Implant Other/Legacy - See Implant Description [employer] Description:Device Manufactu rer - J [employer] J Orth[employer]. Body Location - Other. Right. Device Status Text - KNEE [id number]. Patch Dual Mesh 1mm 20.0 X 30 - Wright [id number] Implanted:Qty: 1 on 01/13/2009 Mesh or Patch Other/Legacy - See Implant Description [place] Description:Device Manufactu rer - [employer] [place] Body Location - ?. Not Applicable. Device Status Text - [id number]. Cement Bone Large - Wright [id number] Implanted:Qty: 1 on 04/12/2010 Misc Other [place] Description:Device Manufactu rer - Chelle Fabiola.. Device Status Text - MISCOTHER-2840. Cement Bone Small - Wright [id number] Implanted:Qty: 1 on 04/12/2010 Misc Other [place] Description:Device Manufactu rer - Chelle Fabiola.. Device Status Text - MISCOTHER-2841. Procedures Procedure Name Priority Date/Time Associated Diagnosis Comments URO CYSTO W/BOTOX Routine 05/26/2024 10:00 AM HOOKMAN Urinary Urge Incontinence BI BREAST DIAGNOSTIC BILATERAL WITH TOMOSYNTHESIS RAD - Routine (most inpatients and all outpatients) 03/29/2023 10:56 AM HOOKMAN Screening Mammogram Breast Cancer from Last 3 Months or Most Recently Relevant to Health Maintenance Results * Cysto w/botox (05/26/2024 10:00 AM HOOKMAN) Narrative Schuyler Livingston M.D. - 05/26/2024 10:00 AM HOOKMAN Schuyler Livingston M.D. 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 PROCEDURE Cystoscopy with injection of intravesical botulinum toxin. (CPT code 55563) MEDICATION Botulinum toxin 100 units mixed with [...] was injected into the urethra. A rigid 22-Swedish Olympus cystoscope with 30-degree lens was utilized [...] by: Schuyler Livingston M.D. 05/26/24 10:28 AM HOOKMAN Nicolasa Fields APRN C.N.P. UROLOGY ORDERABLE S Final Result * BI Breast Diagnostic Bilateral with Tomosynthesis (03/29/2023 10:56 AM HOOKMAN) Anatomical Region Laterality Modality Breast, Breast Imaging RST L OS, Breast Imaging ARZ LOS, Breast Imaging FLA LOS Bilateral Mammography 03/29/2023 11:0 6 AM HOOKMAN Impressions 03/29/2023 11:18 AM HOOKMAN No mammographic findings of malignancy. RECOMMENDATION: Annual Screening Mammogram ASSESSMENT: BI-RADS: 2: Benign. Narrative 03/29/2023 11:18 AM HOOKMAN EXAM: BI BREAST DIAGNOSTIC BILATERAL WITH TOMOSYNTHESIS [...] Recently Relevant to Health [place] [address] MEDICARE [facility] Advance Directives For more information, please contact: [phone] * Full Code (Latest Code Status on File) Date Activated Date Inactivated Comments 12/31/2017 8:57 AM 12/31/2017 7:23 PM Question Answer Comments Full Code: Not Discussed Due to: Not medically appropriate Care Teams Engine Generator Assembler Relationship Specialty Start Date End Date Elsewhere, Pcp PCP - General Internal Medicine 01/04/23
--- OUTSIDE RECORDS SUMMARY | 2024-08-20 18:40 | XMS_ITS ---
Author Organization [facility] Address [address] [place] [address] Care Team Providers Care Surgical Resident Name Role Phone Elsewhere, Pcp Primary Care [...] IA (cT1c, cN0, cM0, G1, ER: Positive, TN: Positive, HER2: Negative) right breast cancer. She continues annual mammography, and clinical breast exams. 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 on 02/04/2018 Overview (12/14/2017): Added automatically from request for surgery [id number] Cancer Colon Personal History 08/15/2017 Cancer Endometrium [...] 267 cGy 4,005 cGy Reference Points Delivered [id number] 02/25/2018 - 03/18/2018 4,005 cGy Treatment Summaries [...] was developed by a multidisciplinary team of [place] cancer providers to help you understand, discuss, [...] Medicine Breast Clinic Dr. Renee Redding/Elmira Calero [facility] Genetic Counselor Veronique Lackey Your point [...] Estrogen Receptor (ER) status positive Progesterone Receptor (TN) status positive HER2 pura protein status negative Surgical margins Clear (negative or clean) Was re-excision required? No Comments on re-excision Other pathology information [place] lymph node biopsy performed? 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 They could be technical sales representative. Some women have short times of heavy bleeding. Sometimes, they stop all of a sudden. Hot flashes. Hot flashes are often worse at night and can affect sleep or cause mood changes. Problems with your vagina or bladder. Tissues in these areas become label drier and thinner. You may be more likely [...] your life, including relationships, school, work, and fpc plans. Anger is a normal response to [...] spiritual framework. -Talk with your spiritual or hr leader to help guide you through some of the questions raised by your illness. -Consider using the Power Plant Electrician staff at [facility] to help you with your spiritual questions. x Back to Work Going back to work can be a challenging transition after cancer treatment. If you have questions about employment, ask your health care provider to refer you to a [facility] social director. He or shecan give you workplace information. [...] disability to have equal opportunities. A social director can help you look at your situation [...] Health and Human Services and National Cancer [place]ogan. (2014) Facing Forward: Life after cancer treatment. NIH Publications No. 14-2424. Resources [place] Cancer Society The [place] Cancer Society is a non-profit organization that has developed many resources for patients and families dealing with a cancer diagnosis. http://www.cancer.org National Cancer Cadogan The National Cancer Cadogan (NCI) is part of the National [place] for Health and is a governmental organization with a mission focused on cancer research and training. The NCI has developed many patient resources related to cancer. Included here is their Facing Forward which is an electronic resource focused on helping patients negotiate their lives after cancer treatment. http://www.cancer.gov http://www.cancer.gov/cancertopics/coping/lryd-dmsbh-glyapkyov [facility] Cancer Education Program www.[facility].org/cancer-education Cancer Support Community www.cancersupportcommunity.org/?gclid=UGky-9-4oFIKZKyRfVjokqUO5u [facility] Living with Cancer blog www.[employer]/livingwithcancer [facility] web site www.[facility].org Resolved Problems Problem Noted Date Diagnosed Date [...]
--- OUTSIDE RECORDS SUMMARY | 2024-08-20 18:41 | XMS_ITS | Clinical Summary ---
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) Active Problems Problem Noted Date Diagnosed [...] termite (current) use of anticoagulants 04/15/2010 01/09/2012 Overview (04/18/2010): INR Goal Range: 2.0 - 3.0 DVT (deep venous thrombosis) 04/29/2008 01/09/2012 Overview (07/06/2009): Updated by system to replace inactive record Other pulmonary embolism and infarction 04/29/2008 01/09/2012 Other lymphedema 04/29/2008 02/17/2019 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 03/01/2021 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 (current) use of anticoagulants 04/29/2008 01/09/2012 Encounters Date Type Department Care Team Description 07/24/2024 Telephone [facility] [address] [place] [address] Wil House DO Screening (Injection Prescreening- Lumbar MBB) 07/23/2024 11:00 AM CDT Office Visit [facility] [place] [address] [facility] [address] [place] [address] Wil House DO Consult (Low back pain ) 07/23/2024 Travel 07/20/2024 Travel 07/18/2024 Travel 07/08/2024 Telephone [facility] [address] [facility] [address] [place] [address] Wil House DO Screening (Spine Center Screening ) 06/06/2024 12:15 PM EPIC WILLOW SPECIALIST Telemedicine [facility] [address] [place] [address] [address] [place] [phone] Nanette Carpio, PERSONAL INVESTMENT ADVISER Telehealth 06/02/2024 Travel from Last 3 Months [...] on file Legal Sex Female 5:40 AM EPIC WILLOW SPECIALIST Gender Identity Not on file Sexual Orientation Not on file Travel History Travel Start Travel End [place] 07/18/2024 07/21/2024 Obstetrics History Last Filed Vital [...] REFLEX MEASURED LDL Routine 03/31/2024 11:11 AM EPIC WILLOW SPECIALIST Mixed hyperlipidemia COLONOSCOPY SCREENING Routine 02/08/2021 8:39 AM CDT Polyp of colon, unspecified part of colon, unspecified type ANTI HCV Routine 07/13/2015 11:05 AM CDT Need for hepatitis C screening test XR DXA BONE DENSITY 2 SITES AXIAL Routine 03/12/2014 11:18 AM EPIC WILLOW SPECIALIST Osteoporosis from Last 3 Months or Most Recently Relevant to Health Maintenance Results * LIPID PANEL W REFLEX MEASURED LDL (03/31/2024 11:11 AM EPIC WILLOW SPECIALIST) CHOLESTEROL, TOTAL 159 <200 mg/dL [facility] HDL CHOLESTEROL 57 > OR = 50 mg/dL [facility] TRIGLYCERIDES 91 <150 mg/dL [facility] LDL-CHOLESTEROL 83 mg/dL (calc) [facility] Comment: Reference range: <100 Desirable range <100 mg/dL for primary prevention; <70 mg/dL for patients with CHD or diabetic patients with > or = 2 CHD risk factors. LDL-C is now calculated using the Sheldon-Ilia calculation, which is a validated novel method providing better accuracy than the Friedewald equation in the estimation of LDL-C. Sheldon SS et al. LYSSA. 2013;310(19): 8199-9716 (http://education.Bliips/faq/IJP376) CHOL/HDLC RATIO 2.8 <5.0 (calc) [facility] NON HDL CHOLESTEROL 102 <130 mg/dL (calc) [facility] Comment: For patients with diabetes plus 1 major ASCVD risk factor, treating to a non-HDL-C goal of <100 mg/dL (LDL-C of <70 mg/dL) is considered a therapeutic option. Blood BLOOD SPECIMEN / Unknown 03/31/2024 11:11 AM EPIC WILLOW SPECIALIST 03/31/2024 11:12 AM EPIC WILLOW SPECIALIST Maurizio Moreno MD CHEMISTRY Final Result [employer] [facility] [address] [place] [address], [facility] [address] [place] [address] * COLONOSCOPY (02/08/2021 8:48 AM CDT) 02/08/2021 [...] adequate candidate for conscious sedation. The [id number] was passed through the anus and advanced [...] 8:48 AM Procedure Code(s): --- Professional --- 64526, Colonoscopy, flexible; with removalof tumor(s), polyp(s), or other lesion(s) bysnare technique Diagnosis Code(s): --- Professional --- Z85.038, Personal history of other malignant neoplasm of large intestine K63.5, Polyp of colon Z98.0, Intestinal bypass and anastomosisstatus CPT copyright 2020 [employer]. All rights reserved. The codes documented in this report are preliminary and upon fiscal clerk reviewmay be revised to meet current compliance requirements. Scope In: 9:34:49 AM Scope Withdrawal Time 0 hours 12 minutes 23 seconds Scope Out: 9:59:26 AM us Sheldon Love MD PROCEDURE ORD Final Res ult * ANTI HCV (07/13/2015 11:05 AM CDT) HEPATITIS C ANTIBODY Non-Reacti ve Non-Reacti ve 07/13/2015 6:02 PM CDT [facility] Blood specimen (specimen) BLOOD SPECIMEN / Unknown Butterfly / Unknown 07/13/2015 11:05 AM CDT 07/13/2015 11:05 AM CDT Narrative [facility] - 07/13/2015 6:02 PM CDT Antibodies to HCV not detected; does not exclude the possibility of exposure to HCV. us Maurizio Moreno MD SEND OUTS Final Result [facility] [address] [place] [address], [place] * XR DXA BONE DENSITY 2 SITES (03/12/2014 11:18 AM EPIC WILLOW SPECIALIST) Anatomical Region Laterality Modality Spine, HIPS, HIPL, HIPR Other Narrative 03/23/2014 2:06 PM EPIC WILLOW SPECIALIST Please see scanned document for results of this study. Procedure Note Shannan Cole PA - 03/23/2014 Please see scanned document for results of this study. us Maurizio Moreno MD DEXA Final Result from Last 3 Months or Most Recently Relevant to Health [place] [address] MEDICARE [place] ONLY [facility] MEDICARE PART A HB ONLY MEDICARE PART B HB ONLY [place] [phone] MEDICARE PB ONLY MEDICARE PART B HB ONLY Member Subscriber Plan / Payer ( fective 2013-Present) Name:Melita Sousa Member ID:[id number] Relation to Subscriber:Self Name:JailynMelita Subscriber ID:[id number] Payer ID:Not on file Group ID:NONE Type:Not on file Address: ATTN: CLAIMS [address] [employer] [facility] FED EMP Advance Directives Documents on File Type Date Recorded Patient Pharmacy Delivery Driver Expl anation Healthcare Directive 03/12/2014 12:00 AM 05-19-14 Care Teams Commercial Internship Relationship Specialty Start Date End Date Maurizio Moreno MD [address] [place] [address] PCP - General 08/10/05
== END 2024-08-20 18:42 | disposition home or self-care (01) ==
LOC: ED 18:38
PROVIDERS: Emergency Provider Emergency Medicine; PCP Family Medicine
DX: S52.501A Unspecified fracture of the lower end of right radius, initial encounter for closed fracture (principal); X50.0XXA Overexertion from strenuous movement or load, initial encounter; Y93.89 Activity, other specified; Y92.015 Private garage of single-family (private) house as the place of occurrence of the external cause
CPT/HCPCS: 73110; 99282; 99283